=== PATIENT | female | born 1995 | race Caucasian/White ===

== ENCOUNTER → 2017-09-06 14:10 | Outpatient (CLI) | payer SELFPAY ==
--- NOTE | 2017-09-06 14:15 | RAD_ITS ---
STUDY: X-RAY - LEFT ANKLE REASON FOR EXAM: Female, 21 years old. Pain and swelling following a fall. TECHNIQUE: 3 view(s) of the ankle. COMPARISON: None. FINDINGS: Normal visualized distal tibia and fibula. Normal medial and lateral malleoli. Normal tibiotalar articulation and ankle mortise. Normal visualized talus and calcaneus. The visualized subtalar, talonavicular, calcaneocuboid and tarsal articulations are normal. Lateral soft tissue swelling. RAD/Ankle min 3 Views IMPRESSION: Lateral soft tissue swelling. No fracture is seen. Electronically Signed: Chano Rodriguez MD at 14:32 EDT Tel [phone], Service support ,
== END ==
PROVIDERS: Family Provider Family Medicine; PCP Family Medicine; Visit Provider Physician Assistant
DX: S93.402A Sprain of unspecified ligament of left ankle, initial encounter (principal)
CPT/HCPCS: 73610

== ENCOUNTER 2018-12-03 19:09 | Emergency (ER) | payer SELFPAY ==
[2018-12-03 19:10] VITALS: BP 128/77; PULSE 96; RESP 16; TEMP 37.4; O2SAT 95; BMI 24.6
--- NOTE | 2018-12-03 19:29 | EKG12_ITS ---
Test Reason : CP Blood Pressure : / mmHG Vent. Rate : 090 BPM Atrial Rate : 090 BPM P-R Int : 130 ms QRS Dur : 076 ms QT Int : 358 ms P-R-T Axes : 042 090 027 degrees QTc Int : 437 ms Normal sinus rhythm Rightward axis Borderline ECG Confirmed by DANDY HAMM ([id number]), social media editor ADA THAPA ([id number]) on 12/10/2018 9:02:34 AM Referred By: RU Confirmed By:DANYD HAMM
--- NOTE | 2018-12-03 19:50 | RAD_ITS ---
STUDY: X-RAY CHEST REASON FOR EXAM: Female, 23 years old. Chest pain TECHNIQUE: Frontal and lateral views of the chest COMPARISON: None. FINDINGS: The lungs are clear. There are no pleural effusions. There is no pneumothorax. The heart is normal in size. There is scoliosis noted in the spine. RAD/Chest PA and Lateral IMPRESSION: No acute thoracic pathology. Scoliosis. Electronically Signed: Ha Tabor, at 20:54 EDT Tel , Service support ,
[2018-12-03 19:53] LABS: Absolute Lymphocyte Count 2.42 X10^3/uL (0.83-4.51); Absolute Neutrophil Count 3.8 X10^3/uL (2.0-7.7); Basophil# 0.05 X10^3/uL; Basophil% 0.7 % (0-1); Eosinophil# 0.14 X10^3/uL; Hematocrit 41.1 % (37-47); Hemoglobin 13.9 g/dL (12.0-15.0); Lymphocyte # 2.42 X10^3/ul (4.0); Lymphocyte % 34.6 % (19-41); Mean Corp Hgb Conc 33.8 g/dL (32-36); Mean Corpuscular Hgb 30.5 pg (27.0-32.0); Mean Corpuscular Volume 90.3 fL (81-99); Mean Platelet Vol. 11.4 fl (6.2-12.0); Monocyte# 0.59 X10^3/uL; Monocyte% 8.4 % (0-10); NRBC Flagged by Analyzer 0 % (0-5); Neutrophil # 3.77 X10^3/uL (2.7-7.7); Platelet Count 202 K/mm3 (150-450); RBC Distribution Width CV 12.1 % (11.6-14.6); Red Blood Count 4.55 M/mm3 (4.2-5.4)
[2018-12-03 20:11] LABS: Anion Gap 6 (5-15); BUN 8 mg/dL (7-18); BUN/Creat Ratio 13.9 RATIO (10-20); Calcium,Total 8.9 mg/dL (8.5-10.1); Chloride 107 mmol/L (98-107); Creatinine, Serum 0.58 mg/dL (0.55-1.02); EST Glomerular Filtration Rate 136 mL/min (>60); Est Glom Filt Rate - Afr Amer 165 mL/min (>60); Estimated Creatinine Clearance 129.53 ml/min; Glucose 84 mg/dL (74-106); Potassium 3.7 mmol/L (3.5-5.1); Sodium Level 138 mmol/L (136-145)
--- NOTE | 2018-12-03 20:50 | ED.VIS.GEN ---
History of Present Illness Chief Complaint: Chest Pain Past Medical History - Allergies and Home Meds Allergies/Adverse Reactions: Allergies Penicillins [PCN] Adverse Reaction (Verified 09/06/17 13:18) Nausea/Vom/Diarrhea Primary Care Physician: Nelida Pablo DO [Primary Care Provider] - Smoking Status: Current some day smoker Physical Exam Vital Signs/Narrative: Vital Signs Temp Pulse Resp BP Pulse Ox 12/03/18 19:10 99.3 F H 96 16 128/77 H 95 Diagnostic/Tx/Re-eval Chest X-Ray - ED: 2 View, Read by ED Physician, No Acute Disease Abnormal Lab Results 12/03/18 12/03/18 19:45 19:45 WBC 7.0 RBC 4.55 Hgb 13.9 Hct 41.1 MCV 90.3 MCH 30.5 MCHC 33.8 RDW Std Deviation 40.0 RDW Coeff of Caitlin 12.1 Plt Count 202 MPV 11.4 Immature Gran % (Auto) 0.300 Neut % (Auto) 54.0 Lymph % (Auto) 34.6 [place]in % (Auto) 8.4 Eos % (Auto) 2.0 Baso % (Auto) 0.7 Absolute Neuts (auto) 3.8 Absolute Lymphs (auto) 2.42 Nucleated RBC % 0 Sodium 138 Potassium 3.7 Chloride 107 Carbon Dioxide 25.0 Anion Gap 6 BUN 8 Creatinine 0.58 Estim Creat Clear Calc 129.53 Est GFR (MDRD) Af Amer 165 Est GFR (MDRD) Non-Af 136 BUN/Creatinine Ratio 13.9 Glucose 84 Calcium 8.9 Troponin I < 0.015 - EKG Initial EKG Interpretation: Sinus Rhythm - Sinus rate of 90, no ST changes. Nonspecific T wave inversion in leads III. Old when compared to September 2009. Thank you - Medical Decision Making Patient EKG with nonspecific findings. Cardiac risk factors tobacco with vaping. PERC criteria negative. Chest x-ray reviewed by myself 2 view shows no acute process. Cardiac work-up was negative. Heart score is a 1. Discussed with patient's history of tobacco and vaping this is concerning that can cause her symptoms recommending cessation. Patient understands and will follow up with her PCP for reevaluation. Signs and symptoms discussed return. All questions were answered. ED Disposition - Plan for ED Patient: Disposition: Home or Assisted Living Diagnosis: Chest pain Instructions: CHEST PAIN, Uncertain Cause Referrals: Nelida Pablo DO [Primary Care Provider] - 3-5 Days
[2018-12-03 21:05] VITALS: BP 103/70; PULSE 84; RESP 18; O2SAT 97
== END 2018-12-03 21:05 | disposition home or self-care (01) ==
PROVIDERS: Emergency Provider Emergency Medicine; Family Provider Family Medicine; PCP Family Medicine
DX: R07.9 Chest pain, unspecified (principal); F17.290 Nicotine dependence, other tobacco product, uncomplicated
CPT/HCPCS: 71046; 80048; 84484; 85025; 93005; 99284; A4216

== ENCOUNTER → 2019-08-28 | Outpatient (CLI) | payer SELFPAY | END | disposition home or self-care (01) | PROVIDERS: PCP Family Medicine; Referring Provider Family Medicine; Visit Provider Family Medicine | DX: Z20.828 Contact with and (suspected) exposure to other viral communicable diseases (principal) | CPT/HCPCS: 87635; G2023; U0003 ==

== ENCOUNTER → 2020-06-19 11:53 | Outpatient (CLI) | payer OTHER, SELFPAY ==
[2020-06-19 13:59] LABS: hCG Titer Quant., Serum 2 mIU/mL (1-3)
== END ==
PROVIDERS: PCP Family Medicine; Visit Provider Obstetrics & Gynecology
DX: N92.6 Irregular menstruation, unspecified (principal)
CPT/HCPCS: 36415; 84702; 86850; 86900; 86901

== ENCOUNTER 2020-06-19 18:43 | Emergency (ER) | payer OTHER, SELFPAY ==
[2020-06-19 18:44] VITALS: BP 125/85; PULSE 79; RESP 17; TEMP 36.6; O2SAT 100; BMI 28.8
--- NOTE | 2020-06-19 19:13 | US_ITS ---
INDICATION: bleeding EXAMINATION: US OB Transvaginal TECHNIQUE: Transabdominal pelvic ultrasound was performed. Grayscale, spectral waveform, and color flow Doppler evaluation of the adnexa. COMPARISON: None. FINDINGS: UTERUS: Measures 9.2 x 4.9 x 4 cm. Heterogeneous endometrium. RIGHT OVARY: Measures 2.5 x 2.6 x 2.6 cm. Normal. LEFT OVARY: Measures 2.3 x 2.6 x 1.3 cm. Normal. FREE FLUID: None. INTRAUTERINE GESTATIONAL SAC(s) (size/shape): None visualized. US/Transvaginal w/Preg US IMPRESSION: Constellation of findings including non-visualized IUP, heterogeneous endometrium, heavy vaginal bleeding and downtrending hcg indicate an in progress. Electronically Signed: Burton Egan MD at 21:39 EDT Tel , Service support ,
--- NOTE | 2020-06-19 19:24 | EDS_ITS ---
HPI HPI - Female History of Present Illness Chief Complaint: Vag Bld, Preg Informant: patient Narrative Narrative: 24-year-old female presents with vaginal bleeding in . Patient states she had a positive home test. She went to her family doctor and had a negative urine test. She was then sent for a serum quant test which she had performed [facility] on June 16. She states she was told this was consistent with a 4-week . She started having bleeding today which she describes as heavier than a normal period. She has lower pelvic cramping. She denies other complaints. PFSH PFSH Home Medications hydroxyzine HCl 50 mg tablet 50 mg PO DAILY 09/06/17 [History Last Taken Unknown] minocycline 50 mg capsule 50 mg PO QDAY 09/06/17 [History Last Taken Unknown] Allergy/AdvReac Type Severity Reaction Status Date / Time Penicillins [PCN] AdvReac Nausea/Vom/ Verified 06/19/20 18:44 Diarrhea Social History Smoking Status: Current some day smoker alcohol intake: current alcohol intake frequency: a few times a month ROS ROS ED Constitutional Constitutional ED: Denies fever(s) ENT ENT ED: Denies rhinorrhea or sore throat Cardiovascular Cardiovascular: Denies chest pain or palpitations Respiratory/Chest Respiratory/Chest: Denies cough or dyspnea Gastrointestinal Gastrointestinal: Reports abdominal pain; Denies diarrhea, nausea or vomiting Genitourinary Genitourinary ED: Denies dysuria Musculoskeletal Musculoskeletal: Denies myalgias Integumentary Denies rash Neurologic Neurologic: Denies headache(s) EXAM Physical Exam Const Vital Signs: 06/19/20 18:44 Temperature 97.8 F Temperature Source Temporal Pulse Rate 79 Respiratory Rate 17 Blood Pressure 125/85 H Blood Pressure Mean 98 Pulse Ox 100 Oxygen Delivery Method Room Air Positive well nourished and well developed General Appearance ED: well developed HEENT Reports normocephalic and head/scalp atraumatic Eyes PERRL and EOMs intact bilaterally Neck supple General: Negative for tenderness Chest Wall inspection of chest normal Resp normal respiratory effort and clear to auscultation bilaterally Cardio regular rate and regular rhythm GI soft to palpation GI Narrative: mild left lower quadrant tenderness with no rebound or guarding. Pelvic exam: blood is cleared with cotton swab. She has no active bleeding. Cervix is closed. Palpation: soft; Negative for guarding or rebound tenderness present no CVA tenderness Extremity normal to inspection Neuro oriented x3 Sensorium / Orientation: alert Psych mental status grossly normal MDM MDM MDM Narrative Medical decision making narrative: hCG quant was obtained from [employer] and was 12 on June 16. Blood type O+. Quant today 2. She was given Tylenol, morphine, Zofran IV. On reevaluation she is resting comfortably and feeling improved. Pelvic ultrasound shows findings indicating an in progress. Discussed with Dr. Ngo. Patient will follow-up in the office. Advised return to ED for worsening complaints. Lab Data Attestation: I reviewed the patient's lab results. Labs: Laboratory Results - last 24 hr 06/19/20 20:00 HCG, Quant 2 Radiography Diagnostic Testing: Radiology Impression Obstetrics Ultrasound 06/19/20 19:13 IMPRESSION: Constellation of findings including non-visualized IUP, heterogeneous endometrium, heavy vaginal bleeding and downtrending hcg indicate an in progress. Electronically Signed: Burton Egan MD at 21:39 EDT Tel , Service support , Discharge Plan Triage Chief Complaint: Vag Bld, Preg ED Provider: Beverly Castillo Dx/Rx/DC Orders Clinical Impression: Threatened Instructions: ED Possible Miscarriage ... Prescriptions: No Action minocycline 50 mg capsule 50 mg PO QDAY RF: 0 hydroxyzine HCl 50 mg tablet 50 mg PO DAILY RF: 0 Primary Care Provider: Nelida Pablo Referrals: Nelida Pablo DO [Primary Care Provider] - Nohelia Ngo MD [STAFF PHYSICIAN] - Disposition Disposition: Home, self care
[2020-06-19] MEDS: Acetaminophen 500 MG Tablet 1000 MG PO (20:11)
[2020-06-19] MEDS: Morphine 2 MG/ML Syringe IV (20:12)
[2020-06-19] MEDS: Ondansetron 4 MG/2 ML Vial IV (20:12)
[2020-06-19 20:27] LABS: hCG Titer Quant., Serum 2 mIU/mL (1-3)
== END 2020-06-19 22:36 | disposition home or self-care (01) ==
PROVIDERS: Emergency Provider Emergency Medicine; PCP Family Medicine
DX: O20.0 Threatened abortion (principal); F17.200 Nicotine dependence, unspecified, uncomplicated; Z3A.01 Less than 8 weeks gestation of pregnancy
CPT/HCPCS: 76817; 84702; 96374; 96375; 99284; A4216; J2405

== ENCOUNTER 2021-04-27 14:10 | Outpatient (CLI) | payer BC, SELFPAY ==
[2021-05-03 15:59] LABS: HPV Reflexed? NOT INDICATED
== END 2021-04-27 23:59 | disposition home or self-care (01) ==
PROVIDERS: PCP Family Medicine; Referring Provider Nurse Practitioner Women's Health; Visit Provider Nurse Practitioner Women's Health
DX: Z12.4 Encounter for screening for malignant neoplasm of cervix (principal)
CPT/HCPCS: 88175; G0145

== ENCOUNTER → 2021-08-24 | Outpatient (CLI) | payer BC, SELFPAY ==
[2021-08-24 13:52] LABS: hCG Titer Quant., Serum 15248 mIU/mL (1-3)
[2021-08-27 00:07] LABS: Chlamydia By Nucleic Acid AMP Negative (Negative)
[2021-08-27 07:49] LABS: Gonococcus By Nucleic Acid AMP Negative (Negative)
== END | disposition home or self-care (01) ==
PROVIDERS: Referring Provider Obstetrics & Gynecology; Visit Provider Obstetrics & Gynecology
DX: O20.0 Threatened abortion (principal); Z3A.00 Weeks of gestation of pregnancy not specified
CPT/HCPCS: 36415; 84702; 87491; 87591

== ENCOUNTER → 2021-08-26 | Outpatient (CLI) | payer BC, SELFPAY ==
[2021-08-26 13:17] LABS: hCG Titer Quant., Serum 23039 mIU/mL (1-3)
== END | disposition home or self-care (01) ==
LOC: LAB 11:55
PROVIDERS: Visit Provider Obstetrics & Gynecology
DX: O20.0 Threatened abortion (principal)
CPT/HCPCS: 36415; 84702

== ENCOUNTER → 2021-09-20 | Outpatient (CLI) | payer BC, SELFPAY ==
[2021-09-20 17:14] LABS: Amphetamine Urine VISTA NEGATIVE (<1000 ng/mL); Barbiturate Urine VISTA NEGATIVE (< 200 ng/mL); Benzodiazepine Urine VISTA NEGATIVE (< 200 ng/mL); Cocaine Urine VISTA NEGATIVE (< 300 ng/mL); Ecstacy Urine VISTA NEGATIVE (< 500 ng/mL); Methadone Urine VISTA NEGATIVE (< 300 ng/mL); PCP Urine VISTA NEGATIVE (< 25 ng/mL); THC Urine VISTA NEGATIVE (< 50 ng/mL); Vista UDS pH Range 5
[2021-09-23 06:07] LABS: Chlamydia By Nucleic Acid AMP Negative (Negative)
[2021-09-23 07:35] LABS: Gonococcus By Nucleic Acid AMP Negative (Negative)
== END | disposition home or self-care (01) ==
LOC: LABSPEC 16:25
PROVIDERS: Visit Provider Obstetrics & Gynecology
DX: Z34.90 Encounter for supervision of normal pregnancy, unspecified, unspecified trimester (principal)
CPT/HCPCS: 80307; 87086; 87491; 87591

== ENCOUNTER 2021-10-13 14:52 | Emergency (ER) | payer BC, SELFPAY ==
[2021-10-13 14:53] VITALS: BP 130/72; PULSE 90; RESP 16; TEMP 36.6; O2SAT 99; BMI 34.2
--- NOTE | 2021-10-13 14:57 | ED.RN ---
PT TOOK HYDRALAZING 25 MG AT 1430
--- NOTE | 2021-10-13 15:40 | US_ITS ---
STUDY: FIRST TRIMESTER OBSTETRICAL ULTRASOUND EXAMINATION OF 1612 HOURS ON 10/13/2021 REASON FOR EXAM: 25-year-old female at 13 weeks with cramping. LMP: 07/13/2021. TECHNIQUE: TECHNICAL QUALITY: Adequate. PRIOR ULTRASOUND: None. FINDINGS: There is a mildly enlarged uterus compatible with early . It measures 15.5 cm in length by 9.4 centers in AP diameter by 14.7 cm in transverse diameter. There is evidence of a cingulate uterine with a crown-rump length measurement of 7.7 cm, compatible gestational age of 13 weeks and 4 days. By last menstrual period, it would be 13 weeks 1 day. There is a heart rate is 157 bpm. There is a normal amount of amniotic fluid present for age. There is anterior grade 1 placenta without evidence of previa or abruption. Right ovary measures 2.6 cm x 1.7 cm x 2.4 cm and the left ovary measures 3.1 cm x 1.8 cm x 1.6 cm. There is no evidence of ovarian cystic or solid mass lesions. There is no evidence of ovarian torsion. There is no evidence of a pelvic mass lesions or free fluid in the cul-de-sac. US/Transvaginal w/Preg US IMPRESSION: 1. Single intrauterine with a gestational age of 13 weeks and 4 days (age by last menstrual. 13 weeks 1 day) with a heart rate of 157 bpm. 2. Normal amount of amniotic fluid for age. 3. Anterior grade 1 placenta without previa or abruption. 4. Mildly enlarged uterus compatible with early . 5. Normal-appearing ovaries without cystic or solid mass lesions or torsion. 6. No evidence of pelvic mass lesions or free fluid in the cul-de-sac. Electronically Signed: Jameel Huff MD at 18:04 EDT ,
--- NOTE | 2021-10-13 15:43 | EX.ED.DYSGE1 ---
HPI History of Present Illness Chief Complaint: Abd Pain Informant: patient and family Narrative Narrative: History is from patient and mother. This patient is 13 weeks . She is G2, P0. She had a miscarriage about a year ago. She states she has been having nausea vomiting abdominal cramping and she is very anxious and she just needs to know that everything is okay. She has been having nausea and vomiting throughout this . She did not talk to her [employer] physician about it because she thought this was normal. She has been getting her intermittent nausea vomiting and cramping mostly in the lower abdomen the entire . It has been a little bit worse the last few weeks. She is also had some constipation but is moving her bowels. She has had a small amount of bleeding intermittently with intercourse but is not having bleeding now. No leakage of fluid. Most of her abdominal cramping is in the lower abdomen. This is where it has been since early . No fevers or chills. No right upper quadrant pain. No chest pain or trouble breathing. She also admits to being very anxious but she has a history of anxiety. [facility] Medical History Anxiety Anxiety Complete Ear discomfort Otitis externa of right ear PTSD (post-traumatic stress disorder) Supervision of normal Home Medications fluoxetine 20 mg capsule (Prozac) 20 mg PO DAILY 04/27/21 [History Last Taken Unknown] docosahexaenoic acid 200 mg capsule ( DHA) mg PO 08/24/21 [History Last Taken Unknown] ondansetron 4 mg disintegrating tablet 4 mg PO Q8H PRN nausea and vomiting #10 tabs 10/13/21 [Rx Last Taken Unknown] Allergy/AdvReac Type Severity Reaction Status Date / Time Penicillins [PCN] AdvReac Nausea/Vom/ Verified 10/13/21 14:56 Diarrhea Family History Mother Breast cancer, Onset Age: 47 Social History adopted: No household members: significant other housing: house current occupation: [employer] current occupational exposures/hazards: No pets and animals: Yes (Not managing the litter boxes) pets and animals: cat(s) history of recent travel: No Smoking Status: Never smoker Electronic Cigarette Use: with nicotine and not used alcohol intake: former details: social substance use type: does not use well-balanced diet: about half the time caffeine: Yes Type: carbonated beverages Number of servings: 1 and coffee Number of servings: 1 eating out: 1-3 times/week during the past year weight has: remained stable what type of physical activity do you participate in: none daniel/yarsani: None seatbelt use: always do you feel safe at home: Yes additional social history: ALYSSA Reina Works at [employer] ROS ROS ED Constitutional Constitutional ED: Denies chills, fever(s) or sweats Eyes Eyes: Denies change in vision ENT ENT ED: Reports other Details: Patient also had a negative COVID test just several days ago. ; Denies rhinorrhea or sore throat Cardiovascular Cardiovascular: Denies chest pain or palpitations Respiratory/Chest Respiratory/Chest: Denies cough or dyspnea Gastrointestinal Gastrointestinal: Reports abdominal pain, constipation, nausea and vomiting; Denies diarrhea or melena Genitourinary Genitourinary ED: Denies dysuria, hematuria or urinary frequency Musculoskeletal Musculoskeletal: Reports back pain and other Details: She does get some lumbar discomfort but this is not new or different. Integumentary Denies rash Neurologic Neurologic: Denies headache(s) or paresthesias Psychiatric Psychiatric: Reports anxiety Endocrine Endocrinology: Denies polydipsia or polyuria Hematologic/Lymphatic Hematologic/Lymphatic: Denies easy bleeding or easy bruising EXAM Physical Exam Const Vital Signs: 10/13/21 14:53 10/13/21 17:44 Temperature 97.9 F Temperature Source Temporal Pulse Rate 90 Respiratory Rate 16 16 Blood Pressure 130/72 H Blood Pressure Mean 91 Pulse Ox 99 Oxygen Delivery Method Room Air Positive well developed General Appearance ED: well developed and NAD HEENT HEENT Narrative: Mucous membranes are just minimally dry. Eyes General Eye ED: Negative for scleral icterus Chest Wall inspection of chest normal Resp normal respiratory effort and clear to auscultation bilaterally Cardio regular rate and regular rhythm GI normal to inspection, nondistended, normoactive bowel sounds, non-tender and non-distended GI Narrative: Patient gets cramping of her lower abdomen. But her abdomen exam is benign. There is no tenderness anywhere. Her bowel sounds are normal. Back/Spine no CVA tenderness Extremity normal to inspection General Extremety ED: Negative for edema or tenderness General Extremity: Negative for edema Neuro Sensorium / Orientation: alert Psych Mood & Affect: anxious; Negative for tearful Skin no rashes or lesions noted MDM MDM MDM Narrative Medical decision making narrative: CBC electrolytes and urine are normal. Patient's recheck. She feels great and wants to go out to eat. She is not nauseated at all. We then got her ultrasound back that shows no acute process. I will get her home on some Zofran. She will follow-up with her [employer]. She has an appointment coming up in just a short time. Lab Data Attestation: I reviewed the patient's lab results. Labs: Laboratory Results - last 24 hr 10/13/21 10/13/21 10/13/21 15:52 15:52 15:52 WBC 10.5 RBC 4.22 Hgb 13.2 Hct 37.7 MCV 89.3 MCH 31.3 MCHC 35.0 RDW Std Deviation 39.9 RDW Coeff of Caitlin 12.3 Plt Count 276 MPV 10.8 Immature Gran % (Auto) 0.400 Neut % (Auto) 69.6 Lymph % (Auto) 22.4 Sharp % (Auto) 6.2 Eos % (Auto) 1.1 Baso % (Auto) 0.3 Absolute Neuts (auto) 7.3 Absolute Lymphs (auto) 2.34 Nucleated RBC % 0 Sodium 137 Potassium 3.8 Chloride 104 Carbon Dioxide 26.0 Anion Gap 7 BUN 8 Creatinine 0.53 L Estim Creat Clear Calc 114.53 Est GFR (MDRD) Af Amer 176 Est GFR (MDRD) Non-Af 146 BUN/Creatinine Ratio 15.0 Glucose 83 Calcium 9.5 Urine Color Straw Urine Clarity Clear Urine pH 6.5 Ur Specific [place] 1.010 Urine Protein Negative Urine Glucose (UA) Normal Urine Ketones Negative Urine Occult Blood Negative Urine Nitrite Negative Urine Bilirubin Negative Urine Urobilinogen Normal Ur Leukocyte Esterase Negative Urine RBC 0 SEEN Urine WBC 0 SEEN Ur Squamous Epith Cells 0 SEEN Ur Transition Epith Cell 0-5 SEEN Urine Bacteria 1+ Urine Mucus 0 SEEN Radiography Diagnostic Testing: Clinical Impression(s) from Imaging Studies Obstetrics Ultrasound 10/13/21 15:40 IMPRESSION: 1. Single intrauterine with a gestational age of 13 weeks and 4 days (age by last menstrual. 13 weeks 1 day) with a heart rate of 157 bpm. 2. Normal amount of amniotic fluid for age. 3. Anterior grade 1 placenta without previa or abruption. 4. Mildly enlarged uterus compatible with early . 5. Normal-appearing ovaries without cystic or solid mass lesions or torsion. 6. No evidence of pelvic mass lesions or free fluid in the cul-de-sac. Electronically Signed: Jameel Huff MD at 18:04 EDT , Discharge Plan Triage Chief Complaint: Abd Pain ED Provider: James Shearer Dx/Rx/DC Orders Clinical Impression: Hyperemesis gravidarum Instructions: ED Hyperemesis Gravidarum Prescriptions: New ondansetron 4 mg tablet,disintegrating 4 mg PO Q8H PRN (Reason: nausea and vomiting) Qty: 10 0RF No Action fluoxetine [Prozac] 20 mg capsule 20 mg PO DAILY DHA 200 mg capsule PO Primary Care Provider: Care Physician,No Primary Referrals: Nohelia Ngo MD [Med Staff - Active Staff] - As soon as possible Care Physician,No Primary [Primary Care Provider] - Disposition Disposition: Home, Self Care
[2021-10-13] MEDS: 0.9% Normal Saline 1,000 ML 1000 ML IV (15:51)
[2021-10-13] MEDS: Ondansetron 4 MG/2 ML Vial IV (15:52)
[2021-10-13 16:06] LABS: Mucous, Urine 0 SEEN /hpf (<or=2+); Red Blood Cells-Urine 0 SEEN /hpf (0-5); Squamous Epithelial Cells - UA 0 SEEN /hpf (5-10); White Blood Cells 0 SEEN /hpf (0-5)
[2021-10-13 16:10] LABS: Color, Urine Straw (Yellow); Glucose, Dipstick Normal (Normal); Ketone-Dipstick Negative (Negative); Leukocyte Esterase-Dipstick Negative /ul (Negative); Nitrite-Dipstick Negative (Negative); Occult Blood-Urine Negative /ul (Negative); Protein-Dipstick Negative (Negative); Urine Bilirubin Dipstick Negative (Negative); Urine Clarity Clear (Clear); Urine Urobilinogen Normal (Normal); Urine pH 6.5 (5.0 - 8.0)
[2021-10-13 16:11] LABS: Absolute Lymphocyte Count 2.34 X10^3/uL (0.83-4.51); Absolute Neutrophil Count 7.3 X10^3/uL (2.0-7.7); Basophil# 0.03 X10^3/uL; Basophil% 0.3 % (0-1); Eosinophil# 0.11 X10^3/uL; Eosinophils% 1.1 % (0-5); Hematocrit 37.7 % (37-47); Hemoglobin 13.2 g/dL (12.0-15.0); Lymphocyte # 2.34 X10^3/ul (0.83-4.51); Lymphocyte % 22.4 % (19-41); Mean Corpuscular Hgb 31.3 pg (27.0-32.0); Mean Corpuscular Volume 89.3 fL (81-99); Mean Platelet Vol. 10.8 fl (6.2-12.0); Monocyte# 0.65 X10^3/uL; Monocyte% 6.2 % (0-10); NRBC Flagged by Analyzer 0 % (0-5); Neutrophil # 7.28 X10^3/uL (2.7-7.7); Neutrophil % 69.6 % (47-70); Platelet Count 276 K/mm3 (150-450); RBC Distribution Width CV 12.3 % (11.6-14.6); RBC Distribution Width SD 39.9 fl (35.1-43.9); Red Blood Count 4.22 M/mm3 (4.2-5.4); White Blood Count 10.5 K/mm3 (4.4-11.0)
[2021-10-13 16:22] LABS: Anion Gap 7 (5-15); BUN 8 mg/dL (7-18); Calcium,Total 9.5 mg/dL (8.5-10.1); Chloride 104 mmol/L (98-107); Creatinine, Serum 0.53 mg/dL (0.55-1.02); EST Glomerular Filtration Rate 146 mL/min (>60); Est Glom Filt Rate - Afr Amer 176 mL/min (>60); Estimated Creatinine Clearance 114.53 ml/min; Glucose 83 mg/dL (74-106); Potassium 3.8 mmol/L (3.5-5.1); Sodium Level 137 mmol/L (136-145); Transitional Epithelial - Ur 0-5 SEEN /hpf (0-5)
[2021-10-13 16:23] LABS: Bacteria 1+ /hpf (None Seen)
[2021-10-13 17:44] VITALS: RESP 16
== END 2021-10-13 18:30 | disposition home or self-care (01) ==
PROVIDERS: Emergency Provider Emergency Medicine; Visit Provider Emergency Medicine
DX: O21.0 Mild hyperemesis gravidarum (principal); O99.341 Other mental disorders complicating pregnancy, first trimester; F41.9 Anxiety disorder, unspecified; Z79.899 Other long term (current) drug therapy; Z3A.13 13 weeks gestation of pregnancy
CPT/HCPCS: 76817; 80048; 81001; 85025; 96361; 96374; 99283; J2405

== ENCOUNTER → 2021-10-18 | Outpatient (CLI) | payer BC, SELFPAY ==
[2021-10-18 13:33] LABS: Absolute Lymphocyte Count 1.88 X10^3/uL (0.83-4.51); Absolute Neutrophil Count 6.9 X10^3/uL (2.0-7.7); Basophil# 0.03 X10^3/uL; Basophil% 0.3 % (0-1); Eosinophil# 0.15 X10^3/uL; Eosinophils% 1.6 % (0-5); Hematocrit 35.6 % (37-47); Hemoglobin 12.2 g/dL (12.0-15.0); Lymphocyte # 1.88 X10^3/ul (0.83-4.51); Lymphocyte % 19.9 % (19-41); Mean Corp Hgb Conc 34.3 g/dL (32-36); Mean Corpuscular Volume 90.6 fL (81-99); Mean Platelet Vol. 11.6 fl (6.2-12.0); Monocyte# 0.48 X10^3/uL; Monocyte% 5.1 % (0-10); NRBC Flagged by Analyzer 0 % (0-5); Neutrophil # 6.89 X10^3/uL (2.7-7.7); Neutrophil % 72.8 % (47-70); Platelet Count 237 K/mm3 (150-450); RBC Distribution Width CV 12.4 % (11.6-14.6); RBC Distribution Width SD 41.1 fl (35.1-43.9); Red Blood Count 3.93 M/mm3 (4.2-5.4); White Blood Count 9.5 K/mm3 (4.4-11.0)
[2021-10-18 13:56] LABS: Glucose Challenge Gest 1H 50g 128 mg/dL (70-140)
[2021-10-18 15:51] LABS: HIV - WCH Non-Reactive (Nonreactive); Hepatitis B Surface Antigen Non-Reactive (Nonreactive); Hepatitis C Antibody Non-Reactive (Nonreactive); Rubella IgG Reactive (Nonreactive); Syphilis Antibodies Non-reactive
== END | disposition home or self-care (01) ==
PROVIDERS: Visit Provider Obstetrics & Gynecology
DX: O99.210 Obesity complicating pregnancy, unspecified trimester (principal)
CPT/HCPCS: 36415; 82950; 85025; 86703; 86762; 86780; 86803; 86850; 86900; 86901; 87340

== ENCOUNTER → 2021-11-29 | Outpatient (CLI) | payer BC, SELFPAY ==
--- NOTE | 2021-11-29 07:54 | US_ITS ---
STUDY: SECOND AND THIRD TRIMESTER OBSTETRICAL ULTRASOUND REASON FOR EXAM: Female, 26 years old anatomy LMP: Unknown. TECHNIQUE: Transabdominal and Transvaginal TECHNICAL QUALITY: Adequate. PRIOR ULTRASOUND: Comparison is made with prior study 10/13/2021. FINDINGS: There is a single intrauterine fetus. The fetus is in a transverse lie with the head on the maternal right side. There is demonstrated cardiac activity with a heart rate of 140 bpm. There is a normal amniotic fluid volume. The largest amniotic fluid pocket measures 5.6 cm x 3 cm. The amniotic fluid index (SCOTT) is within normal limits. The placenta is anterior in location and is not low lying. There are Grade 0 placental changes. The cervix measures 5 cm in length. The bilateral adnexal regions are normal. BIOMETRY: BPD: 4.9 cm: 20 weeks, 5 days HC: 17.13 cm: 19 weeks, 5 days AC: 15.8 cm: 20 weeks, 6 days FL: 3 cm: 19 weeks, 2 days CI: 86% FL/BPD: 62% FL/HC: FL/AC: 19% HC/AC: 1.09 age by current US: 19 weeks, 5 days. NADEGE by current US: 04/20/2022. Estimated weight: 343 grams, +/- 52 grams, 97 %. age by prior US: 20 weeks, 2 days. NADEGE by prior US: 04/16/2022. Age by LMP: 19 weeks, 0 days. NADEGE by LMP: 04/25/2022. ANATOMY: Gender: Male Cranium: Normal lateral ventricles. Normal choroid plexus. Normal cerebellum. Normal cisterna magna. Normal face, nose and lips. Chest: Normal 4-chamber heart. Abdomen/Pelvis: Normal diaphragm. Normal stomach. Normal abdominal wall. Normal cord insertion. Normal 3 vessel cord. Normal kidneys. Normal bladder. Spine: Normal cervical spine. Normal thoracic spine. Normal lumbar spine. Normal sacrum. Extremities: Normal bilateral upper extremities. Normal bilateral lower extremities. IMPRESSION: Single live uterine gestation with a mean gestational age of 20 weeks and 2 days. The measurements obtained today fail within the normal expected range. Electronically Signed: Chano Rodriguez MD at 14:08 EDT , STUDY: FIRST TRIMESTER OBSTETRICAL ULTRASOUND REASON FOR EXAM: Female, 26 years old . Cervical length measurement. LMP: Unknown. TECHNIQUE: Transvaginal TECHNICAL QUALITY: Adequate. PRIOR ULTRASOUND: None. FINDINGS: The cervical length measures 5 cm. US/OB Anatomy Scan IMPRESSION: Cervical length measures 5 cm. Electronically Signed: Chano Rodriguez MD at 14:09 EDT ,
== END | disposition home or self-care (01) ==
LOC: OPUS 07:53
PROVIDERS: Referring Provider Registered Nurse; Visit Provider Registered Nurse
DX: Z34.90 Encounter for supervision of normal pregnancy, unspecified, unspecified trimester (principal); Z3A.20 20 weeks gestation of pregnancy
CPT/HCPCS: 76805; 76817

== ENCOUNTER 2022-01-19 23:15 | Emergency (ER) | payer OTHER, SELFPAY ==
[2022-01-19 23:17] VITALS: BP 123/76; PULSE 75; RESP 16; TEMP 36.9; O2SAT 97; BMI 37.3
--- NOTE | 2022-01-19 23:39 | EX.ED.DYSGE1 ---
HPI History of Present Illness Chief Complaint: Chest Other [facility] Medical History Anxiety Anxiety Complete Ear discomfort Otitis externa of right ear PTSD (post-traumatic stress disorder) Supervision of normal Home Medications docosahexaenoic acid 200 mg capsule ( DHA) 200 mg PO DAILY 08/24/21 [History Last Taken Unknown] hydroxyzine pamoate 25 mg capsule (Vistaril) 25 mg PO BID PRN nausea and vomiting #90 caps 10/18/21 [Rx Last Taken Unknown] ondansetron 4 mg disintegrating tablet 4 mg PO Q8H PRN nausea and vomiting #90 tabs 10/18/21 [Rx Last Taken Unknown] betamethasone dipropionate 0.05 % topical cream 1 applic topical DAILY PRN itching #45 grams 12/16/21 [Rx Last Taken Unknown] fluoxetine 40 mg capsule (Prozac) 40 mg PO DAILY 01/19/22 [History Last Taken Unknown] Allergy/AdvReac Type Severity Reaction Status Date / Time Penicillins [PCN] AdvReac Nausea/Vom/ Verified 01/19/22 23:30 Diarrhea Family History Mother Breast cancer, Onset Age: 47 Social History adopted: No household members: significant other housing: house current occupation: [employer] current occupational exposures/hazards: No pets and animals: Yes (Not managing the litter boxes) pets and animals: cat(s) history of recent travel: No Smoking Status: Never smoker Electronic Cigarette Use: with nicotine and not used alcohol intake: former details: social substance use type: does not use well-balanced diet: about half the time caffeine: Yes Type: carbonated beverages Number of servings: 1 and coffee Number of servings: 1 eating out: 1-3 times/week during the past year weight has: remained stable what type of physical activity do you participate in: none daniel/worship: None seatbelt use: always do you feel safe at home: Yes additional social history: ALYSSA Reina Works at [employer] EXAM Physical Exam Const Vital Signs: 01/19/22 23:17 01/19/22 23:31 Temperature 98.5 F Temperature Source Temporal Pulse Rate 75 Respiratory Rate 16 Respiratory Effort Normal Non-Labored Respiratory Pattern Normal Blood Pressure 123/76 H Blood Pressure Mean 91 Pulse Ox 97 Oxygen Delivery Method Room Air MDM MDM MDM Narrative Medical decision making narrative: Since patient is there is family history of biliary disease this may represent biliary colic due to cholelithiasis, cholecystitis, abdominal pain of unknown etiology. Will obtain CBC, liver panel and lipase. White count is elevated. This is not unexpected since she is and in her third trimester. Will order outpatient ultrasound. Lab Data Attestation: I reviewed the patient's lab results. Lab results narrative: White count is slightly elevated. AST and ALT are normal. Total bili is normal. Alkaline phosphatase is normal. Lipase is normal. Labs: Laboratory Results - last 24 hr 01/19/22 01/19/22 23:49 23:49 WBC 13.3 H RBC 3.75 L Hgb 11.5 L Hct 34.4 L MCV 91.7 MCH 30.7 MCHC 33.4 RDW Std Deviation 45.0 H RDW Coeff of Caitlin 13.5 Plt Count 237 MPV 10.8 Total Bilirubin 0.20 Direct Bilirubin 0.08 AST 11 L ALT 22 Alkaline Phosphatase 64 Total Protein 6.7 Albumin 2.9 L Globulin 3.8 Lipase 74 Discharge Plan Triage Chief Complaint: Chest Other ED Provider: Erasmo Boone Dx/Rx/DC Orders Clinical Impression: Right upper quadrant abdominal pain affecting in third trimester, Gestational diabetes, Anxiety Instructions: ED Abdominal Pain Unkn Cause Fem Prescriptions: No Action DHA 200 mg capsule 200 mg PO DAILY hydroxyzine pamoate [Vistaril] 25 mg capsule 25 mg PO BID PRN (Reason: nausea and vomiting) Qty: 90 6RF ondansetron 4 mg tablet,disintegrating 4 mg PO Q8H PRN (Reason: nausea and vomiting) Qty: 90 5RF betamethasone dipropionate 0.05 % cream 1 applic topical DAILY PRN (Reason: itching) Qty: 45 3RF fluoxetine [Prozac] 40 mg capsule 40 mg PO DAILY Primary Care Provider: Care Physician,No Primary Referrals: Nohelia Ngo MD [Med Staff - Active Staff] - Keep Brandon appointment Care Physician,No Primary [Primary Care Provider] - Activity Restrictions/Additional Instructions: You will need to call to make an appointment for an outpatient ultrasound of your right upper quadrant. Avoid greasy or fried foods. If you develop severe pain, vomiting or have dark-colored urine or appear yellow return to the emergency department Disposition Disposition: Home, Self Care
[2022-01-19 23:58] LABS: Hematocrit 34.4 % (37-47); Hemoglobin 11.5 g/dL (12.0-15.0); Mean Corp Hgb Conc 33.4 g/dL (32-36); Mean Corpuscular Hgb 30.7 pg (27.0-32.0); Mean Corpuscular Volume 91.7 fL (81-99); Mean Platelet Vol. 10.8 fl (6.2-12.0); Platelet Count 237 K/mm3 (150-450); RBC Distribution Width CV 13.5 % (11.6-14.6); Red Blood Count 3.75 M/mm3 (4.2-5.4); White Blood Count 13.3 K/mm3 (4.4-11.0)
[2022-01-20 00:16] LABS: AST(SGOT) 11 U/L (15-37); Alanine Aminotransfer ALT/SGPT 22 U/L (13-56); Albumin, Serum 2.9 g/dL (3.2-5.0); Alkaline Phosphatase 64 U/L (45-117); Bilirubin, Direct 0.08 mg/dL (0.00-0.30); Globulin 3.8 g/dL (2.2-4.2); Lipase 74 U/L (73-393); Protein, Total 6.7 g/dL (6.4-8.2)
[2022-01-20 00:29] VITALS: RESP 17
== END 2022-01-20 00:39 | disposition home or self-care (01) ==
PROVIDERS: Emergency Provider Emergency Medicine; Visit Provider Emergency Medicine
DX: O99.891 Other specified diseases and conditions complicating pregnancy (principal); O24.419 Gestational diabetes mellitus in pregnancy, unspecified control; O99.343 Other mental disorders complicating pregnancy, third trimester; O99.333 Smoking (tobacco) complicating pregnancy, third trimester; F41.9 Anxiety disorder, unspecified; F17.210 Nicotine dependence, cigarettes, uncomplicated; Z3A.00 Weeks of gestation of pregnancy not specified
CPT/HCPCS: 80076; 83690; 85027; 99283; A4216

== ENCOUNTER → 2022-01-19 | Outpatient (CLI) | payer OTHER, SELFPAY ==
[2022-01-19 12:41] LABS: Absolute Lymphocyte Count 2.02 X10^3/uL (0.83-4.51); Absolute Neutrophil Count 8.7 X10^3/uL (2.0-7.7); Basophil# 0.03 X10^3/uL; Basophil% 0.3 % (0-1); Eosinophil# 0.26 X10^3/uL; Eosinophils% 2.2 % (0-5); Hematocrit 32.9 % (37-47); Lymphocyte # 2.02 X10^3/ul (0.83-4.51); Lymphocyte % 17.3 % (19-41); Mean Corp Hgb Conc 33.4 g/dL (32-36); Mean Corpuscular Volume 92.7 fL (81-99); Monocyte# 0.58 X10^3/uL; NRBC Flagged by Analyzer 0 % (0-5); Neutrophil # 8.72 X10^3/uL (2.7-7.7); Neutrophil % 74.4 % (47-70); Platelet Count 252 K/mm3 (150-450); RBC Distribution Width CV 13.5 % (11.6-14.6); Red Blood Count 3.55 M/mm3 (4.2-5.4); White Blood Count 11.7 K/mm3 (4.4-11.0)
[2022-01-19 12:57] LABS: Glucose Challenge Gest 1H 50g 204 mg/dL (70-140)
== END | disposition home or self-care (01) ==
PROVIDERS: Referring Provider Obstetrics & Gynecology; Visit Provider Obstetrics & Gynecology
DX: Z34.90 Encounter for supervision of normal pregnancy, unspecified, unspecified trimester (principal)
CPT/HCPCS: 36415; 82950; 85025

== ENCOUNTER 2022-02-01 21:29 | Outpatient (CLI) | payer OTHER, SELFPAY ==
[2022-02-01 21:46] VITALS: TEMP 37.2; O2SAT 97
[2022-02-01 21:47] VITALS: BP 124/62; PULSE 86
[2022-02-01 21:55] VITALS: BMI 36.9
--- NOTE | 2022-02-02 20:08 | OB.TRI.PN ---
Progress Notes Date of Service: 02/01/22 Progress Note: Patient presents for triage evaluation secondary to dec fm FHT: 130 Moderate variability reactive no decelerations category I tracing [place]: no regular Contractions Assessment and plan: dec fm Reactive NST, reassuring maternal and status patient discharged to home to follow-up as scheduled. See problem list details for additional plan information. Charges/Coding Procedures Urinary/Genital [id number]: 58228-60 non-stress test Interp
== END 2022-02-01 22:35 | disposition home or self-care (01) ==
LOC: WPOUT 21:36 → WP 21:37
PROVIDERS: Visit Provider Obstetrics & Gynecology
DX: O36.8190 Decreased fetal movements, unspecified trimester, not applicable or unspecified (principal); Z3A.00 Weeks of gestation of pregnancy not specified
CPT/HCPCS: 59025; 59050; 99218; G0378

== ENCOUNTER 2022-02-18 20:40 | Outpatient (CLI) | payer OTHER, SELFPAY ==
[2022-02-18 21:13] VITALS: BMI 36.5
[2022-02-18 21:18] VITALS: BP 122/61; PULSE 86
--- NOTE | 2022-02-18 21:26 | OB.TRI.HP_ITS ---
HPI - General HPI Narrative LESLY RAMSEY, is a 26 F who presents Maternal Data Information NADEGE Calculator Estimated Delivery Date Method Current WG Current Estimate 04/19/22 LMP (Certain) 31w 3d Other Estimates 04/25/22 Ultrasound #1 30w 4d PFSH PFSH Medical History Anxiety Anxiety Complete Ear discomfort Otitis externa of right ear PTSD (post-traumatic stress disorder) Supervision of normal Home Medications docosahexaenoic acid 200 mg capsule ( DHA) 200 mg PO DAILY 08/24/21 [History Last Taken 01/31/22 22:00] ondansetron 4 mg disintegrating tablet 4 mg PO Q8H PRN nausea and vomiting #90 tabs 10/18/21 [Rx Last Taken Unknown] betamethasone dipropionate 0.05 % topical cream 1 applic topical DAILY PRN itching #45 grams 12/16/21 [Rx Last Taken Unknown] fluoxetine 40 mg capsule (Prozac) 40 mg PO DAILY 01/19/22 [History Last Taken 02/18/22 10:00] blood sugar diagnostic (Accu-Chek Guide test strips) #100 ea 01/20/22 [Rx Last Taken Unknown] blood-glucose meter #1 ea 01/20/22 [Rx Last Taken Unknown] lancets #100 ea 01/20/22 [Rx Last Taken Unknown] hydroxyzine pamoate 25 mg capsule (Vistaril) 25 mg PO BID PRN anxiety 02/01/22 [History Last Taken 01/30/22 23:00] Allergy/AdvReac Type Severity Reaction Status Date / Time Penicillins [PCN] AdvReac Nausea/Vom/ Verified 02/18/22 21:16 Diarrhea Family History Mother Breast cancer, Onset Age: 47 Social History adopted: No household members: significant other housing: house current occupation: [employer] current occupational exposures/hazards: No pets and animals: Yes (Not managing the litter boxes) pets and animals: cat(s) history of recent travel: No Smoking Status: Never smoker Electronic Cigarette Use: with nicotine and not used alcohol intake: former details: social substance use type: does not use well-balanced diet: about half the time caffeine: Yes Type: carbonated beverages Number of servings: 1 and coffee Number of servings: 1 eating out: 1-3 times/week during the past year weight has: remained stable what type of physical activity do you participate in: none daniel/anabaptist: None seatbelt use: always do you feel safe at home: Yes additional social history: ALYSSA Reina Works at [employer] History 2 Elective abortions Hx Para 0 Spontaneous abortions 1 Hx # Term Pregnancies Ectopic pregnancies Hx # Pregnancies Multiple births # of living children 0 Visit Details Expected Delivery Route/Plan Labor Preferences- CB/BF classes: [] labor support person: [] labor intervention preferences: [] pain management options preferred: [] cut cord/dad catch: [] : [] PP control planned: [] discussed possible routes of delivery and associated risks: [] special requests: [] Plans Covid status: discussed Flu vaccine: discussed Tdap vaccine: [] Rhogam: n/a LARC form signed: [] Problem list reviewed and updated with the most current plan of care details and appropriate orders placed. Relevant counseling for the gestational age provided. Continue routine care and follow up unless otherwise noted in visit notes/problem list details OB Flowsheet Initial Weight: Not Recorded Date -?-?-?-?-?-?-?-?-?-?-?-?- EGA Weight BP Urine Prot -?-?-?-?-?-?-?-?-?-?-?-?- Glucose FHR FuHt Pres Dilation -?-?-?-?-?-?-?-?-?-?-?-?- Effaced St Visit Note 09/02/21 -?-?-?-?-?-?-?-?-?-?-?-?- 7w 2d 157 lb 2 oz 120/70 -?-?-?-?-?-?-?-?-?-?-?-?- 135 -?-?-?-?-?-?-?-?-?-?-?-?- SM- CRL NOT cons with LMP fu for New Ob 09/20/21 -?-?-?-?-?-?-?-?-?-?-?-?- 9w 6d 160 lb 102/64 -?-?-?-?-?-?-?-?-?-?-?-?- 168 -?-?-?-?--?-?-?-?-?-?-?-?- SM- CRL 2.35cm n ow cons with LMP, no vb cramping 10/18/21 -?-?-?-?-?-?-?-?-?-?-?-?- 13w 6d 164 lb 90/60 Negative -?-?-?-?-?-?-?-?-?-?-?-?- Negative 150 -?-?-?-?-?-?-?-?-?-?-?-?- SM- SM- no vb cramping SM- no vb cramping discussed anxiety recommend psych referral and increase prozac and vistaril 11/15/21 -?-?-?-?-?-?-?-?-?-?-?-?- 17w 6d 171 lb 2 oz 107/70 Nega tive -?-?-?-?-?-?-?-?-?-?-?-?- Negative 145 -?-?-?-?-?-?-?-?-?-?-?-?- LC- no vb. anato my scan ordered. breast itching, to try coconut oil and Benadryl for itching 12/16/21 -?-?-?-?-?-?-?-?-?-?-?-?- 22w 2d 181 lb 4 oz 114/66 Nega tive -?-?-?-?-?-?-?-?-?-?-?-?- Negative 134 23 -?-?-?-?-?-?-?-?-?-?-?-?- JV- no lof, vagi nal bleeding, or cramping. pt is upset a bout not getting us reports called to her (went to portal) she is worried about her pupps not getting better on vistaril. start claritin + steroid cream + vistaril. if no improvement to call. 01/10/22 -?-?-?-?-?-?-?-?-?-?-?-?- 25w 6d 185 lb 2 oz 136/76 Nega tive -?-?-?-?-?-?-?-?-?-?-?-?- Negative 138 25 -?-?-?-?-?-?-?-?-?-?-?-?- LC- no vb, ctx,l of. good fm. having increased vaginal d/c. BV/trich rapid performed. self treated for yeast x1 week ago. LC- no vb, ctx,lof. good fm. having increased vaginal d/c. BV/trich rapid performed. self treated for yeast x1 week ago. rash to arms/abdomen- cont with vistaril/bendryl steroid cream occ. 02/09/22 -?-?-?-?-?-?-?-?-?-?-?-?- 30w 1d 188 lb 2 oz 109/69 Nega tive -?-?-?-?-?-?-?-?-?-?-?-?- Negative 160 30 -?-?-?-?-?-?-?-?-?-?-?-?- JV- no lof, vagi nal bleeding, or dec fm. glucose levels are overall well controlled. will message us with her log next week. prefers doc only delivery. wants epidural. tdap today ROS Constitutional Constitutional: Reports systems reviewed and no addt'l complaints, except as documented Gastrointestinal Gastrointestinal: Denies bloating, constipation, cramping, diarrhea, nausea or vomiting Genitourinary Genitourinary: Reports other Details: Denies vaginal odor, vaginal bleeding, or vaginal discharge ; Denies difficulty urinating or flank pain Physical Exam Const alert, oriented x3 and no apparent distress HEENT normocephalic Resp normal respiratory effort and normal air movement no CVA tenderness Manual OB Exam: not dilated nor effaced and station -3 Uterus Palpation: other OB contractions noted every 2 minutes on the monitor ; Negative for uterus tender Extremity normal to inspection General Extremity: edema bilateral (trace ) NST FHR Rate Baby A Baseline: 130 Variability:: Moderate Accelerations:: 10 x 10 Decelerations:: None NST Reactive:: Yes FHR Category:: Category I Assessment & Plan (1) Threatened labor: (2) Gestational diabetes: (3) Vaginal discharge: COMMENT: negative bv/trich rapid test 01/10 (4) PUPP (pruritic urticarial papules and plaques of ): (5) Depression: COMMENT: treated with Prozac (6) Personal history of scoliosis: COMMENT: s curve in spine (7) Supervision of normal : QUALIFIERS: Trimester: second trimester COMMENT: , NADEGE 04/25/22, BF [place] DOC ONLY DELIVERY (8) : QUALIFIERS: Weeks of gestation: 25 weeks Qualified Code(s): Z3A.25 - 25 weeks gestation of COMMENT: discussed NIPT & Carrier testing (9) Threatened : (10) Otitis externa of right ear: (11) Family history of breast cancer in mother: COMMENT: estrogen positive/stage 4 mets, dec. Mother did not have genetic testing. Offer empower testing/declines. (12) Anxiety: PLAN: Plan plan to start iv fluids now, 1000mg of Tylenol and observe. if contractions do not stop with hydration and there is a need for tocolysis will need to consider transport, however since cerix is closed, if contractions slow down and space out will continue to monitor Charges/Coding Multi Select Codes Visit Charges Office Visit/Consults: 64923 OV L3 Est Urinary/Genital Urinary/Genital CPT Codes: 95097-01 non-stress test Interp
[2022-02-18] MEDS: Lactated Ringers 1,000 ML 999 ML IV ×2 (21:38→23:22)
[2022-02-18 21:50] VITALS: TEMP 37.7
[2022-02-18 22:04] LABS: Mucous, Urine 0 SEEN /hpf (<or=2+); Red Blood Cells-Urine 0 SEEN /hpf (0-5); Squamous Epithelial Cells - UA 0 SEEN /hpf (5-10); White Blood Cells 0 SEEN /hpf (0-5)
[2022-02-18] MEDS: Acetaminophen 500 MG Tablet 1000 MG PO (22:04)
[2022-02-18 22:05] LABS: Color, Urine Yellow (Yellow); Glucose, Dipstick Normal (Normal); Ketone-Dipstick 15 mg/dl (Negative); Leukocyte Esterase-Dipstick Negative /ul (Negative); Nitrite-Dipstick Negative (Negative); Occult Blood-Urine Negative /ul (Negative); Protein-Dipstick Negative (Negative); Urine Bilirubin Dipstick Negative (Negative); Urine Clarity Clear (Clear); Urine Urobilinogen Normal (Normal)
[2022-02-18 22:14] LABS: Bacteria RARE /hpf (None Seen)
[2022-02-18] MEDS: Betamethasone/Betamethasone 30 MG/5 ML Vial 12 MG IM (23:22)
[2022-02-18] MEDS: NIFEdipine 10 MG Capsule PO (23:58)
[2022-02-19] VITALS (8 sets, daily range): BP systolic 111; BP diastolic 61; PULSE 76–96; O2SAT 98–99
== END 2022-02-19 04:45 | disposition home or self-care (01) ==
LOC: WPOUT 20:51 → WP 20:51
PROVIDERS: Visit Provider Obstetrics & Gynecology
DX: O47.02 False labor before 37 completed weeks of gestation, second trimester (principal); O20.0 Threatened abortion; O26.86 Pruritic urticarial papules and plaques of pregnancy (PUPPP); O24.419 Gestational diabetes mellitus in pregnancy, unspecified control; O99.342 Other mental disorders complicating pregnancy, second trimester; F32.A Depression, unspecified; F41.9 Anxiety disorder, unspecified; O99.891 Other specified diseases and conditions complicating pregnancy; H60.91 Unspecified otitis externa, right ear; Z3A.25 25 weeks gestation of pregnancy
CPT/HCPCS: 96360; 96361; 59025; 59050; 81001; 87086; 87088; 96372; 99221; J7120; G0378; J0702

== ENCOUNTER 2022-02-19 22:06 | Outpatient (CLI) | payer OTHER, SELFPAY ==
[2022-02-19 22:14] VITALS: BMI 37.0
--- NOTE | 2022-02-19 22:17 | OB.TRI.HP_ITS ---
HPI - General HPI Narrative LESLY RAMSEY, is a 26 F who returns to L&D for a repeat dose of celestone and also having contractions agina. She is 31 weeks 4 days with her first baby and was in last night for threatened labor. She denies loss of fluid, vaginal bleeding, or dec fm. Maternal Data Information NADEGE Calculator Estimated Delivery Date Method Current WG Current Estimate 04/19/22 LMP (Certain) 31w 4d Other Estimates 04/25/22 Ultrasound #1 30w 5d PFSH PFSH Medical History Anxiety Anxiety Complete Ear discomfort Otitis externa of right ear PTSD (post-traumatic stress disorder) Supervision of normal Home Medications docosahexaenoic acid 200 mg capsule ( DHA) 200 mg PO DAILY 08/24/21 [History Last Taken 01/31/22 22:00] ondansetron 4 mg disintegrating tablet 4 mg PO Q8H PRN nausea and vomiting #90 tabs 10/18/21 [Rx Last Taken Unknown] betamethasone dipropionate 0.05 % topical cream 1 applic topical DAILY PRN itching #45 grams 12/16/21 [Rx Last Taken Unknown] fluoxetine 40 mg capsule (Prozac) 40 mg PO DAILY 01/19/22 [History Last Taken 02/18/22 10:00] blood sugar diagnostic (Accu-Chek Guide test strips) #100 ea 01/20/22 [Rx Last Taken Unknown] blood-glucose meter #1 ea 01/20/22 [Rx Last Taken Unknown] lancets #100 ea 01/20/22 [Rx Last Taken Unknown] hydroxyzine pamoate 25 mg capsule (Vistaril) 25 mg PO BID PRN anxiety 02/01/22 [History Last Taken 01/30/22 23:00] nifedipine 10 mg capsule 10 mg PO Q4H 10 days #60 caps 02/19/22 [Rx Last Taken Unknown] yaeewtkm-mcm-Oi-FA 1 mg tablet 1 tab PO DAILY 02/19/22 [History Last Taken 02/18/22 22:00] Allergy/AdvReac Type Severity Reaction Status Date / Time Penicillins [PCN] AdvReac Nausea/Vom/ Verified 02/19/22 22:19 Diarrhea Family History Mother Breast cancer, Onset Age: 47 Social History adopted: No household members: significant other housing: house current occupation: [employer] current occupational exposures/hazards: No pets and animals: Yes (Not managing the litter boxes) pets and animals: cat(s) history of recent travel: No Smoking Status: Never smoker Electronic Cigarette Use: with nicotine and not used alcohol intake: former details: social substance use type: does not use well-balanced diet: about half the time caffeine: Yes Type: carbonated beverages Number of servings: 1 and coffee Number of servings: 1 eating out: 1-3 times/week during the past year weight has: remained stable what type of physical activity do you participate in: none daniel/mu-ism: None seatbelt use: always do you feel safe at home: Yes additional social history: ALYSSA Reina Works at [employer] History 2 Elective abortions Hx Para 0 Spontaneous abortions 1 Hx # Term Pregnancies Ectopic pregnancies Hx # Pregnancies Multiple births # of living children 0 Visit Details Expected Delivery Route/Plan Labor Preferences- CB/BF classes: [] labor support person: [] labor intervention preferences: [] pain management options preferred: [] cut cord/dad catch: [] : [] PP control planned: [] discussed possible routes of delivery and associated risks: [] special requests: [] Plans Covid status: discussed Flu vaccine: discussed Tdap vaccine: [] Rhogam: n/a LARC form signed: [] Problem list reviewed and updated with the most current plan of care details and appropriate orders placed. Relevant counseling for the gestational age provided. Continue routine care and follow up unless otherwise noted in visit notes/problem list details OB Flowsheet Initial Weight: Not Recorded Date -?-?-?-?-?-?-?-?-?-?-?-?- EGA Weight BP Urine Prot -?-?-?-?-?-?-?-?-?-?-?-?- Glucose FHR FuHt Pres Dilation -?-?-?-?-?-?-?-?-?-?-?-?- Effaced St Visit Note 09/02/21 -?-?-?-?-?-?-?-?-?-?-?-?- 7w 2d 157 lb 2 oz 120/70 -?-?-?-?-?-?-?-?-?-?-?-?- 135 -?-?-?-?-?-?-?-?-?-?-?-?- SM- CRL NOT cons with LMP fu for New Ob 09/20/21 -?-?-?-?-?-?-?-?-?-?-?-?- 9w 6d 160 lb 102/64 -?-?-?-?-?-?-?-?-?-?-?-?- 168 -?-?-?-?-?-?-?-?-?-?-?-?- SM- CRL 2.35cm n ow cons with LMP, no vb cramping 10/18/21 -?-?-?-?-?-?-?-?-?-?-?-?- 13w 6d 164 lb 90/60 Negative -?-?-?-?-?--?-?-?-?-?-?-?- Negative 150 -?-?-?-?-?-?-?-?-?-?-?-?- SM- SM- no vb cramping SM- no vb cramping discussed anxiety recommend psych referral and increase p rozac and vistaril 11/15/21 -?-?-?-?-?-?-?-?-?-?-?-?- 17w 6d 171 lb 2 oz 107/70 Nega tive -?-?-?-?-?-?-?-?-?-?-?-?- Negative 145 -?-?-?-?-?-?--?-?-?-?-?-?- LC- no vb. anato my scan ordered. breast itching, to try coconut oil and Benadryl for itching 12/16/21 -?-?-?-?-?-?-?-?-?-?-?-?- 22w 2d 181 lb 4 oz 114/66 Nega tive -?-?-?-?-?-?-?-?-?-?-?-?- Negative 134 23 -?-?-?-?-?-?-?-?-?-?-?-?- JV- no lof, vagi nal bleeding, or cramping. pt is upset a bout not getting us reports called to her (went to portal) she is worried about her pupps not getting better on vistaril. start claritin + steroid cream + vistaril. if no improvement to call. 01/10/22 -?-?-?-?-?-?-?-?-?-?-?-?- 25w 6d 185 lb 2 oz 136/76 Nega tive -?-?-?-?-?-?-?-?-?-?-?-?- Negative 138 25 -?-?-?-?-?-?-?-?-?-?-?-?- LC- no vb, ctx,l of. good fm. having increased vaginal d/c. BV/trich rapid performed. self treated for yeast x1 week ago. LC- no vb, ctx,lof. good fm. having increased vaginal d/c. BV/trich rapid p erformed. self treated for yeast x1 week ago. rash to arms/abdomen- cont with vistaril/bendryl steroid cream occ. 02/09/22 -?-?-?-?-?-?-?-?-?-?-?-?- 30w 1d 188 lb 2 oz 109/69 Nega tive -?-?-?-?-?-?-?-?-?-?-?-?- Negative 160 30 -?-?-?-?-?-?-?-?-?-?-?-?- JV- no lof, vagi nal bleeding, or dec fm. glucose levels are overall well controlled. will message us with her log next week. prefers doc only delivery. wants epidural. tdap today ROS Constitutional Constitutional: Reports systems reviewed and no addt'l complaints, except as documented Gastrointestinal Gastrointestinal: Denies bloating, constipation, cramping, diarrhea, nausea or vomiting Genitourinary Genitourinary: Reports other Details: Denies vaginal odor, vaginal bleeding, or vaginal discharge ; Denies difficulty urinating or flank pain Physical Exam HEENT normocephalic Resp normal respiratory effort and normal air movement no CVA tenderness Narrative: cx is closed/thick/high Extremity normal to inspection General Extremity: edema bilateral (trace ) NST FHR Rate Baby A Baseline: 130-140 Variability:: Moderate Accelerations:: 15 x 15 and 10 x 10 Decelerations:: None NST Reactive:: Yes FHR Category:: Category I Uterine Activity:: irritability and mild contractions noted Assessment & Plan (1) Threatened labor: PLAN: plan to repeat dose of celestone tonight and give procardia for here and home if pain worsens or persists will keep her on l&D longer but if improves will dc to home (2) Gestational diabetes: (3) Vaginal discharge: COMMENT: negative bv/trich rapid test 01/10 (4) PUPP (pruritic urticarial papules and plaques of ): (5) Depression: COMMENT: treated with Prozac (6) Personal history of scoliosis: COMMENT: s curve in spine (7) Supervision of normal : QUALIFIERS: Trimester: second trimester COMMENT: , NADEGE 04/25/22, BF [place] DOC ONLY DELIVERY (8) : QUALIFIERS: Weeks of gestation: 25 weeks Qualified Code(s): Z3A.25 - 25 weeks gestation of COMMENT: discussed NIPT & Carrier testing (9) Threatened : (10) Otitis externa of right ear: (11) Family history of breast cancer in mother: COMMENT: estrogen positive/stage 4 mets, dec. Mother did not have genetic testing. Offer empower testing/declines. (12) Anxiety: (13) Ear discomfort: Charges/Coding Multi Select Codes Visit Charges Office Visit/Consults: 82553 OV L3 Est Urinary/Genital Urinary/Genital CPT Codes: 17271-69 non-stress test Interp
[2022-02-19 22:39] VITALS: TEMP 37.3; O2SAT 97
[2022-02-19 22:40] VITALS: BP 113/67; PULSE 86
[2022-02-19] MEDS: Betamethasone/Betamethasone 30 MG/5 ML Vial 12 MG IM (23:06)
[2022-02-19] MEDS: NIFEdipine 10 MG Capsule PO (23:06)
== END 2022-02-20 01:20 | disposition home or self-care (01) ==
LOC: WPOUT 22:11 → WP 22:13
PROVIDERS: Visit Provider Obstetrics & Gynecology
DX: O47.03 False labor before 37 completed weeks of gestation, third trimester (principal); Z3A.31 31 weeks gestation of pregnancy; O24.419 Gestational diabetes mellitus in pregnancy, unspecified control; O26.86 Pruritic urticarial papules and plaques of pregnancy (PUPPP); O99.343 Other mental disorders complicating pregnancy, third trimester; F32.A Depression, unspecified; F41.9 Anxiety disorder, unspecified
CPT/HCPCS: 59025; 59050; 96372; 99221; G0378; J0702

== ENCOUNTER 2022-03-01 17:48 | Outpatient (CLI) | payer OTHER, SELFPAY ==
[2022-03-01 17:53] VITALS: BMI 36.1
[2022-03-01 18:02] VITALS: TEMP 36.6; O2SAT 97
[2022-03-01 18:03] VITALS: BP 119/69; PULSE 106
[2022-03-01 18:04] VITALS: PULSE 105; O2SAT 98
--- NOTE | 2022-03-01 18:15 | OB.TRI.HP_ITS ---
HPI - General HPI Narrative LESLY RAMSEY, is a 26 F who presents for possible rupture of membranes at home within the hour. She denies painful contractions, bleeding, or decreased movement and feels that the leaking stopped Maternal Data Information NADEGE Calculator Estimated Delivery Date Method Current WG Current Estimate 04/19/22 LMP (Certain) 33w 1d Other Estimates 04/25/22 Ultrasound #1 32w 2d PFSH PFSH Medical History Anxiety Anxiety Complete Ear discomfort Otitis externa of right ear PTSD (post-traumatic stress disorder) Supervision of normal Home Medications docosahexaenoic acid 200 mg capsule ( DHA) 200 mg PO DAILY 08/24/21 [History Last Taken 02/28/22 23:00] ondansetron 4 mg disintegrating tablet 4 mg PO Q8H PRN nausea and vomiting #90 tabs 10/18/21 [Rx Last Taken Unknown] fluoxetine 40 mg capsule (Prozac) 40 mg PO DAILY anxiety/depression 01/19/22 [History Last Taken 02/27/22 10:00] blood sugar diagnostic (Accu-Chek Guide test strips) #100 ea 01/20/22 [Rx Last Taken Unknown] blood-glucose meter #1 ea 01/20/22 [Rx Last Taken Unknown] lancets #100 ea 01/20/22 [Rx Last Taken Unknown] hydroxyzine pamoate 25 mg capsule (Vistaril) 25 mg PO PRN PRN anxiety 02/01/22 [History Last Taken 02/09/22 10:00] bmjhccid-gxj-Ux-FA 1 mg tablet 1 tab PO DAILY 02/19/22 [History Last Taken 02/28/22 23:00] buspirone 15 mg tablet 15 mg PO TID PRN anxiety #30 tabs 02/24/22 [Rx Last Taken Unknown] nifedipine 10 mg capsule 10 mg PO PRN PRN labor 03/01/22 [History Last Taken 02/24/22 08:00] Allergy/AdvReac Type Severity Reaction Status Date / Time Penicillins [PCN] AdvReac Nausea/Vom/ Verified 03/01/22 18:28 Diarrhea Family History Mother Breast cancer, Onset Age: 47 Social History adopted: No household members: significant other housing: house current occupation: [employer] current occupational exposures/hazards: No pets and animals: Yes (Not managing the litter boxes) pets and animals: cat(s) history of recent travel: No Smoking Status: Never smoker Electronic Cigarette Use: with nicotine and not used alcohol intake: former details: social substance use type: does not use well-balanced diet: about half the time caffeine: Yes Type: carbonated beverages Number of servings: 1 and coffee Number of servings: 1 eating out: 1-3 times/week during the past year weight has: remained stable what type of physical activity do you participate in: none daniel/muslim: None seatbelt use: always do you feel safe at home: Yes additional social history: ALYSSA Reina Works at [employer] History 2 Elective abortions Hx Para 0 Spontaneous abortions 1 Hx # Term Pregnancies Ectopic pregnancies Hx # Pregnancies Multiple births # of living children 0 Visit Details Expected Delivery Route/Plan Labor Preferences- CB/BF classes: [] labor support person: [] labor intervention preferences: [] pain management options preferred: [] cut cord/dad catch: [] : [] PP control planned: [] discussed possible routes of delivery and associated risks: [] special requests: [] Plans Covid status: discussed Flu vaccine: discussed Tdap vaccine: [] Rhogam: n/a LARC form signed: [] Problem list reviewed and updated with the most current plan of care details and appropriate orders placed. Relevant counseling for the gestational age provided. Continue routine care and follow up unless otherwise noted in visit notes/problem list details OB Flowsheet Initial Weight: Not Recorded Date -?-?-?-?-?-?-?-?-?-?-?-?- EGA Weight BP Urine Prot -?-?-?-?-?-?-?-?-?-?-?-?- Glucose FHR FuHt Pres Dilation -?-?-?-?-?-?-?-?-?-?-?-?- Effaced St Visit Note 09/02/21 -?-?-?-?-?-?-?-?-?-?-?-?- 7w 2d 157 lb 2 oz 120/70 -?-?-?-?-?-?-?-?-?-?-?-?- 135 -?-?-?-?-?-?-?-?-?-?-?-?- SM- CRL NOT cons with LMP fu for New Ob 09/20/21 -?-?-?-?-?-?-?-?-?-?-?-?- 9w 6d 160 lb 102/64 -?-?-?-?-?-?-?-?-?-?-?-?- 168 -?-?-?-?-?-?-?-?-?-?-?-?- SM- CRL 2.35cm n ow cons with LMP, no vb cramping 10/18/21 -?-?-?-?-?-?-?-?-?-?-?-?- 13w 6d 164 lb 90/60 Negative -?-?-?-?-?-?-?-?-?-?-?-?- Negative 150 -?-?-?-?-?-?-?-?-?-?-?-?- SM- SM- no vb cramping SM- no vb cramping discussed anxiety recommend psych referral and increase prozac and vistaril 11/15/21 -?-?-?-?-?-?-?-?-?-?-?-?- 17w 6d 171 lb 2 oz 107/70 Nega tive -?-?-?-?-?-?-?-?-?-?-?-?- Negative 145 -?-?-?-?-?-?-?-?-?-?-?-?- LC- no vb. anato my scan ordered. breast itching, to try coconut oil and Benadryl for itching 12/16/21 -?-?-?-?-?-?-?-?-?-?-?-?- 22w 2d 181 lb 4 oz 114/66 Nega tive -?-?-?-?-?-?-?-?-?-?-?--?- Negative 134 23 -?-?-?-?-?-?-?-?-?-?-?-?- JV- no lof, vagi nal bleeding, or cramping. pt is upset a bout not getting us reports called to her (went to portal) she is worried about her pupps not getting better on vistaril. start claritin + steroid cream + vistaril. if no improvement to call. 01/10/22 -?-?-?-?-?-?-?-?-?-?-?-?- 25w 6d 185 lb 2 oz 136/76 Nega tive -?-?-?-?-?-?-?-?-?-?-?-?- Negative 138 25 -?-?-?-?-?-?-?-?-?-?-?-?- LC- no vb, ctx,l of. good fm. having increased vaginal d/c. BV/trich rapid performed. self treated for yeast x1 week ago. LC- no vb, ctx,lof. good fm. having increased vaginal d/c. BV/trich rapid performed. self treated for yeast x1 week ago. rash to arms/abdomen- cont with vistaril/bendryl steroid cream occ. 02/09/22 -?-?-?-?-?-?-?-?-?-?-?-?- 30w 1d 188 lb 2 oz 109/69 Nega tive -?-?-?-?-?-?-?-?-?-?-?-?- Negative 160 30 -?-?-?-?-?-?-?-?-?-?-?-?- JV- no lof, vagi nal bleeding, or dec fm. glucose levels are overall well controlled. will message us with her log next week. prefers doc only delivery. wants epidural. tdap today 02/24/22 -?-?-?-?-?-?-?-?-?-?-?-?- 32w 2d 184 lb 117/71 Negative -?-?-?-?-?-?-?-?-?-?-?-?- Negative 145 0 -?-?-?-?-?-?-?-?-?-?-?-?- 0 JV- gluc ose levels overall normal. some recommendations given on diet. JV- glucose levels are start ing to go up, some in 170's, 150's, and fasting over 100. will cosult to start insulin. pt is also status post 24 hr admit for threatened labor. she was given 2 doses of celestone and sent home with procardia every 4 hrs as needed for contractions. has been closed. ROS Constitutional Constitutional: Reports systems reviewed and no addt'l complaints, except as documented Gastrointestinal Gastrointestinal: Denies bloating, constipation, cramping, diarrhea, nausea or vomiting Genitourinary Genitourinary: Reports other Details: Denies vaginal odor, vaginal bleeding, or vaginal discharge ; Denies difficulty urinating or flank pain Physical Exam HEENT normocephalic Resp normal respiratory effort and normal air movement no CVA tenderness Speculum Exam - Cervix: other cervix closed, no pooling present. ROM + swab collected. Extremity normal to inspection General Extremity: edema bilateral (trace ) NST FHR Rate Baby A Baseline: 130 Variability:: Moderate Accelerations:: 15 x 15 Decelerations:: None NST Reactive:: Yes FHR Category:: Category I Assessment & Plan (1) Threatened labor: PLAN: Rom + is negative. pt reassured and we discussed warnings of PTL. dc to home (2) Gestational diabetes: (3) Vaginal discharge: COMMENT: negative bv/trich rapid test 01/10 (4) PUPP (pruritic urticarial papules and plaques of ): (5) Depression: COMMENT: treated with Prozac (6) Personal history of scoliosis: COMMENT: s curve in spine (7) Supervision of normal : QUALIFIERS: Trimester: second trimester COMMENT: , NADEGE 04/25/22, [facility] DOC ONLY DELIVERY (8) : QUALIFIERS: Weeks of gestation: 32 weeks Qualified Code(s): Z3A.32 - 32 weeks gestation of COMMENT: discussed NIPT & Carrier testing (9) Threatened : (10) Otitis externa of right ear: (11) Family history of breast cancer in mother: COMMENT: estrogen positive/stage 4 mets, dec. Mother did not have genetic testing. Offer empower testing/declines. (12) Anxiety: Charges/Coding Multi Select Codes Visit Charges Office Visit/Consults: 24360 OV L3 Est Urinary/Genital Urinary/Genital CPT Codes: 87222-18 non-stress test Interp
[2022-03-01 18:47] LABS: ROM Internal Control Test YES-OK TO RESULT pt. (Internal QC); ROM Patient Test Negative (Negative)
== END 2022-03-01 19:00 | disposition home or self-care (01) ==
LOC: WPOUT 17:49 → WP 17:51
PROVIDERS: Visit Provider Obstetrics & Gynecology
DX: O47.03 False labor before 37 completed weeks of gestation, third trimester (principal); O24.419 Gestational diabetes mellitus in pregnancy, unspecified control; O26.86 Pruritic urticarial papules and plaques of pregnancy (PUPPP); O99.343 Other mental disorders complicating pregnancy, third trimester; F43.10 Post-traumatic stress disorder, unspecified; F41.9 Anxiety disorder, unspecified; F32.A Depression, unspecified; Z3A.32 32 weeks gestation of pregnancy; Z79.899 Other long term (current) drug therapy
CPT/HCPCS: 59025; 59050; 84112; 99221; G0378

== ENCOUNTER 2022-03-02 11:00 | Outpatient (RCR) | payer OTHER, SELFPAY | END 2022-03-08 23:59 | LOC: DC 11:00 | PROVIDERS: Visit Provider Obstetrics & Gynecology | DX: O24.419 Gestational diabetes mellitus in pregnancy, unspecified control (principal) | CPT/HCPCS: 97802; 97803 ==

== ENCOUNTER 2022-03-09 00:28 | Outpatient (CLI) | payer OTHER, SELFPAY ==
[2022-03-09 00:39] VITALS: BMI 34.2
[2022-03-09 00:50] VITALS: BP 132/63; PULSE 91; TEMP 36.6; O2SAT 98
[2022-03-09 01:16] LABS: Mucous, Urine 0 SEEN /hpf (<or=2+); Red Blood Cells-Urine 0 SEEN /hpf (0-5)
[2022-03-09] MEDS: Acetaminophen 500 MG Tablet 1000 MG PO (01:16)
[2022-03-09 01:17] LABS: Color, Urine Yellow (Yellow); Glucose, Dipstick Normal (Normal); Ketone-Dipstick 15 mg/dl (Negative); Leukocyte Esterase-Dipstick 25 /ul (Negative); Nitrite-Dipstick Negative (Negative); Occult Blood-Urine Negative /ul (Negative); Protein-Dipstick 15 mg/dl (Negative); Specific Gravity, Urine 1.015 (1.002-1.030); Urine Bilirubin Dipstick Negative (Negative); Urine Clarity Sl. Cloudy (Clear); Urine Urobilinogen Normal (Normal)
[2022-03-09 01:26] LABS: White Blood Cells 0-5 SEEN /hpf (0-5)
[2022-03-09 01:27] LABS: Amorphous Sediment 1+; Bacteria 3+ /hpf (None Seen); Squamous Epithelial Cells - UA 5-10 SEEN /hpf (5-10)
[2022-03-09] MEDS: Lactated Ringers 1,000 ML 999 ML IV (01:40)
--- NOTE | 2022-03-09 23:51 | OB.TRI.HP_ITS ---
HPI - General General Date of Admission: 03/09/22 HPI Narrative LESLY RAMSEY, is a 26 y/o @ 34 weeks 0 days who presents to L&D with contractions. She was examined by the nursing staff initially and found to have a closed cervix. She has had multiple admissions this and has already received 2 doses of celestone. she is talking through contractions without difficulty. Maternal Data Information NADEGE Calculator Estimated Delivery Date Method Current WG Current Estimate 04/19/22 LMP (Certain) 35w 4d Other Estimates 04/25/22 Ultrasound #1 34w 5d PFSH PFS Medical History (Updated 03/17/22 @ 11:04 by Hailey Conteh) Anxiety Anxiety Complete Ear discomfort Family history of breast cancer in mother Otitis externa of right ear PTSD (post-traumatic stress disorder) Supervision of normal Home Medications docosahexaenoic acid 200 mg capsule ( DHA) 200 mg PO DAILY 08/24/21 [History Last Taken 03/08/22] ondansetron 4 mg disintegrating tablet 4 mg PO Q8H PRN nausea and vomiting #90 tabs 10/18/21 [Rx Last Taken 03/04/22] fluoxetine 40 mg capsule (Prozac) 40 mg PO DAILY anxiety/depression 01/19/22 [History Last Taken 03/09/22] blood-glucose meter #1 ea 01/20/22 [Rx Last Taken Unknown] lancets #100 ea 01/20/22 [Rx Last Taken Unknown] hydroxyzine pamoate 25 mg capsule (Vistaril) 25 mg PO PRN PRN anxiety 02/01/22 [History Last Taken 03/02/22] xkiwucdv-imu-Fz-FA 1 mg tablet 1 tab PO DAILY 02/19/22 [History Last Taken 03/08/22] buspirone 15 mg tablet 15 mg PO TID PRN anxiety #30 tabs 02/24/22 [Rx Last Taken Unknown] pen needle, diabetic 32 gauge x 5/32 (BD Ultra-Fine Tanya Pen Needle) #100 ea 03/11/22 [Rx Last Taken Unknown] insulin NPH isoph U-100 human 100 unit/mL (3 mL) subcutaneous pen (Humulin N NPH U-100 Insulin KwikPen) 4 unit subcut BID 03/17/22 [History Last Taken Unknown] Allergy/AdvReac Type Severity Reaction Status Date / Time Penicillins [PCN] AdvReac Nausea/Vom/ Verified 03/17/22 11:03 Diarrhea Family History Mother Breast cancer, Onset Age: 47 Social History adopted: No household members: significant other housing: house current occupation: [employer] current occupational exposures/hazards: No pets and animals: Yes (Not managing the litter boxes) pets and animals: cat(s) history of recent travel: No Smoking Status: Never smoker Electronic Cigarette Use: with nicotine and not used alcohol intake: former details: social substance use type: does not use well-balanced diet: about half the time caffeine: Yes Type: carbonated beverages Number of servings: 1 and coffee Number of servings: 1 eating out: 1-3 times/week during the past year weight has: remained stable what type of physical activity do you participate in: none daniel/nondenominational: None seatbelt use: always do you feel safe at home: Yes additional social history: ALYSSA Reina Works at [employer] History 2 Elective abortions Hx Para 0 Spontaneous abortions 1 Hx # Term Pregnancies Ectopic pregnancies Hx # Pregnancies Multiple births # of living children 0 Visit Details Expected Delivery Route/Plan Labor Preferences- CB/BF classes: [] labor support person: [] labor intervention preferences: [] pain management options preferred: [] cut cord/dad catch: [] : [] PP control planned: [] discussed possible routes of delivery and associated risks: [] special requests: [] Plans Covid status: discussed Flu vaccine: discussed Tdap vaccine: [] Rhogam: n/a LARC form signed: [] Problem list reviewed and updated with the most current plan of care details and appropriate orders placed. Relevant counseling for the gestational age provided. Continue routine care and follow up unless otherwise noted in visit notes/problem list details OB Flowsheet Initial Weight: Not Recorded Date -?-?-?-?--?-?-?-?-?-?-?-?- EGA Weight BP Urine Prot -?-?-?-?-?-?-?-?-?-?-?-?- Glucose FHR FuHt Pres Dilation -?-?-?-?-?-?-?-?-?-?-?-?- Effaced St Visit Note 09/02/21 -?-?-?-?-?-?-?-?-?-?-?-?- 7w 2d 157 lb 2 oz 120/70 -?-?-?-?-?-?-?-?-?-?-?-?- 135 -?-?-?-?-?-?-?-?-?-?-?-?- SM- CRL NOT cons with LMP fu for New Ob 09/20/21 -?-?-?-?-?-?-?-?-?-?-?-?- 9w 6d 160 lb 102/64 -?-?-?-?-?-?-?-?-?-?-?-?- 168 -?-?-?-?-?-?-?-?-?-?-?-?- SM- CRL 2.35cm n ow cons with LMP, no vb cramping 10/18/21 -?-?-?-?-?-?-?-?-?-?-?-?- 13w 6d 164 lb 90/60 Negative -?-?-?-?-?-?-?-?-?-?-?-?- Negative 150 -?-?-?-?-?-?-?-?-?-?-?-?- SM- SM- no vb cramping SM- no vb cramping discussed anxiety recommend psych referral and increase prozac and vistaril 11/15/21 -?-?-?-?-?-?-?-?-?-?-?-?- 17w 6d 171 lb 2 oz 107/70 Nega tive -?-?-?-?-?-?-?-?-?-?-?-?- Negative 145 -?-?-?-?-?-?-?-?-?-?-?-?- LC- no vb. anato my scan ordered. breast itching, to try coconut oil and Benadryl for itching 12/16/21 -?-?-?-?-?-?-?-?-?-?-?-?- 22w 2d 181 lb 4 oz 114/66 Nega tive -?-?-?-?-?-?-?-?-?-?-?-?- Negative 134 23 -?-?-?-?-?-?-?-?-?-?-?-?- JV- no lof, vagi nal bleeding, or cramping. pt is upset a bout not getting us reports called to her (went to portal) she is worried about her pupps not getting better on vistaril. start claritin + steroid cream + vistaril. if no improvement to call. 01/10/22 -?-?-?-?-?-?-?-?-?-?-?-?- 25w 6d 185 lb 2 oz 136/76 Nega tive -?-?-?-?-?-?-?-?-?-?-?-?- Negative 138 25 -?-?-?-?-?-?-?-?-?-?-?-?- LC- no vb, ctx,l of. good fm. having increased vaginal d/c. BV/trich rapid performed. self treated for yeast x1 week ago. LC- no vb, ctx,lof. good fm. having increased vaginal d/c. BV/trich rapid performed. self treated for yeast x1 week ago. rash to arms/abdomen- cont with vistaril/bendryl steroid cream occ. 02/09/22 -?-?-?-?--?-?-?-?-?-?-?-?- 30w 1d 188 lb 2 oz 109/69 Nega tive -?-?-?-?-?-?-?-?-?-?-?-?- Negative 160 30 -?-?-?-?-?-?-?-?-?-?-?-?- JV- no lof, vagi nal bleeding, or dec fm. glucose levels are overall well controlled. will message us with her log next week. prefers doc only delivery. wants epidural. tdap today 02/24/22 -?-?-?-?-?-?-?-?-?-?-?-?- 32w 2d 184 lb 117/71 Negative -?-?-?-?-?-?-?-?-?-?-?-?- Negative 145 0 -?-?-?-?-?-?-?-?-?-?-?-?- 0 JV- gluc ose levels overall normal. some recommendations given on diet. JV- glucose levels are start ing to go up, some in 170's, 150's, and fasting over 100. will cosult to start insulin. pt is also status post 24 hr admit for threatened labor. she was given 2 doses of celestone and sent home with procardia every 4 hrs as needed for contractions. has been closed. 03/11/22 -?-?-?-?-?-?-?-?-?-?-?-?- 34w 3d 187 lb 111/73 Negative -?-?-?-?-?-?-?-?-?-?-?-?- Negative 150 34 -?-?-?-?-?-?-?-?-?-?-?-?- JV- pt is going to see today and likely start insulin plan for twice weekly nsts. 03/14/22 -?-?-?-?-?-?-?-?-?-?-?-?- 34w 6d 187 lb 4 oz 110/77 Nega tive -?-?-?-?-?-?-?-?-?-?-?-?- Negative 140 -?-?-?-?-?-?-?-?-?-?-?-?- SM- no vb lof go od fm no regular ctx better glucose control with insulin. 03/17/22 -?-?-?-?-?-?-?-?-?-?-?-?- 35w 2d 187 lb 2 oz 111/70 -?-?-?-?-?-?-?-?-?-?-?-?- 150 35 -?-?-?-?-?-?-?-?-?-?-?-?- JV- reactive NST , insulin increased again today to 11 and 8 units. ROS Constitutional Constitutional: Reports systems reviewed and no addt'l complaints, except as documented Gastrointestinal Gastrointestinal: Denies bloating, constipation, cramping, diarrhea, nausea or vomiting Genitourinary Genitourinary: Reports other Details: Denies vaginal odor, vaginal bleeding, or vaginal discharge ; Denies difficulty urinating or flank pain NST FHR Rate Baby A Baseline: 150 Variability:: Moderate Accelerations:: 15 x 15 Decelerations:: None NST Reactive:: Yes FHR Category:: Category I Uterine Activity:: contractions palpating mild every 1-4 min Assessment & Plan (1) Gestational diabetes: COMMENT: seeing 03/11/22, insulin controlled. 2x weekly nsts growth q 4 and plan delivery at 39 (2) PUPP (pruritic urticarial papules and plaques of ): COMMENT: supportive care (3) Depression: COMMENT: treated with Prozac (4) Personal history of scoliosis: COMMENT: s curve in spine (5) Supervision of normal : QUALIFIERS: Trimester: second trimester COMMENT: PRR , NADEGE 04/25/22, [facility] DOC ONLY DELIVERY (6) : QUALIFIERS: Weeks of gestation: 35 weeks Qualified Code(s): Z3A.35 - 35 weeks gestation of COMMENT: discussed NIPT & Carrier testing (7) Anxiety: PLAN: Plan IV hydration given, possible UTI on urine. sending off for culture and starting abx. dc to home Charges/Coding Multi Select Codes Urinary/Genital Urinary/Genital CPT Codes: 70015-10 non-stress test Interp
== END 2022-03-09 02:55 | disposition home or self-care (01) ==
LOC: WPOUT 00:34 → WP 00:35
PROVIDERS: Visit Provider Obstetrics & Gynecology
DX: O24.414 Gestational diabetes mellitus in pregnancy, insulin controlled (principal); O26.86 Pruritic urticarial papules and plaques of pregnancy (PUPPP); O99.344 Other mental disorders complicating childbirth; F32.A Depression, unspecified; F41.9 Anxiety disorder, unspecified; Z3A.35 35 weeks gestation of pregnancy; Z79.899 Other long term (current) drug therapy
CPT/HCPCS: 96360; 59025; 59050; 81001; 99221; J7120; G0378

== ENCOUNTER → 2022-03-21 | Outpatient (CLI) | payer OTHER, SELFPAY | END | disposition home or self-care (01) | LOC: LABSPEC 13:35 | PROVIDERS: Referring Provider Registered Nurse; Visit Provider Registered Nurse | DX: O24.419 Gestational diabetes mellitus in pregnancy, unspecified control (principal) | CPT/HCPCS: 87081 ==

== ENCOUNTER → 2022-03-28 | Outpatient (CLI) | payer OTHER, SELFPAY ==
--- NOTE | 2022-03-28 14:51 | US_ITS ---
STUDY: SECOND AND THIRD TRIMESTER OBSTETRICAL ULTRASOUND - LIMITED REASON FOR EXAM: Female, 26 years old growth LMP: 07/13/2021. PRIOR ULTRASOUND: Comparison is made with prior study 11/29/2021. TECHNIQUE: Transabdominal TECHNICAL QUALITY: Adequate. FINDINGS: There is a single intrauterine fetus. The fetus is in a cephalic presentation. There is demonstrated cardiac activity with a heart rate of 132 bpm. There is a normal amniotic fluid volume. The largest amniotic fluid pocket measures 4.82 cm. The amniotic fluid index (SCOTT) is 7.24 cm. The placenta is anterior in location and is not low lying. There are Grade 2 placental changes. The cervical length was not measured due to positioning. BIOMETRY: BPD: 8.89 cm: 36 weeks, 0 days HC: 32.26 cm: 37 weeks, 3 days AC: 33.52 cm: 37 weeks, 3 days FL: 6.8 cm: 34 weeks, 6 days Age by LMP: 36 weeks, 6 days. NADEGE by LMP: 04/19/2022. age by prior US: 36 weeks, 5 days. NADEGE by prior US: 04/20/2022. age by current US: 36 weeks, 1 days. NADEGE by current US: 04/24/2022. Estimated weight: 2993 grams, +/- 449 grams, 50 percentile. US/OB Limited With Biometrics IMPRESSION: Single live uterine gestation with a mean gestational age of 36 weeks and 5 days. The measurements obtained today following within the normal expected range. Electronically Signed: Chano Rodriguez MD at 12:57 EST ,
== END | disposition home or self-care (01) ==
LOC: US 14:49
PROVIDERS: Referring Provider Registered Nurse; Visit Provider Registered Nurse
DX: O24.419 Gestational diabetes mellitus in pregnancy, unspecified control (principal)
CPT/HCPCS: 76816

== ENCOUNTER 2022-04-05 16:45 | Outpatient (CLI) | payer OTHER, SELFPAY ==
[2022-04-05 16:57] VITALS: TEMP 36.2
[2022-04-05 16:58] VITALS: BP 125/66; PULSE 96
[2022-04-05 17:10] VITALS: BMI 37.3
--- NOTE | 2022-04-05 21:40 | OB.TRI.NOTE ---
HPI - General General Date of Admission: 04/05/22 HPI Narrative LESLY RAMSEY, is a 26 y/o @ 38 weeks 0 days who presents to L&D with irregular contractions and unsure if in labor. Maternal Data Information NADEGE Calculator Estimated Delivery Date Method Current WG Current Estimate 04/19/22 LMP (Certain) 38w 3d Other Estimates 04/25/22 Ultrasound #1 37w 4d PFSH PFSH Medical History Anxiety Anxiety Complete Ear discomfort Family history of breast cancer in mother Otitis externa of right ear PTSD (post-traumatic stress disorder) Supervision of normal Home Medications docosahexaenoic acid 200 mg capsule ( DHA) 200 mg PO DAILY 08/24/21 [History Last Taken 04/04/22 22:00 200 mg] ondansetron 4 mg disintegrating tablet 4 mg PO Q8H PRN nausea and vomiting #90 tabs 10/18/21 [Rx Last Taken 03/04/22] fluoxetine 40 mg capsule (Prozac) 40 mg PO DAILY anxiety/depression 01/19/22 [History Last Taken 04/07/22 10:00 40 mg] blood-glucose meter #1 ea 01/20/22 [Rx Last Taken Unknown] lancets #100 ea 01/20/22 [Rx Last Taken Unknown] hydroxyzine pamoate 25 mg capsule (Vistaril) 25 mg PO PRN PRN anxiety 02/01/22 [History Last Taken 03/02/22] mnmylpam-ppx-Uo-FA 1 mg tablet 1 tab PO DAILY 02/19/22 [History Last Taken 04/06/22 22:00] buspirone 15 mg tablet 15 mg PO TID PRN anxiety #30 tabs 02/24/22 [Rx Last Taken Unknown] pen needle, diabetic 32 gauge x 5/32 (BD Ultra-Fine Tanya Pen Needle) #100 ea 03/11/22 [Rx Last Taken Unknown] insulin NPH isoph U-100 human 100 unit/mL (3 mL) subcutaneous pen (Humulin N NPH U-100 Insulin KwikPen) See Rx Instructions subcut BID 03/31/22 [History Last Taken 04/07/22 22:00] Allergy/AdvReac Type Severity Reaction Status Date / Time Penicillins [PCN] AdvReac Nausea/Vom/ Verified 04/07/22 23:19 Diarrhea Family History Mother Breast cancer, Onset Age: 47 Social History adopted: No household members: significant other housing: house current occupation: [employer] current occupational exposures/hazards: No pets and animals: Yes (Not managing the litter boxes) pets and animals: cat(s) history of recent travel: No Smoking Status: Former smoker Electronic Cigarette Use: with nicotine and not used alcohol intake: former details: social substance use type: does not use well-balanced diet: about half the time caffeine: Yes Type: carbonated beverages Number of servings: 1 and coffee Number of servings: 1 eating out: 1-3 times/week during the past year weight has: remained stable what type of physical activity do you participate in: none daniel/taoist: None seatbelt use: always do you feel safe at home: Yes additional social history: ALYSSA Reina Works at [employer] History 2 Elective abortions Hx Para 0 Spontaneous abortions 1 Hx # Term Pregnancies Ectopic pregnancies Hx # Pregnancies Multiple births # of living children 0 Visit Details Expected Delivery Route/Plan Labor Preferences- CB/BF classes: enc labor support person: Lai labor intervention preferences: pain management options preferred: [] cut cord/dad catch: [] : [] PP control planned: [] discussed possible routes of delivery and associated risks: [] special requests: [] Plans Covid status: discussed Flu vaccine: discussed Tdap vaccine: [] Rhogam: n/a LARC form signed: completed Problem list reviewed and updated with the most current plan of care details and appropriate orders placed. Relevant counseling for the gestational age provided. Continue routine care and follow up unless otherwise noted in visit notes/problem list details OB Flowsheet Initial Weight: Not Recorded Date <del>?</del> EGA Weight BP Urine Prot <del>?</del> Glucose FHR FuHt Pres Dilation <del>?</del> Effaced St Visit Note 09/02/21 <del>?</del> 7w 2d 157 lb 2 oz 120/70 <del>?</del> 135 <del>?</del> SM- CRL NOT cons with LMP fu for New Ob 09/20/21 <del>?</del> 9w 6d 160 lb 102/64 <del>?</del> 168 <del>?</del> SM- CRL 2.35cm now cons with LMP, no vb cramping 10/18/21 <del>?</del> 13w 6d 164 lb 90/60 Negative <del>?</del> Negative 150 <del>?</del> SM- SM- no vb cramping SM- no vb cramping discussed anxiety recommend psych referral and increase prozac and vistaril 11/15/21 <del>?</del> 17w 6d 171 lb 2 oz 107/70 Negative <del>?</del> Negative 145 <del>?</del> LC- no vb. anatomy scan ordered. breast itching, to try coconut oil and Benadryl for itching 12/16/21 <del>?</del> 22w 2d 181 lb 4 oz 114/66 Negative <del>?</del> Negative 134 23 <del>?</del> JV- no lof, vaginal bleeding, or cramping. pt is upset a bout not getting us reports called to her (went to [facility]) she is worried about her pupps not getting better on vistaril. start claritin + steroid cream + vistaril. if no improvement to call. 01/10/22 <del>?</del> 25w 6d 185 lb 2 oz 136/76 Negative <del>?</del> Negative 138 25 <del>?</del> LC- no vb, ctx,lof. good fm. having increased vaginal d/c. BV/trich rapid performed. self treated for yeast x1 week ago. LC- no vb, ctx,lof. good fm. having increased vaginal d/c. BV/trich rapid performed. self treated for yeast x1 week ago. rash to arms/abdomen- cont with vistaril/bendryl steroid cream occ. 02/09/22 <del>?</del> 30w 1d 188 lb 2 oz 109/69 Negative <del>?</del> Negative 160 30 <del>?</del> JV- no lof, vaginal bleeding, or dec fm. glucose levels are overall well controlled. will message us with her log next week. prefers doc only delivery. wants epidural. tdap today 02/24/22 <del>?</del> 32w 2d 184 lb 117/71 Negative <del>?</del> Negative 145 0 <del>?</del> 0 JV- glucose levels overall normal. some recommendations given on diet. JV- glucose levels are starting to go up, some in 170's, 150's, and fasting over 100. will cosult to start insulin. pt is also status post 24 hr admit for threatened labor. she was given 2 doses of celestone and sent home with procardia every 4 hrs as needed for contractions. has been closed. 03/11/22 <del>?</del> 34w 3d 187 lb 111/73 Negative <del>?</del> Negative 150 34 <del>?</del> JV- pt is going to see today and likely start insulin plan for twice weekly nsts. 03/14/22 <del>?</del> 34w 6d 187 lb 4 oz 110/77 Negative <del>?</del> Negative 140 <del>?</del> SM- no vb lof good fm no regular ctx better glucose control with insulin. 03/17/22 <del>?</del> 35w 2d 187 lb 2 oz 111/70 <del>?</del> 150 35 <del>?</del> JV- reactive NST, insulin increased again today to 11 and 8 units. 03/21/22 <del>?</del> 35w 6d 188 lb 113/74 Negative <del>?</del> Negative 155 36 0 <del>?</del> 0 LC- reactive NST. insulin increased to 16in AM and 10u in PM. GBS obtained today. 03/24/22 <del>?</del> 36w 2d 189 lb 2 oz 116/71 Negative <del>?</del> Negative 150 37 <del>?</del> JV- glucose levels stable. NST reactive. 03/28/22 <del>?</del> 36w 6d 190 lb 118/78 Negative <del>?</del> Negative 140 <del>?</del> MH-No VB. Good FM.Glucose stable. NST reactive. 03/31/22 <del>?</del> 37w 2d 190 lb 112/74 Negative <del>?</del> Negative 140 38 1.5 <del>?</del> 70 -2 JV- nst reactive. glucose levels stable. plan for 39 week IOL. plan for pit + stokes. 04/12/22 04/04/22 <del>?</del> 37w 6d 190 lb 6 oz 110/74 Negative <del>?</del> Negative 145 2 <del>?</del> 80 -2 LC- reactive NST. stable glucose on 18u in AM and 14u in PM of NPH. 04/07/22 <del>?</del> 38w 2d 189 lb 2 oz 118/79 Trace <del>?</del> Negative 140 39 2.5 <del>?</del> 70 -2 JV- nst reactive today but after was given water. No complaints other than wants to be delivered soon has IOL set up for monday. ROS Constitutional Constitutional: Reports systems reviewed and no addt'l complaints, except as documented Gastrointestinal Gastrointestinal: Denies bloating, constipation, cramping, diarrhea, nausea or vomiting Genitourinary Genitourinary: Reports other Details: Denies vaginal odor, vaginal bleeding, or vaginal discharge ; Denies difficulty urinating or flank pain NST FHR Rate Baby A Baseline: 140 Variability:: Moderate Accelerations:: 15 x 15 Decelerations:: None NST Reactive:: Yes FHR Category:: Category I Assessment & Plan (1) Gestational diabetes: COMMENT: seeing 03/11/22, insulin controlled. 2x weekly nsts growth q 4 and plan delivery at 39 Growth at 36 weeks-50% (2) PUPP (pruritic urticarial papules and plaques of ): COMMENT: supportive care (3) Depression: COMMENT: treated with Prozac (4) Personal history of scoliosis: COMMENT: s curve in spine (5) Supervision of normal : QUALIFIERS: Trimester: second trimester COMMENT: PRR , NADEGE 04/25/22, BF Nuno DOC ONLY DELIVERY (6) : QUALIFIERS: Weeks of gestation: 38 weeks Qualified Code(s): Z3A.38 - 38 weeks gestation of COMMENT: GBS Negative, discussed NIPT & Carrier testing (7) Anxiety: (8) False labor after 37 completed weeks of gestation: PLAN: Plan cx did not make change after 2 hours of monitoring. dc patient to home Charges/Coding Multi Select Codes Urinary/Genital Urinary/Genital CPT Codes: 09463-88 non-stress test Interp
--- NOTE | 2022-04-08 07:40 | OB.TRI.HP_ITS ---
HPI - General General Date of Admission: 04/05/22 HPI Narrative LESLY RAMSEY, is a 26 y/o @ 38 weeks 0 days who presents to L&D with irregular contractions and unsure if in labor. Maternal Data Information NADEGE Calculator Estimated Delivery Date Method Current WG Current Estimate 04/19/22 LMP (Certain) 38w 3d Other Estimates 04/25/22 Ultrasound #1 37w 4d PFSH PFSH Medical History Anxiety Anxiety Complete Ear discomfort Family history of breast cancer in mother Otitis externa of right ear PTSD (post-traumatic stress disorder) Supervision of normal Home Medications docosahexaenoic acid 200 mg capsule ( DHA) 200 mg PO DAILY 08/24/21 [History Last Taken 04/04/22 22:00 200 mg] ondansetron 4 mg disintegrating tablet 4 mg PO Q8H PRN nausea and vomiting #90 tabs 10/18/21 [Rx Last Taken 03/04/22] fluoxetine 40 mg capsule (Prozac) 40 mg PO DAILY anxiety/depression 01/19/22 [History Last Taken 04/07/22 10:00 40 mg] blood-glucose meter #1 ea 01/20/22 [Rx Last Taken Unknown] lancets #100 ea 01/20/22 [Rx Last Taken Unknown] hydroxyzine pamoate 25 mg capsule (Vistaril) 25 mg PO PRN PRN anxiety 02/01/22 [History Last Taken 03/02/22] boscgqbl-yte-Ok-FA 1 mg tablet 1 tab PO DAILY 02/19/22 [History Last Taken 04/06/22 22:00] buspirone 15 mg tablet 15 mg PO TID PRN anxiety #30 tabs 02/24/22 [Rx Last Taken Unknown] pen needle, diabetic 32 gauge x 5/32 (BD Ultra-Fine Tanya Pen Needle) #100 ea 03/11/22 [Rx Last Taken Unknown] insulin NPH isoph U-100 human 100 unit/mL (3 mL) subcutaneous pen (Humulin N NPH U-100 Insulin KwikPen) See Rx Instructions subcut BID 03/31/22 [History Last Taken 04/07/22 22:00] Allergy/AdvReac Type Severity Reaction Status Date / Time Penicillins [PCN] AdvReac Nausea/Vom/ Verified 04/07/22 23:19 Diarrhea Family History Mother Breast cancer, Onset Age: 47 Social History adopted: No household members: significant other housing: house current occupation: [employer] current occupational exposures/hazards: No pets and animals: Yes (Not managing the litter boxes) pets and animals: cat(s) history of recent travel: No Smoking Status: Former smoker Electronic Cigarette Use: with nicotine and not used alcohol intake: former details: social substance use type: does not use well-balanced diet: about half the time caffeine: Yes Type: carbonated beverages Number of servings: 1 and coffee Number of servings: 1 eating out: 1-3 times/week during the past year weight has: remained stable what type of physical activity do you participate in: none daniel/voodoo: None seatbelt use: always do you feel safe at home: Yes additional social history: ALYSSA Reina Works at [employer] History 2 Elective abortions Hx Para 0 Spontaneous abortions 1 Hx # Term Pregnancies Ectopic pregnancies Hx # Pregnancies Multiple births # of living children 0 Visit Details Expected Delivery Route/Plan Labor Preferences- CB/BF classes: enc labor support person: Lai labor intervention preferences: pain management options preferred: [] cut cord/dad catch: [] : [] PP control planned: [] discussed possible routes of delivery and associated risks: [] special requests: [] Plans Covid status: discussed Flu vaccine: discussed Tdap vaccine: [] Rhogam: n/a LARC form signed: completed Problem list reviewed and updated with the most current plan of care details and appropriate orders placed. Relevant counseling for the gestational age provided. Continue routine care and follow up unless otherwise noted in visit notes/problem list details OB Flowsheet Initial Weight: Not Recorded Date -?-?-?-?-?-?-?-?-?-?-?-?- EGA Weight BP Urine Prot -?-?-?-?-?-?-?-?-?-?-?-?- Glucose FHR FuHt Pres Dilation -?-?-?-?-?-?-?-?-?-?-?-?- Effaced St Visit Note 09/02/21 -?-?-?-?-?-?-?-?-?-?-?-?- 7w 2d 157 lb 2 oz 120/70 -?-?-?-?-?-?-?-?-?-?-?-?- 135 -?-?-?-?-?-?-?-?-?-?-?-?- SM- CRL NOT cons with LMP fu for New Ob 09/20/21 -?--?-?-?-?-?-?-?-?-?-?-?- 9w 6d 160 lb 102/64 -?-?-?-?-?-?-?-?-?-?-?-?- 168 -?-?-?-?-?-?-?-?-?-?-?-?- SM- CRL 2.35cm n ow cons with LMP, no vb cramping 10/18/21 -?-?-?-?-?-?-?-?-?-?-?-?- 13w 6d 164 lb 90/60 Negative -?-?-?-?-?-?-?-?-?-?-?-?- Negative 150 -?-?-?-?-?-?-?-?-?-?-?-?- SM- SM- no vb cramping SM- no vb cramping discussed anxiety recommend psych referral and increase prozac and vistaril 11/15/21 -?-?-?-?-?-?-?-?-?-?-?-?- 17w 6d 171 lb 2 oz 107/70 Nega tive -?-?-?-?-?-?-?-?-?-?-?-?- Negative 145 -?-?-?-?-?-?-?-?-?-?-?-?- LC- no vb. anato my scan ordered. breast itching, to try coconut oil and Benadryl for itching 12/16/21 -?-?-?-?-?-?-?-?-?-?-?-?- 22w 2d 181 lb 4 oz 114/66 Nega tive -?-?-?-?-?-?-?-?-?-?-?-?- Negative 134 23 -?-?-?-?-?-?-?-?-?-?-?-?- JV- no lof, vagi nal bleeding, or cramping. pt is upset a bout not getting us reports called to her (went to portal) she is worried about her pupps not getting better on vistaril. start claritin + steroid cream + vistaril. if no improvement to call. 01/10/22 -?-?-?-?-?-?-?-?-?-?-?-?- 25w 6d 185 lb 2 oz 136/76 Nega tive -?-?-?-?-?-?-?-?-?-?-?-?- Negative 138 25 -?-?-?-?-?-?-?-?-?-?-?-?- LC- no vb, ctx,l of. good fm. having increased vaginal d/c. BV/trich rapid performed. self treated for yeast x1 week ago. LC- no vb, ctx,lof. good fm. having increased vaginal d/c. BV/trich rapid performed. self treated for yeast x1 week ago. rash to arms/abdomen- cont with vistaril/bendryl steroid cream occ. 02/09/22 -?-?-?-?-?-?-?-?-?-?-?-?- 30w 1d 188 lb 2 oz 109/69 Nega tive -?-?-?-?-?-?-?-?-?-?-?-?- Negative 160 30 -?-?-?-?-?-?-?-?-?-?-?-?- JV- no lof, vagi nal bleeding, or dec fm. glucose levels are overall well controlled. will message us with her log next week. prefers doc only delivery. wants epidural. tdap today 02/24/22 -?-?-?-?-?-?-?-?-?-?-?-?- 32w 2d 184 lb 117/71 Negative -?-?-?-?-?-?-?-?-?-?-?-?- Negative 145 0 -?-?-?-?-?--?-?-?-?-?-?-?- 0 JV- gluc ose levels overall normal. some recommendations given on diet. JV- glucose levels are start ing to go up, some in 170's, 150's, and fasting over 100. will cosult to start insulin. pt is also status post 24 hr admit for threatened labor. she was given 2 doses of celestone and sent home with procardia every 4 hrs as needed for contractions. has been closed. 03/11/22 -?-?-?-?-?-?-?-?-?-?-?-?- 34w 3d 187 lb 111/73 Negative -?-?-?-?-?-?-?-?-?-?-?-?- Negative 150 34 -?-?-?-?-?-?-?-?-?-?--?-?- JV- pt is going to see today and likely start insulin plan for twice weekly nsts. 03/14/22 -?-?-?-?-?-?-?-?-?-?-?-?- 34w 6d 187 lb 4 oz 110/77 Nega tive -?-?-?-?-?-?-?-?-?-?-?-?- Negative 140 -?-?-?-?-?-?-?-?-?-?-?-?- SM- no vb lof go od fm no regular ctx better glucose control with insulin. 03/17/22 -?-?-?-?-?-?-?-?-?-?-?-?- 35w 2d 187 lb 2 oz 111/70 -?-?-?-?-?-?-?-?-?-?-?-?- 150 35 -?-?-?-?-?-?-?-?-?-?-?-?- JV- reactive NST , insulin increased again today to 11 and 8 units. 03/21/22 -?-?-?-?-?-?-?-?-?-?-?-?- 35w 6d 188 lb 113/74 Negative -?-?-?-?-?-?-?-?-?-?-?-?- Negative 155 36 0 -?-?-?-?-?-?-?-?-?-?-?-?- 0 LC- reac tive NST. insulin increased to 16in AM and 10u in PM. GBS obtained today. 03/24/22 -?-?-?-?-?-?-?-?-?-?-?-?- 36w 2d 189 lb 2 oz 116/71 Nega tive -?-?-?-?-?-?-?-?-?-?-?-?- Negative 150 37 -?-?-?-?-?-?-?-?-?-?-?-?- JV- glucose leve ls stable. NST reactive. 03/28/22 -?-?-?-?-?-?-?-?-?-?-?-?- 36w 6d 190 lb 118/78 Negative -?-?-?-?-?-?-?-?-?-?-?-?- Negative 140 -?-?-?-?-?-?-?-?-?-?-?-?- MH-No VB. Good F M.Glucose stable. NST reactive. 03/31/22 -?-?-?-?-?-?-?-?-?-?-?-?- 37w 2d 190 lb 112/74 Negative -?-?-?-?-?-?-?-?-?-?-?-?- Negative 140 38 1.5 -?-?-?-?-?-?-?-?-?-?-?-?- 70 -2 JV- nst re active. glucose levels stable. plan for 39 week IOL. plan for pit + stokes. 04/12/22 04/04/22 -?-?-?-?-?-?-?-?-?-?-?-?- 37w 6d 190 lb 6 oz 110/74 Nega tive -?-?-?-?-?-?-?-?-?-?-?-?- Negative 145 2 -?-?-?-?-?-?-?-?-?-?-?-?- 80 -2 LC- reacti ve NST. stable glucose on 18u in AM and 14u in PM of NPH. 04/07/22 -?-?-?-?-?-?-?-?-?-?-?-?- 38w 2d 189 lb 2 oz 118/79 Trac e -?-?-?-?-?-?-?-?-?-?-?-?- Negative 140 39 2.5 -?-?-?-?-?-?-?-?-?-?-?-?- 70 -2 JV- nst re active today but after was given water. No complaints other than wants to be delivered soon has IOL set up for monday. ROS Constitutional Constitutional: Reports systems reviewed and no addt'l complaints, except as documented Gastrointestinal Gastrointestinal: Denies bloating, constipation, cramping, diarrhea, nausea or vomiting Genitourinary Genitourinary: Reports other Details: Denies vaginal odor, vaginal bleeding, or vaginal discharge ; Denies difficulty urinating or flank pain NST FHR Rate Baby A Baseline: 140 Variability:: Moderate Accelerations:: 15 x 15 Decelerations:: None NST Reactive:: Yes FHR Category:: Category I Assessment & Plan (1) Gestational diabetes: COMMENT: seeing 03/11/22, insulin controlled. 2x weekly nsts growth q 4 and plan delivery at 39 Growth at 36 weeks-50% (2) PUPP (pruritic urticarial papules and plaques of ): COMMENT: supportive care (3) Depression: COMMENT: treated with Prozac (4) Personal history of scoliosis: COMMENT: s curve in spine (5) Supervision of normal : QUALIFIERS: Trimester: second trimester COMMENT: PRR , NADEGE 04/25/22, BF Nuno DOC ONLY DELIVERY (6) : QUALIFIERS: Weeks of gestation: 38 weeks Qualified Code(s): Z3A.38 - 38 weeks gestation of COMMENT: GBS Negative, discussed NIPT & Carrier testing (7) Anxiety: (8) False labor after 37 completed weeks of gestation: PLAN: Plan cx did not make change after 2 hours of monitoring. dc patient to home Charges/Coding Multi Select Codes Urinary/Genital Urinary/Genital CPT Codes: 20094-21 non-stress test Interp
== END 2022-04-05 18:45 | disposition home or self-care (01) ==
LOC: WPOUT 16:50 → WP 16:50
PROVIDERS: Visit Provider Obstetrics & Gynecology
DX: O24.419 Gestational diabetes mellitus in pregnancy, unspecified control (principal); O99.343 Other mental disorders complicating pregnancy, third trimester; O47.1 False labor at or after 37 completed weeks of gestation; F43.10 Post-traumatic stress disorder, unspecified; F41.9 Anxiety disorder, unspecified; F32.9 Major depressive disorder, single episode, unspecified; Z3A.38 38 weeks gestation of pregnancy; Z79.899 Other long term (current) drug therapy
CPT/HCPCS: 59025; 59050; 99221; G0378

== ENCOUNTER 2022-04-07 23:35 | Inpatient (IN) | payer OTHER, SELFPAY ==
[2022-04-07 23:02] VITALS: BP 131/80; PULSE 96
[2022-04-07 23:13] VITALS: TEMP 36.5
[2022-04-07 23:33] VITALS: BMI 38.1
[2022-04-07 23:48] LABS: ROM Internal Control Test YES-OK TO RESULT pt. (Internal QC); ROM Patient Test Negative (Negative)
[2022-04-08] VITALS (75 sets, daily range): BP systolic 96–145; BP diastolic 54–84; PULSE 64–122; RESP 14–18; TEMP 36.3–37.1; O2SAT 94–100
--- NOTE | 2022-04-08 | PLAC_PTH ---
PATIENT: LESLY RAMSEY LOC: WP U#:[id number] AGE/SX: 26/F ROOM: [facility] RE04/07/[address]: Dr. Priscilla Clarke DO : 1995 BED: 1 DIS: 04/10/2022 SPEC #: [id number] RECD: 04/08/22 14:11 STATUS: JODI BRIANA #: [id number] JOSÉ LUIS: 04/08/22 00:[address]: Priscilla Clarke DEPT: SURGICAL PATHOLOGY RECD BY: Vasyl Lopez ENTERED: 04/11/22 08:32 SP TYPE: PLACENTA PAUL DR: Gianna Primary Care Phys PALOMO Miranda Tissues: Placenta, NOS Procedures: Surgery Specimen Level V HEADER OPERATION: Primary section PRE-OP DIAGNOSIS: Labor TISSUE SUBMITTED: Placenta MICROSCOPIC DIAGNOSIS Knott placenta (600 gm): Umbilical cord ? trivascular with acute funisitis. Placental membranes ? acute chorioamnionitis and acute deciduitis. Placental disc ? acute vasculitis of superficial placental vessels, Norris-Kali change, intervillous congestion and mild chronic deciduitis. AM:richar 04/12/2022 MICROSCOPIC DESCRIPTION Slides are reviewed. GROSS DESCRIPTION SPECIMEN: PLACENTA / CLINICAL INFORMATION: A. Weight: 3.225 kg B. Gestational Age: 38 weeks C. Sex: Male PLACENTAL WEIGHT (POST FIXATION): 600 gm PLACENTAL DIMENSIONS: 19.0 x 17.0 x 3.0 cm PLACENTAL SHAPE: Usual ovoid PLACENTAL WEIGHT FOR GESTATIONAL AGE: Over 99th percentile MEMBRANES - Present A. Insertion: Marginal B. Site of rupture from edge: At edge of placental disc C. Color of membrane: Garcia-oconnell D. Abnormalities: None UMBILICAL CORD - Present A. Color: Garcia-oconnell B. Insertion: Near central insertion C. Length: 42.0 cm D. Diameter: 1.2 cm E. Number of vessels: Three F. Abnormalities: None PLACENTAL DISC - Present A. Color of surface: Garcia-oconnell B. surface abnormalities: None C. Maternal cotyledons: Intact with minimal tears D. Attached retro placental clot: No clot E. Cut surface: Dark red and spongy F. Lesions: None G. Separate clot: Absent SECTIONS SUBMITTED: 1. Umbilical cord ( end notched) 2. Umbilical cord, placental end 3. Membrane roll 4. Placental disc, and maternal surfaces 5. Placental disc, and maternal surfaces 6. Placental disc, and maternal surfaces AM:richar 04/11/2022 TC:2 CPT: 33533
[2022-04-08] MEDS: Lactated Ringers 1,000 ML 50 ML IV (00:06)
[2022-04-08] MEDS: LACTATED RINGERS 500 ML 999 ML IV ×2 (00:07→06:37)
[2022-04-08 00:10] LABS: Absolute Lymphocyte Count 1.66 X10^3/uL (0.83-4.51); Absolute Neutrophil Count 9.7 X10^3/uL (2.0-7.7); Basophil# 0.03 X10^3/uL; Basophil% 0.2 % (0-1); Eosinophil# 0.08 X10^3/uL; Eosinophils% 0.6 % (0-5); Hematocrit 37.7 % (37-47); Hemoglobin 12.4 g/dL (12.0-15.0); Lymphocyte # 1.66 X10^3/ul (0.83-4.51); Lymphocyte % 13.4 % (19-41); Mean Corp Hgb Conc 32.9 g/dL (32-36); Mean Corpuscular Hgb 29.7 pg (27.0-32.0); Mean Corpuscular Volume 90.2 fL (81-99); Mean Platelet Vol. 12.2 fl (6.2-12.0); Monocyte# 0.81 X10^3/uL; Monocyte% 6.6 % (0-10); NRBC Flagged by Analyzer 0 % (0-5); Neutrophil % 78.6 % (47-70); Platelet Count 206 K/mm3 (150-450); RBC Distribution Width CV 13.3 % (11.6-14.6); RBC Distribution Width SD 43.6 fl (35.1-43.9); Red Blood Count 4.18 M/mm3 (4.2-5.4); White Blood Count 12.4 K/mm3 (4.4-11.0)
[2022-04-08] MEDS: fentaNYL-bupivacaine (epidural) 100 ML BAG EPIDURAL ×3 (01:07→10:19)
--- NOTE | 2022-04-08 02:12 | HP.PCM.OB_ITS ---
HPI - General General Date of Admission: 04/07/22 HPI Narrative LESLY RAMSEY, is a 26 F who presents IAL regular ctx and 4-5 cm dilated Maternal Data Information NADEGE Calculator Estimated Delivery Date Method Current WG Current Estimate 04/19/22 LMP (Certain) 38w 3d Other Estimates 04/25/22 Ultrasound #1 37w 4d PFSH PFSH Medical History Anxiety Anxiety Complete Ear discomfort Family history of breast cancer in mother Otitis externa of right ear PTSD (post-traumatic stress disorder) Supervision of normal Home Medications docosahexaenoic acid 200 mg capsule ( DHA) 200 mg PO DAILY 08/24/21 [History Last Taken 04/04/22 22:00 200 mg] ondansetron 4 mg disintegrating tablet 4 mg PO Q8H PRN nausea and vomiting #90 tabs 10/18/21 [Rx Last Taken 03/04/22] fluoxetine 40 mg capsule (Prozac) 40 mg PO DAILY anxiety/depression 01/19/22 [History Last Taken 04/07/22 10:00 40 mg] blood-glucose meter #1 ea 01/20/22 [Rx Last Taken Unknown] lancets #100 ea 01/20/22 [Rx Last Taken Unknown] hydroxyzine pamoate 25 mg capsule (Vistaril) 25 mg PO PRN PRN anxiety 02/01/22 [History Last Taken 03/02/22] lrdevklf-cmf-Hc-FA 1 mg tablet 1 tab PO DAILY 02/19/22 [History Last Taken 04/06/22 22:00] buspirone 15 mg tablet 15 mg PO TID PRN anxiety #30 tabs 02/24/22 [Rx Last Taken Unknown] pen needle, diabetic 32 gauge x 5/32 (BD Ultra-Fine Tanya Pen Needle) #100 ea 03/11/22 [Rx Last Taken Unknown] insulin NPH isoph U-100 human 100 unit/mL (3 mL) subcutaneous pen (Humulin N NPH U-100 Insulin KwikPen) See Rx Instructions subcut BID 03/31/22 [History Last Taken 04/07/22 22:00] Allergy/AdvReac Type Severity Reaction Status Date / Time Penicillins [PCN] AdvReac Nausea/Vom/ Verified 04/07/22 23:19 Diarrhea Family History Mother Breast cancer, Onset Age: 47 Social History adopted: No household members: significant other housing: house current occupation: [employer] current occupational exposures/hazards: No pets and animals: Yes (Not managing the litter boxes) pets and animals: cat(s) history of recent travel: No Smoking Status: Former smoker Electronic Cigarette Use: with nicotine and not used alcohol intake: former details: social substance use type: does not use well-balanced diet: about half the time caffeine: Yes Type: carbonated beverages Number of servings: 1 and coffee Number of servings: 1 eating out: 1-3 times/week during the past year weight has: remained stable what type of physical activity do you participate in: none daniel/protestant: None seatbelt use: always do you feel safe at home: Yes additional social history: ALYSSA Reina Works at [employer] History 2 Elective abortions Hx Para 0 Spontaneous abortions 1 Hx # Term Pregnancies Ectopic pregnancies Hx # Pregnancies Multiple births # of living children 0 Visit Details Expected Delivery Route/Plan Labor Preferences- CB/BF classes: enc labor support person: Lai labor intervention preferences: pain management options preferred: [] cut cord/dad catch: [] : [] PP control planned: [] discussed possible routes of delivery and associated risks: [] special requests: [] Plans Covid status: discussed Flu vaccine: discussed Tdap vaccine: [] Rhogam: n/a LARC form signed: completed Problem list reviewed and updated with the most current plan of care details and appropriate orders placed. Relevant counseling for the gestational age provided. Continue routine care and follow up unless otherwise noted in visit notes/problem list details OB Flowsheet Initial Weight: Not Recorded Date -?-?-?-?-?-?-?-?-?-?-?-?- EGA Weight BP Urine Prot -?-?-?-?-?-?-?-?-?-?-?-?- Glucose FHR FuHt Pres Dilation -?-?-?-?-?-?-?-?-?-?-?-?- Effaced St Visit Note 09/02/21 -?-?-?-?-?-?-?-?-?-?-?-?- 7w 2d 157 lb 2 oz 120/70 -?-?-?-?-?-?-?-?-?--?-?-?- 135 -?-?-?-?-?-?-?-?-?-?-?-?- SM- CRL NOT cons with LMP fu for New Ob 09/20/21 -?-?-?-?-?-?-?-?-?-?-?-?- 9w 6d 160 lb 102/64 -?-?-?-?-?-?-?-?-?-?-?-?- 168 -?-?-?-?-?-?-?-?-?-?-?-?- SM- CRL 2.35cm n ow cons with LMP, no vb cramping 10/18/21 -?-?-?-?-?-?-?-?-?-?-?-?- 13w 6d 164 lb 90/60 Negative -?-?-?-?-?-?-?-?-?-?-?-?- Negative 150 -?-?-?-?-?-?-?-?-?-?-?-?- SM- SM- no vb cramping SM- no vb cramping discussed anxiety recommend psych referral and increase prozac and vistaril 11/15/21 -?-?-?-?-?-?-?-?-?-?-?-?- 17w 6d 171 lb 2 oz 107/70 Nega tive -?-?-?-?-?-?--?-?-?-?-?-?- Negative 145 -?-?-?-?-?-?-?-?-?-?-?-?- LC- no vb. anato my scan ordered. breast itching, to try coconut oil and Benadryl for itching 12/16/21 -?-?-?-?-?-?-?-?-?-?-?-?- 22w 2d 181 lb 4 oz 114/66 Nega tive -?-?-?-?-?-?-?-?-?-?-?-?- Negative 134 23 -?-?-?-?-?-?-?-?-?-?-?-?- JV- no lof, vagi nal bleeding, or cramping. pt is upset a bout not getting us reports called to her (went to portal) she is worried about her pupps not getting better on vistaril. start claritin + steroid cream + vistaril. if no improvement to call. 01/10/22 -?-?-?-?-?-?-?-?-?-?-?-?- 25w 6d 185 lb 2 oz 136/76 Nega tive -?-?-?-?-?-?-?-?-?-?-?-?- Negative 138 25 -?-?-?-?-?-?-?-?-?-?-?-?- LC- no vb, ctx,l of. good fm. having increased vaginal d/c. BV/trich rapid performed. self treated for yeast x1 week ago. LC- no vb, ctx,lof. good fm. having increased vaginal d/c. BV/trich rapid performed. self treated for yeast x1 week ago. rash to arms/abdomen- cont with vistaril/bendryl steroid cream occ. 02/09/22 -?-?-?-?-?-?-?-?-?-?-?-?- 30w 1d 188 lb 2 oz 109/69 Nega tive -?-?-?-?-?-?-?-?-?-?-?-?- Negative 160 30 -?-?-?-?-?-?-?-?-?-?-?-?- JV- no lof, vagi nal bleeding, or dec fm. glucose levels are overall well controlled. will message us with her log next week. prefers doc only delivery. wants epidural. tdap today 02/24/22 -?--?-?-?-?-?-?-?-?-?-?-?- 32w 2d 184 lb 117/71 Negative -?-?-?-?-?-?-?-?-?-?-?-?- Negative 145 0 -?-?-?-?-?-?-?-?-?-?-?-?- 0 JV- gluc ose levels overall normal. some recommendations given on diet. JV- glucose levels are start ing to go up, some in 170's, 150's, and fasting over 100. will cosult to start insulin. pt is also status post 24 hr admit for threatened labor. she was given 2 doses of celestone and sent home with procardia every 4 hrs as needed for contractions. has been closed. 03/11/22 -?-?-?-?-?-?-?--?-?-?-?-?- 34w 3d 187 lb 111/73 Negative -?-?-?-?-?-?-?-?-?-?-?-?- Negative 150 34 -?-?-?-?-?-?-?-?-?-?-?-?- JV- pt is going to see today and likely start insulin plan for twice weekly nsts. 03/14/22 -?-?-?-?-?-?-?-?-?-?-?-?- 34w 6d 187 lb 4 oz 110/77 Nega tive -?-?-?-?-?-?-?-?-?-?-?-?- Negative 140 -?-?-?-?-?-?-?-?-?-?-?-?- SM- no vb lof go od fm no regular ctx better glucose control with insulin. 03/17/22 -?-?-?-?-?-?-?-?-?-?-?-?- 35w 2d 187 lb 2 oz 111/70 -?-?-?-?-?-?-?-?-?-?-?-?- 150 35 -?-?-?-?-?-?-?-?-?-?-?-?- JV- reactive NST , insulin increased again today to 11 and 8 units. 03/21/22 -?-?-?-?-?-?-?-?-?-?-?-?- 35w 6d 188 lb 113/74 Negative -?-?-?-?-?-?-?-?-?-?-?-?- Negative 155 36 0 -?-?-?-?-?-?-?-?-?-?-?--?- 0 LC- reac tive NST. insulin increased to 16in AM and 10u in PM. GBS obtained today. 03/24/22 -?-?-?-?-?-?-?-?-?-?-?-?- 36w 2d 189 lb 2 oz 116/71 Nega tive -?-?-?-?-?-?-?-?-?-?-?-?- Negative 150 37 -?-?-?-?-?-?-?-?-?-?-?-?- JV- glucose leve ls stable. NST reactive. 03/28/22 -?-?-?-?-?-?-?-?-?-?-?--?- 36w 6d 190 lb 118/78 Negative -?-?-?-?-?-?-?-?-?-?-?-?- Negative 140 -?-?-?-?-?-?-?-?-?-?-?-?- MH-No VB. Good F M.Glucose stable. NST reactive. 03/31/22 -?-?-?-?-?-?-?-?-?-?-?-?- 37w 2d 190 lb 112/74 Negative -?-?-?-?-?-?-?-?-?-?-?-?- Negative 140 38 1.5 -?-?-?-?-?-?--?-?-?-?-?-?- 70 -2 JV- nst re active. glucose levels stable. plan for 39 week IOL. plan for pit + stokes. 04/12/22 04/04/22 -?-?-?-?-?-?-?-?-?-?-?-?- 37w 6d 190 lb 6 oz 110/74 Nega tive -?-?-?-?-?-?-?-?-?-?-?-?- Negative 145 2 -?-?-?-?-?-?-?-?-?-?-?-?- 80 -2 LC- reacti ve NST. stable glucose on 18u in AM and 14u in PM of NPH. 04/07/22 -?-?-?-?-?-?-?-?-?-?-?-?- 38w 2d 189 lb 2 oz 118/79 Trac e -?-?-?-?-?-?-?-?-?-?-?-?- Negative 140 39 2.5 -?-?-?-?-?-?--?-?-?-?-?-?- 70 -2 JV- nst re active today but after was given water. No complaints other than wants to be delivered soon has IOL set up for monday. 04/07/22 -?-?-?-?-?-?-?-?--?-?-?-?- 38w 2d 195 lb 6.4 oz 131/80 139/79 145/84 133/73 126/70 123/64 117/60 118/59 107/56 112/59 107/62 122/63 115/57 110/54 123/67 116/57 117/56 112/55 131/72 126/69 -?-?-?-?-?-?-?-?-?-?-?-?- -?-?-?-?-?-?-?-?-?-?-?-?- NST FHR Rate Baby A Baseline: 140 Variability:: Moderate Accelerations:: 15 x 15 Decelerations:: None NST Reactive:: Yes FHR Category:: Category I Uterine Activity:: q3-5 ROS Constitutional Constitutional: Reports systems reviewed and no addt'l complaints, except as documented ENT HEENT: Reports systems reviewed and no addt'l complaints, except as documented Cardiovascular Cardiovascular: Reports systems reviewed and no addt'l complaints, except as documented Respiratory/Chest Respiratory/Chest: Reports systems reviewed and no addt'l complaints, except as documented Gastrointestinal Gastrointestinal: Reports systems reviewed and no addt'l complaints, except as documented and nausea; Denies abdominal pain Genitourinary Genitourinary: Reports systems reviewed and no addt'l complaints, except as documented, contractions Details: present and frequency (regular ) and movement Details: present Musculoskeletal Musculoskeletal: Reports systems reviewed and no addt'l complaints, except as documented Integumentary Integumentary: Reports as per HPI Neurologic Neurologic: Reports systems reviewed and no addt'l complaints, except as documented Endocrine Endocrinology: Reports systems reviewed and no addt'l complaints, except as documented Vital Signs Vital Signs Vital Signs: 04/07/22 23:02 04/07/22 23:02 04/07/22 23:13 Temperature Temperature Source Temporal Pulse Rate 96 Blood Pressure 131/80 H BP Systolic 131 BP Diastolic 80 Pulse Ox 04/07/22 23:13 04/08/22 00:43 04/08/22 00:43 Temperature 97.7 F L Temperature Source Pulse Rate 80 Blood Pressure BP Systolic BP Diastolic Pulse Ox 99 04/08/22 00:45 04/08/22 00:45 04/08/22 00:48 Temperature Temperature Source Pulse Rate 82 Blood Pressure 139/79 H 145/84 H BP Systolic 139 145 BP Diastolic 79 84 Pulse Ox 04/08/22 00:48 04/08/22 00:48 04/08/22 00:54 Temperature Temperature Source Pulse Rate 90 Blood Pressure 133/73 H BP Systolic 133 BP Diastolic 73 Pulse Ox 99 04/08/22 00:54 04/08/22 00:53 04/08/22 00:58 Temperature Temperature Source Pulse Rate 88 88 Blood Pressure BP Systolic BP Diastolic Pulse Ox 99 04/08/22 00:58 04/08/22 00:59 04/08/22 00:59 Temperature Temperature Source Pulse Rate 88 Blood Pressure 126/70 H BP Systolic 126 BP Diastolic 70 Pulse Ox 98 04/08/22 01:03 04/08/22 01:03 04/08/22 01:04 Temperature Temperature Source Pulse Rate 88 Blood Pressure 123/64 H BP Systolic 123 BP Diastolic 64 Pulse Ox 99 04/08/22 01:04 04/08/22 01:09 04/08/22 01:09 Temperature Temperature Source Pulse Rate 79 80 Blood Pressure 117/60 BP Systolic 117 BP Diastolic 60 Pulse Ox 04/08/22 01:10 04/08/22 01:10 04/08/22 01:08 Temperature Temperature Source Temporal Pulse Rate 92 Blood Pressure BP Systolic BP Diastolic Pulse Ox 97 04/08/22 01:13 04/08/22 01:13 04/08/22 01:08 Temperature 98.1 F Temperature Source Pulse Rate 86 Blood Pressure 118/59 L BP Systolic 118 BP Diastolic 59 Pulse Ox 04/08/22 01:15 04/08/22 01:15 04/08/22 01:18 Temperature Temperature Source Pulse Rate 83 Blood Pressure 107/56 L BP Systolic 107 BP Diastolic 56 Pulse Ox 97 04/08/22 01:18 04/08/22 01:20 04/08/22 01:20 Temperature Temperature Source Pulse Rate 78 79 Blood Pressure BP Systolic BP Diastolic Pulse Ox 98 04/08/22 01:23 04/08/22 01:23 04/08/22 01:25 Temperature Temperature Source Pulse Rate 89 76 Blood Pressure 112/59 L BP Systolic 112 BP Diastolic 59 Pulse Ox 04/08/22 01:25 04/08/22 01:29 04/08/22 01:29 Temperature Temperature Source Pulse Rate 75 Blood Pressure 107/62 BP Systolic 107 BP Diastolic 62 Pulse Ox 98 04/08/22 01:30 04/08/22 01:30 04/08/22 01:34 Temperature Temperature Source Pulse Rate 81 Blood Pressure 122/63 H BP Systolic 122 BP Diastolic 63 Pulse Ox 98 04/08/22 01:34 04/08/22 01:35 04/08/22 01:35 Temperature Temperature Source Pulse Rate 79 74 Blood Pressure BP Systolic BP Diastolic Pulse Ox 98 04/08/22 01:40 04/08/22 01:40 04/08/22 01:40 Temperature Temperature Source Pulse Rate 81 Blood Pressure 115/57 L BP Systolic 115 BP Diastolic 57 Pulse Ox 99 04/08/22 01:43 04/08/22 01:43 04/08/22 01:45 Temperature Temperature Source Pulse Rate 85 75 Blood Pressure 110/54 L BP Systolic 110 BP Diastolic 54 Pulse Ox 04/08/22 01:45 04/08/22 01:51 04/08/22 01:51 Temperature Temperature Source Pulse Rate 90 Blood Pressure 123/67 H BP Systolic 123 BP Diastolic 67 Pulse Ox 98 04/08/22 01:54 04/08/22 01:54 04/08/22 01:58 Temperature Temperature Source Pulse Rate 71 Blood Pressure 116/57 L 117/56 L BP Systolic 116 117 BP Diastolic 57 56 Pulse Ox 04/08/22 01:58 04/08/22 02:03 04/08/22 02:03 Temperature Temperature Source Pulse Rate 79 92 Blood Pressure 112/55 L BP Systolic 112 BP Diastolic 55 Pulse Ox 04/08/22 02:10 04/08/22 02:10 Temperature Temperature Source Pulse Rate 64 Blood Pressure 131/72 H BP Systolic 131 BP Diastolic 72 Pulse Ox Weight Weight: 195 lb 6.4 oz Body Mass Index (BMI) 38.1 Physical Exam Const alert, oriented x3 and healthy appearing Constitutional Narrative: uncomfortable with contractions HEENT normocephalic and moist oral mucous membranes Head and Scalp: atraumatic Neck full ROM, no lymphadenopathy, supple and thyroid normal General: trachea midline Thyroid: thyroid normal Lymph Lymphatic: no lymphadenopathy noted Chest inspection of chest normal Resp normal respiratory effort Cardio regular rate GI normal to inspection, nondistended, normoactive bowel sounds, soft to palpation and non-tender Inspection: gravid external exam normal Bimanual Exam - Vag & Uterus: uterus non-tender Manual OB Exam: estimated gestational size appropriate, presentation cephalic, dilated, effaced and station Extremity normal to inspection General Extremity: Negative for edema Skin no rashes or lesions noted Neuro deep tendon reflexes 2+ bilaterally Motor Exam: strength 5/5 throughout and clonus absent Psych mental status grossly normal Labs Labs Labs: Blood Type O POSITIVE Antibody Screen NEGATIVE Hct 37.7 % (37-47) Hgb 12.4 g/dL (12.0-15.0) Obstetrics US Syphilis Total Ab Non-reactive Rubella IgG Antibody Reactive (Nonreactive) Hep Bs Antigen Non-Reactive (Nonreactive) Chlamydia DNA ([facility]) Negative (Negative) Neisseria gonorrhoeae DNA ([facility]) Negative (Negative) HIV 1&2 Antibody Non-Reactive (Nonreactive) Glucose 1 Hr 50 gm 204 mg/dL (70-140) H Assessment & Plan (1) Anxiety: (2) : QUALIFIERS: Weeks of gestation: 38 weeks Qualified Code(s): Z3A.38 - 38 weeks gestation of COMMENT: GBS Negative, discussed NIPT & Carrier testing (3) Supervision of normal : QUALIFIERS: Trimester: second trimester COMMENT: PRR , NADEGE 04/25/22, BF Nuno DOC ONLY DELIVERY (4) Personal history of scoliosis: COMMENT: s curve in spine (5) Depression: COMMENT: treated with Prozac (6) PUPP (pruritic urticarial papules and plaques of ): COMMENT: supportive care (7) Gestational diabetes: COMMENT: seeing 03/11/22, insulin controlled. 2x weekly nsts growth q 4 and plan delivery at 39 Growth at 36 weeks-50% (8) Active labor at term: PLAN: Plan Patient presents IAL, plan expectant management for , pitocin/AROM PRN if needed. Pain management: plans epidural. GBS neg. Management of any complications: check BS per protocol I have reviewed the PFSH and made any clinically relevant updates.
[2022-04-08 02:21] LABS: Bedside Glucose 84 mg/dL (74-106)
[2022-04-08 02:21] LABS: Bedside Glucose 92 mg/dL (74-106)
[2022-04-08 03:19] LABS: Syphilis Antibodies Non-reactive
[2022-04-08] MEDS: Lactated Ringers 1,000 ML 200 ML IV ×2 (04:24→09:39)
[2022-04-08 04:31] LABS: Bedside Glucose 75 mg/dL (74-106)
[2022-04-08 04:31] LABS: Bedside Glucose 77 mg/dL (74-106)
[2022-04-08 05:36] LABS: Bedside Glucose 83 mg/dL (74-106)
--- NOTE | 2022-04-08 07:17 | PN_ITS ---
Progress Note pt is in hands/knees position due to 6 min prolonged deceleration. heart rate is back up to baseline 150. pt is tearful but denies pain. She has an epidural running. Report from nurses is that membranes ruptured spontaneously and there was meconium stained fluid present. current tracing: FHT: currently baseline is 150 with minimal variability, cat 2 tracing [place]: q2 min Contractions cx: 5-6 cm swelling present. moderate blood present. IUPC placed and bloody fluid returned through the tube. FSE placed without difficulty. A/P: SROM and spontaneous labor gdm plan for fluid bolus and close observation to watch for heart rate to normalize and recover after prolonged. if persistent cat 2 or worse tracing and no progress with cervix, worsening bleeding, etc. may need to proceed with section. At the time both patient and fetus are stable
[2022-04-08 07:31] LABS: Bedside Glucose 99 mg/dL (74-106)
[2022-04-08 07:31] LABS: Bedside Glucose 67 mg/dL (74-106)
[2022-04-08 08:05] LABS: Bedside Glucose 70 mg/dL (74-106)
[2022-04-08] MEDS: Ondansetron 4 MG/2 ML Vial IV (08:28)
[2022-04-08 09:11] LABS: Bedside Glucose 91 mg/dL (74-106)
[2022-04-08] MEDS: Oxytocin 15 Units/NS 250ml 15 UNITS/250 ML IV.SOLN 2 UNITS IV (09:42)
[2022-04-08 09:56] LABS: Bedside Glucose 83 mg/dL (74-106)
[2022-04-08 11:06] LABS: Bedside Glucose 71 mg/dL (74-106)
[2022-04-08] MEDS: Acetaminophen 500 MG Tablet PO (11:21)
[2022-04-08 11:50] LABS: Bedside Glucose 71 mg/dL (74-106)
[2022-04-08] MEDS: Sodium Citrate/Citric Acid 30 ML UDC PO (12:50)
--- NOTE | 2022-04-08 12:52 | PCM.PN.BLA ---
Progress Note pt has had 3 prolonged decels since 8:40 this am and minimal cervical change. She has persistent moderate vaginal bleeding with vaginal exams per the nurse. Pt remains comfortable with epidural. She is requesting a primary section at this time due to feeling nervous about the tracing. I also agree with the plan to proceed current tracing: FHT: 150 minimal variability intermittent accelerations and 3 prolonged decels since her last check with me this am. [place]: q2 min Contractions cx: 6-7/80/+1, anterior lip more swollen now A/P: mec fluid, decels and failure to progress in labor pt turned off and o2 applied recommend primary section now (JAYNE) 2 grams ancef ordered
[2022-04-08] MEDS: Cefazolin 2 GM in 0.9% Normal Saline 100 ML IV (13:19)
--- NOTE | 2022-04-08 13:48 | EX.PCM.OBRPT ---
Assessment & Plan (1) intolerance to labor, delivered, current hospitalization: (2) Gestational diabetes: COMMENT: seeing 03/11/22, insulin controlled. 2x weekly nsts growth q 4 and plan delivery at 39 Growth at 36 weeks-50% (3) PUPP (pruritic urticarial papules and plaques of ): COMMENT: supportive care (4) Depression: COMMENT: treated with Prozac (5) Personal history of scoliosis: COMMENT: s curve in spine (6) : QUALIFIERS: Weeks of gestation: 38 weeks Qualified Code(s): Z3A.38 - 38 weeks gestation of COMMENT: GBS Negative, discussed NIPT & Carrier testing (7) Anxiety: Maternal Data Information NADEGE Calculator Estimated Delivery Date Method Current WG Current Estimate 04/19/22 LMP (Certain) 38w 3d Other Estimates 04/25/22 Ultrasound #1 37w 4d Details Operative Information Date of Procedure: 04/08/22 Pre-Operative Diagnosis: 26 y/o @ 38 weeks 3 days, intolerance to labor, suspected placental abruption Post-Operative Diagnosis: 26 y/o @ 38 weeks 3 days, intolerance to labor, suspected placental abruption Classification: JAYNE Procedure Type: low transverse leasing associate #1: Luanne Rubio Type of Anesthesia: Spinal Anesthesiologist: David Rinaldi Antibiotic Given: Ancef 2 grams IV x1 Drain: Bains to straight drain Estimated Blood Loss: 600cc Findings Description of Procedure: The patient was brought to the OR for an JAYNE cearean section for persistent vaginal bleeding, minimal variability, and intermittent prolonged decelerations. During her vaginal prep, a piece of placenta tissue was noted, about a quarter size amount. Epidural anesthesia was found to be adequate. Bains catheter was in placed. The patient was placed in the dorsal supine position with leftward tilt. Patient was prepped and draped in the normal sterile fashion. Pfannenstiel skin incision was made with the scalpel and carried through to the underlying layer of fascia with the scalpel. Fascia was nicked in the midline and the incision extended laterally. The rectus bellies were dissected off superiorly and inferiorly with out complication both sharply and bluntly. The peritoneum was entered digitally. The incision was stretched and a low transverse uterine incision was made with the scalpel. The 's head was delivered atraumatically followed by the anterior and posterior shoulders without complication the rest of the delivered. The cord was clamped and cut and the infant was handed off to awaiting nurse. The placenta was delivered spontaneously immediately following and was noted to be intact and have a three-vessel cord. The uterus was exteriorized cleared of all clots and debris, and the incision was closed in a double layer closure using #1 Vicryl and #1 Monocryl. The ovaries and fallopian tubes were noted to be within normal limits. The uterus was returned to the maternal abdomen and gutters were cleared of all clots and debris. The peritoneum was closed with 3-0 Monocryl in a running fashion. Gloves were changed prior to fascial closure. Fascia was closed with 0 PDS in a running fashion. Subcutaneous tissue was copiously irrigated and the skin was closed with 3-0 Monocryl in a subcuticular fashion. Mepilex dressing was applied without complication. Patient was taken to recovery in stable condition. It was discussed with the patient that based on the clinical information obtained during this encounter, combined with her history, at this time I would recommend either or repeat section for future deliveries if further pregnancies are desired. Presentation: Positive for Vertex Amniotic Fluid Description: Moderate meconium Placental Delivery Description: Manual Removal Placenta Disposition: [facility] Percentage of Placenta Abruption: 10 Specimen(s) Sent to Pathology: placenta Cord Vessel Description: 3 Vessels Cord Entanglement: None Cord Gases: ABG and VBG A Gender: Male (1 minute): 4 (5 minute): 7 Delayed Cord Clamping: No Complications Risks of Surgery Discussed w/Patient: Bleeding, Anesthesia Risks, Infection, Need for Future C-Sections and Injury to surrounding structure(s) including bowel and bladder Multi Select Codes Urinary/Genital Urinary/Genital CPT Codes: 84082 Delivery [facility]
[2022-04-08 14:11] LABS: Pathology Specimen OB SEE PATHOLOGY REPORT
[2022-04-08] MEDS: Oxytocin 15 Units/NS 250ml 15 UNITS/250 ML IV.SOLN 83 UNITS IV (14:15)
[2022-04-08] MEDS: Ketorolac 30 MG/ML Syringe IV ×2 (14:16→20:22)
[2022-04-08 15:06] LABS: Bedside Glucose 77 mg/dL (74-106)
[2022-04-08 15:06] LABS: Bedside Glucose 95 mg/dL (74-106)
[2022-04-08] MEDS: Lactated Ringers 1,000 ML 100 ML IV (17:19)
[2022-04-08] MEDS: Acetaminophen 500 MG Tablet 1000 MG PO ×2 (17:45→23:53)
[2022-04-08] MEDS: Insulin NPH Human 100 UNITS/ML PEN 10 UNITS SC (17:46)
[2022-04-08 17:50] LABS: Bedside Glucose 104 mg/dL (74-106)
[2022-04-08] MEDS: HYDROmorphone 0.5 MG/0.5 ML SYRINGE IV (19:01)
[2022-04-08] MEDS: 0.9% Saline Lock 10 ML Syringe IV (20:50)
[2022-04-08 21:06] LABS: Bedside Glucose 113 mg/dL (74-106)
[2022-04-09] VITALS (11 sets, daily range): BP systolic 101–122; BP diastolic 56–65; PULSE 71–89; RESP 15–16; TEMP 36.2–36.6; O2SAT 96–100
[2022-04-09] MEDS: Ketorolac 30 MG/ML Syringe IV ×2 (02:40→08:47)
--- NOTE | 2022-04-09 03:57 | NURSING ---
Patient up and ambulated to bathroom with RN. Bains removed. Patient unable to void at this time.
[2022-04-09 05:20] LABS: Hematocrit 30.7 % (37-47); Hemoglobin 10.1 g/dL (12.0-15.0); Mean Corp Hgb Conc 32.9 g/dL (32-36); Mean Corpuscular Hgb 29.9 pg (27.0-32.0); Mean Corpuscular Volume 90.8 fL (81-99); Mean Platelet Vol. 11.9 fl (6.2-12.0); Platelet Count 158 K/mm3 (150-450); RBC Distribution Width CV 13.6 % (11.6-14.6); RBC Distribution Width SD 44.7 fl (35.1-43.9); Red Blood Count 3.38 M/mm3 (4.2-5.4); White Blood Count 19.7 K/mm3 (4.4-11.0)
[2022-04-09] MEDS: Acetaminophen 500 MG Tablet 1000 MG PO ×4 (06:31→23:56)
[2022-04-09 06:55] LABS: Bedside Glucose 65 mg/dL (74-106)
[2022-04-09] MEDS: 0.9% Saline Lock 10 ML Syringe IV (08:47)
[2022-04-09] MEDS: FLUoxetine 20 MG Capsule 40 MG PO (10:21)
[2022-04-09] MEDS: Senna/Docusate Sodium 1 Tablet PO (10:21)
--- NOTE | 2022-04-09 10:22 | PN.OBGYN_ITS ---
Subjective Subjective Patient is laying in bed comfortably without complaints. She states that she slept on an off during the night. Lochia is mild and pain is minimal. Objective Data Objective Data Vital Signs: Vital Signs Temp Pulse Resp BP Pulse Ox O2 Del Method 97.9 F 78 16 122/61 H 100 Room Air 04/09/22 08:41 04/09/22 08:41 04/09/22 08:41 04/09/22 08:41 04/09/22 08:41 04/09/22 08:41 Oxygen Delivery Method Room Air Weight: 195 lb 6.4 oz Body Mass Index (BMI) 38.1 Intake & Output: Intake and Output for Last 24 Hours 04/07/22 04/08/22 04/09/22 23:59 23:59 23:59 Intake Total 5069.33 / 5069.33 918.33 / 918.33 Output Total 1300 / 1300 1550 / 1550 Balance 3769.33 / 3769.33 -631.67 / -631.67 Lab / Micro Data Result Diagrams: 04/09/22 05:15 Labs: Laboratory Results - last 24 hr 04/08/22 10:41: POC Glucose 71 L 04/08/22 11:32: POC Glucose 71 L 04/08/22 12:49: POC Glucose 77 04/08/22 14:38: POC Glucose 95 04/08/22 17:25: POC Glucose 104 04/08/22 20:20: POC Glucose 113 H 04/09/22 05:15: WBC 19.7 H, RBC 3.38 L, Hgb 10.1 L, Hct 30.7 L, MCV 90.8, MCH 29 .9, MCHC 32.9, RDW Std Deviation 44.7 H, RDW Coeff of Caitlin 13.6, Plt Count 158, MPV 11.9 04/09/22 06:21: POC Glucose 65 L ROS Constitutional Constitutional: Reports systems reviewed and no addt'l complaints, except as documented Cardiovascular Cardiovascular: Denies chest pain, dizziness, dyspnea or irregular heart rhythm Respiratory/Chest Respiratory/Chest: Denies cough, pain on inspiration or shortness of breath at rest Gastrointestinal Gastrointestinal: Denies abdominal pain, nausea or vomiting Genitourinary Genitourinary: Denies burning urination Musculoskeletal Musculoskeletal: Denies muscle cramps, muscle spasms or muscle weakness Neurologic Neurologic: Denies confusion, dizziness, headache(s) or lack of coordination Psychiatric Psychiatric: Denies anxiety, behavioral changes or depression Physical Exam HEENT normocephalic Resp normal respiratory effort and normal air movement GI soft to palpation, non-tender and non-distended Rectal Exam: other Other Details: Incision is clean, dry, and intact no CVA tenderness Extremity normal to inspection General Extremity: edema bilateral (trace ) Assessment & Plan (1) Status post delivery: COMMENT: status post eron section for intolerance to labor, abruption- JV baby boy aurelia (2) Gestational diabetes: COMMENT: seeing 03/11/22, insulin controlled. 2x weekly nsts growth q 4 and plan delivery at 39 Growth at 36 weeks-50% PLAN: held am insulin. continue checking 2 hr pp levels PLAN: Plan s/p LTCS PPD # 1 1. routine post care 2. breast feeding- support given 3. rh positive 4. rubella immune
[2022-04-09 12:35] LABS: Bedside Glucose 101 mg/dL (74-106)
--- NOTE | 2022-04-09 12:35 | CASEMGMT ---
Social Work Assessment Labor and Delivery Unit Patient Address:[address] [place] [id number] Phone number: [phone] Date of Referral: 04/08/2022 Time of Referral:? 1501 Referred By: Paula Ballard Date of Intervention: ??04/09/22 Time of Intervention:? 12:35p Reason for Referral:? Mental Health History obtained from: medical records and mother of baby (RADHA) Anastasia Household composition: MOB reports she and her fianc? (FOB) live together in a home they own, no other children. Patient's parent/guardian status: MOB reports she and FOB have been together for five years and are currently engaged. MOB explained FOB is very involved, works implement mechanic at [employer] and will have two months off to be home with MOB and NB. MOB reports no concerns or history of mental health, DV or substance use for FOB. ?? Medical History: MOB reports receiving care with [facility] starting around 7 weeks. MOB is G/P 03/09 and does not plan to use control. NB is a boy, Bryson, weighing 7 pounds 10 oz, apgars 4,7,9 with planned medical front desk specialist Dr. Angeles. ? 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 Supplies:? MOB report they have ?more than enough? to care for NB including car seat, diapers and bassinet. MOB reports NB will be sleeping in bassinet in their bedroom and will eventually transition to a crib in his own room. Childcare/Caregiver(s):? MOB reports she and FOB are main care givers, however, they have additional support from family and friends as needed. Transportation:? MOB reports having access to transportation, no concerns. Programs/Agencies Involved: ??No agencies involved, MOB declined referrals at this time. ? Children Services/Legal Issues:?? None reported Behavioral Health Issues: ??Mental Health History: MOB reports diagnosis of depression and anxiety and is currently prescribed ProZac. MOB reports she was referred to Dr. Gómez for psychiatric services as she wants a new psychiatrist but plans to continue ProZac. MOB denies history of suicide or psychiatric hospitalizations and is not currently receiving counseling services.?? Substance Use History:? None reported Family/Social Stressors:? No stressors identified. Support Systems: MOB reports she is supported by FOB, their family and friends. Depression/Shaken Baby/Safe Sleeping: SW provided MOB with education regarding shaken baby, safe sleep and PPD/A. MOB reports NB will be sleeping in bassinet in their room but not in their bed. SW encouraged MOB to request support from FOB or other trusted adults if needed to avoid shaking the baby, MOB voiced understanding. MOB also voiced understanding regarding PPD. ASSESSMENT:? SW met with patient and patient?s sister to complete assessment. MOB in agreement for SW to complete assessment with her sister present. NB sleeping during assessment, MOB eating lunch. No concerns at this time, MOB does not want referrals to services and feels she has the support she needs. SW provided resources for mental health, information regarding PPD/A as well as shaken baby and safe sleep. PLAN:? d/c home when medically ready ?No other services requested or indicated. Sophia Mello LEAD JAVASCRIPT DEVELOPER, ANA
[2022-04-09] MEDS: Ibuprofen 600 MG Tablet PO ×2 (13:46→20:39)
--- NOTE | 2022-04-09 15:21 | NURSING ---
as of 1520 2 hour lunch postprandial deferred pt has not eaten lunch yet.
[2022-04-09] MEDS: oxyCODONE 5 MG Tablet PO (16:57)
[2022-04-09 18:30] LABS: Bedside Glucose 137 mg/dL (74-106)
[2022-04-09] MEDS: Insulin NPH Human 100 UNITS/ML PEN SC (19:00)
--- NOTE | 2022-04-09 21:31 | NURSING ---
On initial assessment, this patient had no IV and reports that IV was taken out by a previous nursing in the morning.
[2022-04-10] MEDS: Ibuprofen 600 MG Tablet PO ×2 (02:12→08:18)
[2022-04-10 02:14] VITALS: BP 127/69; PULSE 74; RESP 16; TEMP 36.4; O2SAT 98
[2022-04-10] MEDS: Acetaminophen 500 MG Tablet 1000 MG PO ×2 (05:46→11:38)
[2022-04-10 06:21] LABS: Bedside Glucose 64 mg/dL (74-106)
[2022-04-10 08:36] VITALS: BP 118/69; PULSE 71; RESP 15; TEMP 36.5; O2SAT 98
--- NOTE | 2022-04-10 09:36 | CON.PCM.LA_ITS ---
Assessment & Plan Assessment/Plan (1) Nipple pain: PLAN: Assisted patient to latch baby to right side for 13 minutes, pain at the start of the feed that improved as the feed continued. Assisted patient to pull lower lip down to deepen latch. Used gel pads after feed for comfort. Educated mom on how to assess nipple after feed. No active bleeding or significant cracking at this time. Will follow up with after discharge and will assist patient with feeds as needed while patient still inpatient. HPI Consult Data Date of Consult: 04/10/22 HPI Narrative HPI Narrative: LESLY RAMSEY, is a 26 F who presents for nipple pain with feeding. History provided by the patient. [facility] Medical History (Updated 04/10/22 @ 09:44 by Zaira Courtney NP, GREEN BUILDING ENGINEER-C) Anxiety Anxiety Complete Ear discomfort Family history of breast cancer in mother Nipple pain Otitis externa of right ear PTSD (post-traumatic stress disorder) Supervision of normal Home Medications docosahexaenoic acid 200 mg capsule ( DHA) 200 mg PO DAILY 08/24/21 [History Last Taken 04/04/22 22:00 200 mg] ondansetron 4 mg disintegrating tablet 4 mg PO Q8H PRN nausea and vomiting #90 tabs 10/18/21 [Rx Last Taken 03/04/22] fluoxetine 40 mg capsule (Prozac) 40 mg PO DAILY anxiety/depression 01/19/22 [History Last Taken 04/07/22 10:00 40 mg] blood-glucose meter #1 ea 01/20/22 [Rx Last Taken Unknown] lancets #100 ea 01/20/22 [Rx Last Taken Unknown] hydroxyzine pamoate 25 mg capsule (Vistaril) 25 mg PO PRN PRN anxiety 02/01/22 [History Last Taken 03/02/22] [id number] 1 mg tablet 1 tab PO DAILY 02/19/22 [History Last Taken 04/06/22 22:00] buspirone 15 mg tablet 15 mg PO TID PRN anxiety #30 tabs 02/24/22 [Rx Last Taken Unknown] pen needle, diabetic 32 gauge x 5/32 (BD Ultra-Fine Tanya Pen Needle) #100 ea 03/11/22 [Rx Last Taken Unknown] insulin NPH isoph U-100 human 100 unit/mL (3 mL) subcutaneous pen (Humulin N NPH U-100 Insulin KwikPen) See Rx Instructions subcut BID 03/31/22 [History Last Taken 04/07/22 22:00] Allergy/AdvReac Type Severity Reaction Status Date / Time Penicillins [PCN] AdvReac Nausea/Vom/ Verified 04/07/22 23:19 Diarrhea Family History Mother Breast cancer, Onset Age: 47 Social History adopted: No household members: significant other housing: house current occupation: [employer] current occupational exposures/hazards: No pets and animals: Yes (Not managing the litter boxes) pets and animals: cat(s) history of recent travel: No Smoking Status: Former smoker Electronic Cigarette Use: with nicotine and not used alcohol intake: former details: social substance use type: does not use well-balanced diet: about half the time caffeine: Yes Type: carbonated beverages Number of servings: 1 and coffee Number of servings: 1 eating out: 1-3 times/week during the past year weight has: remained stable what type of physical activity do you participate in: none daniel/scientologist: None seatbelt use: always do you feel safe at home: Yes additional social history: ALYSSA Reina Works at [employer] Constitutional Constitutional: Denies fever(s) Respiratory/Chest Respiratory/Chest: Denies cough Gastrointestinal Gastrointestinal: Reports other Details: q2-3 hours, 10-15 minutes per side, patient states nipple pain worsened last night, nipples started bleeding, pain is very sharp at the start of the feed then improves as the feed continues, used natural nipple cream last night and this morning started to feel better Exam General alert and no apparent distress Respiratory Respiratory: normal respiratory effort Skin normal color bilateral nipples reddened,small healing cracks to center of right nipple, no active bleeding present at time of exam Latch Score L - Latch Latch: Grasps breast, tongue down, lips flanged, rhymic sucking (2) A - Audible Swallowing Audible Swallowing: Spontaneous & intermittent <24 hrs, spontaneous & frequent >24 hrs (2) T - Type of Nipple Type of Nipple: Everted (after stimulation) (2) C - Comfort (Breast/Nipple) Comfort (Breast/Nipple): Filling/reddened/small blisters/bruises/mild/moderate discomfort (1) H - Hold (Positioning) Hold (Positioning): Minimal assist, teach/hold one side and mother does other (1) Total Score Total Score:: 8 Observation Feeding Observed:: Yes IBCLC Feeding Assessment Feeding Assessment Mother's feeding plans during 's hospitalization: Breastfeed Feeding Plan Feeding Plan: on demand, continue to feed goal of 8 feeds in 24 hours (q2-3 hours), make sure to pull bottom lip down to deepen latch to prevent further nipple breakdown Interventions IBCLC/CLC Interventions: Lansinoh, Gel pads and Schedule outpatient consult Education IBCLC/CLC Education: [id number]-[id number], Feeding on demand and Keep a feeding log Charges/Coding Visit Charges Inpatient E&M: 77073 Init Hosp L1
--- NOTE | 2022-04-10 10:19 | PCM.DC.SUM ---
Providers Date of Admission: 04/07/22 Primary Care Physician: No Primary Care Phys Consultations 04/10/22 09:07 Consult: Fire Information Officer Routine Consulting Provider: Zaira Courtney NP Reason for Consult: sore nipples EMERGENT Consult: No MD Notified: Yes Date Notified: 04/10/22 Time Notified: 09:07 Method of Notification: Verbal Reason For Visit: Diagnosis Discharge Diagnosis (1) Nipple pain: Status: Acute Code(s): N64.4 - Mastodynia Plan s/p LTCS PPD # 1 1. routine post care 2. breast feeding- support given 3. rh positive 4. rubella immune Medications at Discharge Home Medications docosahexaenoic acid 200 mg capsule ( DHA) 200 mg PO DAILY 08/24/21 ondansetron 4 mg disintegrating tablet 4 mg PO Q8H PRN nausea and vomiting #90 tabs 10/18/21 fluoxetine 40 mg capsule (Prozac) 40 mg PO DAILY anxiety/depression 01/19/22 blood-glucose meter #1 ea 01/20/22 lancets #100 ea 01/20/22 hydroxyzine pamoate 25 mg capsule (Vistaril) 25 mg PO PRN PRN anxiety 02/01/22 [id number]-FA 1 mg tablet 1 tab PO DAILY 02/19/22 buspirone 15 mg tablet 15 mg PO TID PRN anxiety #30 tabs 02/24/22 pen needle, diabetic 32 gauge x 5/32 (BD Ultra-Fine Tanya Pen Needle) #100 ea 03/11/22 insulin NPH isoph U-100 human 100 unit/mL (3 mL) subcutaneous pen (Humulin N NPH U-100 Insulin KwikPen) See Rx Instructions subcut BID 03/31/22 Hospital Course Operations section Summary of Care Provided Minutes Spent on Discharge: 15 Hospital Course: Anastasia Morillo is a 26 y/o who presented to labor and delivery early am on 04/08/22 in active labor and membranes ruptured spontaneously. During the day she failed to dilate and tracing showed cat 2 persistent tracing with prolonged decelerations at times and at times minimal variability. She had moderate bleeding and meconium stained fluid. The decision was made to proceed with a primary section and findings on exam were consistent with a mild abruption. She and her baby recovered well from surgery. on ppd #1 She was requiring extra assistance and pain medication. She took oxycodone sparingly and overall did well with ibuprofen. She is a gestational diabetic and fasting blood glucose levels were in the 60's after 1/4th dose of insulin. The decision was made to dc the insulin. on ppd#2 she was ambulating well and requested dc to home. Physical Exam HEENT normocephalic Resp normal respiratory effort and normal air movement GI soft to palpation, non-tender and non-distended Rectal Exam: other Other Details: Incision is clean, dry, and intact no CVA tenderness Extremity normal to inspection General Extremity: edema bilateral (trace ) Weight / BMI Weight Weight: 195 lb 6.4 oz Body Mass Index (BMI) 38.1 ABG / Lab / Microbiology Data Result Diagrams: 04/09/22 05:15 Laboratory: Laboratory Results - last 24 hr 04/09/22 12:09: POC Glucose 101 04/09/22 18:04: POC Glucose 137 H 04/10/22 05:58: POC Glucose 64 L Meaningful Use Info Meaningful Use Diagnoses (Choose all that apply): None applicable Discharge Plan Admission Admit Date/Time: 04/07/22 23:35 Primary Reason for Your Visit: setion Attending Provider: Priscilla Clarke Primary Care Provider: Care Physician,No Primary Consulting Providers: Zaira Courtney NP Discharge Orders/Prescriptions Prescriptions: No Action DHA 200 mg capsule 200 mg PO DAILY ondansetron 4 mg tablet,disintegrating 4 mg PO Q8H PRN (Reason: nausea and vomiting) Qty: 90 5RF buspirone 15 mg tablet 15 mg PO TID PRN (Reason: anxiety) Qty: 30 0RF Rx Instructions: do not take at same time as the vistaril medication (DME) pen needle, diabetic [BD Ultra-Fine Tanya Pen Needle] 32 gauge x needle See Rx Instructions .ROUTE .MEDSUPPLY Qty: 100 1RF Rx Instructions: bid Humulin N NPH Insulin KwikPen 100 unit/mL (3 mL) insulin pen See Rx Instructions subcut BID Rx Instructions: 22 Units subcutaneously in AM; 14 Units subcutaneously in PM fluoxetine [Prozac] 40 mg capsule 40 mg PO DAILY hydroxyzine pamoate [Vistaril] 25 mg capsule 25 mg PO PRN PRN (Reason: anxiety) 1 mg Tablet 1 tab PO DAILY (DME) blood-glucose meter Misc See Rx Instructions .ROUTE .MEDSUPPLY Qty: 1 0RF Rx Instructions: As directed- Test fasting and 2 hours after meals (DME) lancets Misc See Rx Instructions .ROUTE .MEDSUPPLY Qty: 100 12RF Rx Instructions: As directed Referrals / Follow Up: Care Physician,No Primary [Primary Care Provider] - Disposition Disposition (needs filled in before D/C Order can be placed): Home, Self Care
--- NOTE | 2022-04-10 10:23 | DCINST_ITS ---
Discharge Instructions Diet Discharge Diet: No restrictions Activity Discharge Activity: May Not Drive (for 2 weeks or while taking narcotic pain medications.), May Shower and May Take a Tub Bath (in 7 days.) May resume sexual activity in: 4-6 weeks Weight Bearing Status: Full weight bearing Lifting Restrictions: 20 pounds Dressing / Incision Call your doctor if your incision/area has: Continuous Slow Oozing, Sudden Increased Bleeding, Increased Pain/ Swelling, Increased Redness and Foul Smelling Discharge Call your doctor if you observe: Fever of 101 or Higher and Using more than 1 pad per hour Suture Line Care: Avoid Pulling/Pushing and Avoid Pinching/Bending Cleanse incision/area with: Soap & Water and Keep Dressing Clean & Dry Follow Up Care Please Follow Up With: Priscilla Clarke DO When: Call [phone] to make an appointment for an incision check in 1-2 weeks. Test Results: Test results from this visit will be discussed in further detail at your follow- up appointment, if applicable. Discharge Plan Admission Admit Date/Time: 04/07/22 23:35 Primary Reason for Your Visit: setion Attending Provider: Priscilla Clarke Primary Care Provider: Care Physician,No Primary Consulting Providers: Zaira Courtney NP Discharge Orders/Prescriptions Prescriptions: New oxycodone-acetaminophen [Percocet] 5-325 mg tablet 1 tab PO Q6H 7 Days Qty: 6 0RF Rx Instructions: 1 tabs q 6 hrs as needed for pain naproxen 500 mg tablet 500 mg PO BID PRN (Reason: pain) Qty: 30 0RF Continued DHA 200 mg capsule 200 mg PO DAILY ondansetron 4 mg tablet,disintegrating 4 mg PO Q8H PRN (Reason: nausea and vomiting) Qty: 90 5RF buspirone 15 mg tablet 15 mg PO TID PRN (Reason: anxiety) Qty: 30 0RF Rx Instructions: do not take at same time as the vistaril medication fluoxetine [Prozac] 40 mg capsule 40 mg PO DAILY hydroxyzine pamoate [Vistaril] 25 mg capsule 25 mg PO PRN PRN (Reason: anxiety) [id number] 1 mg Tablet 1 tab PO DAILY Discontinued Humulin N NPH Insulin KwikPen 100 unit/mL (3 mL) insulin pen See Rx Instructions subcut BID Rx Instructions: 22 Units subcutaneously in AM; 14 Units subcutaneously in PM No Action (DME) pen needle, diabetic [BD Ultra-Fine Tanya Pen Needle] 32 gauge x 5/32 needle See Rx Instructions .ROUTE .MEDSUPPLY Qty: 100 1RF Rx Instructions: bid (DME) blood-glucose meter Misc See Rx Instructions .ROUTE .MEDSUPPLY Qty: 1 0RF Rx Instructions: As directed- Test fasting and 2 hours after meals (DME) lancets Misc See Rx Instructions .ROUTE .MEDSUPPLY Qty: 100 12RF Rx Instructions: As directed Referrals / Follow Up: Care Physician,No Primary [Primary Care Provider] - Disposition Disposition (needs filled in before D/C Order can be placed): Home, Self Care
[2022-04-10] MEDS: FLUoxetine 20 MG Capsule 40 MG PO (10:48)
[2022-04-10] MEDS: Senna/Docusate Sodium 1 Tablet PO (10:49)
== END 2022-04-10 11:45 | disposition home or self-care (01) | DRG 786 ==
LOC: WPOUT 23:38 → WP 23:38
PROVIDERS: Obstetrics & Gynecology; Admitting Provider Obstetrics & Gynecology; Referring Provider Obstetrics & Gynecology; Visit Provider Obstetrics & Gynecology
DX: O24.424 Gestational diabetes mellitus in childbirth, insulin controlled (principal); O45.93 Premature separation of placenta, unspecified, third trimester; F41.9 Anxiety disorder, unspecified; O99.344 Other mental disorders complicating childbirth; Z3A.38 38 weeks gestation of pregnancy; O26.86 Pruritic urticarial papules and plaques of pregnancy (PUPPP); O77.0 Labor and delivery complicated by meconium in amniotic fluid; Z37.0 Single live birth; F32.A Depression, unspecified; Z87.891 Personal history of nicotine dependence; Z79.899 Other long term (current) drug therapy; O76 Abnormality in fetal heart rate and rhythm complicating labor and delivery
CPT/HCPCS: 59025; 59050; 82962; 84112; 85025; 85027; 86780; 86850; 86900; 86901; 88307; 99221; J7120; A4216; G0378; J2405

== ENCOUNTER → 2023-01-18 | Outpatient (CLI) | payer OTHER, SELFPAY | END | disposition home or self-care (01) | LOC: LABSPEC 16:53 | PROVIDERS: Referring Provider Nurse Practitioner Women's Health; Visit Provider Nurse Practitioner Women's Health | DX: N89.8 Other specified noninflammatory disorders of vagina (principal) | CPT/HCPCS: 87070; 87205 ==

== ENCOUNTER → 2023-10-31 | Outpatient (CLI) | payer OTHER, SELFPAY ==
--- NOTE | 2023-10-31 12:13 | US_ITS ---
STUDY: FIRST TRIMESTER OBSTETRICAL ULTRASOUND REASON FOR EXAM: Female, 27 years old LLQ pain in preg r/o ectopic LMP: 09/12/2023 TECHNIQUE: Transvaginal TECHNICAL QUALITY: Adequate. PRIOR ULTRASOUND: None. FINDINGS: There is visualization of a single gestational sac in a normal intrauterine position. The mean sac diameter (MSD) measures 18 mm, indicating an estimated gestational age (EGA) of 6 weeks, 5 days. The gestational sac shape is within normal limits. There is a visualized yolk sac. The yolk sac measures 2 mm. The placenta is non-visualized. There is visualization of a live embryo. The crown-rump length (CRL) measures 8 mm, indicating an estimated gestational age (EGA) of 6 weeks, 6 days. There is demonstrated cardiac activity with a heart rate of 139 bpm. The estimated gestation age (EGA) by LMP is 7 weeks, 0 days. The estimated date of delivery (NADEGE) by LMP is 06/18/2024. The estimated gestation age (EGA) by US is 6 weeks, 6 days. The estimated date of delivery (NADEGE) by US is 06/19/2024. The uterus measures 9.9 x 6.2 x 5.9 cm. There is no demonstrated uterine fibroid. The cervix is closed. The right ovary is not visualized. The left ovary measures 2.5 x 2.2 x 3.0 cm. There is no left ovarian cyst. There is no visualized left adnexal mass or complex lesion. There is no fluid in the cul de sac. US/Transvaginal w/Preg US IMPRESSION: Living intrauterine of 6 weeks 6 days as described above. Electronically Signed: Colby Cullen MD at 13:43 EDT ,
== END | disposition home or self-care (01) ==
LOC: US 12:13
PROVIDERS: Referring Provider Obstetrics & Gynecology; Visit Provider Obstetrics & Gynecology
DX: O26.899 Other specified pregnancy related conditions, unspecified trimester (principal); R10.32 Left lower quadrant pain; Z3A.00 Weeks of gestation of pregnancy not specified
CPT/HCPCS: 76817

== ENCOUNTER → 2023-11-17 | Outpatient (CLI) | payer OTHER, SELFPAY ==
[2023-11-17 12:24] LABS: Absolute Lymphocyte Count 1.65 X10^3/uL (0.83-4.51); Absolute Neutrophil Count 5.3 X10^3/uL (2.0-7.7); Basophil# 0.05 X10^3/uL; Basophil% 0.6 % (0-1); Eosinophil# 0.18 X10^3/uL; Eosinophils% 2.3 % (0-5); Hematocrit 37.1 % (37-47); Hemoglobin 12.5 g/dL (12.0-15.0); Lymphocyte # 1.65 X10^3/ul (0.83-4.51); Lymphocyte % 21.4 % (19-41); Mean Corp Hgb Conc 33.7 g/dL (32-36); Mean Corpuscular Hgb 29.9 pg (27.0-32.0); Mean Corpuscular Volume 88.8 fL (81-99); Mean Platelet Vol. 11.1 fl (6.2-12.0); Monocyte# 0.51 X10^3/uL; Monocyte% 6.6 % (0-10); NRBC Flagged by Analyzer 0 % (0-5); Neutrophil % 68.7 % (47-70); Platelet Count 225 K/mm3 (150-450); RBC Distribution Width CV 12.5 % (11.6-14.6); RBC Distribution Width SD 40.9 fl (35.1-43.9); Red Blood Count 4.18 M/mm3 (4.2-5.4); White Blood Count 7.7 K/mm3 (4.4-11.0)
[2023-11-17 13:32] LABS: HIV - WCH Non-Reactive (Nonreactive); Hepatitis B Surface Antigen Non-Reactive (Nonreactive); Hepatitis C Antibody Non-Reactive (Nonreactive); Rubella IgG Reactive (Nonreactive); Syphilis Antibodies Non-reactive
[2023-11-21 04:07] LABS: Chlamydia By Nucleic Acid AMP Negative (Negative); Gonococcus By Nucleic Acid AMP Negative (Negative)
== END | disposition home or self-care (01) ==
LOC: WOBLAB 12:06
PROVIDERS: Referring Provider Registered Nurse; Visit Provider Registered Nurse
DX: N89.8 Other specified noninflammatory disorders of vagina (principal); Z34.90 Encounter for supervision of normal pregnancy, unspecified, unspecified trimester
CPT/HCPCS: 36415; 83036; 85025; 86703; 86762; 86780; 86803; 86850; 86900; 86901; 87070; 87086; 87088; 87205; 87340; 87491; 87591

== ENCOUNTER 2024-01-25 09:28 | Emergency (ER) | payer OTHER, SELFPAY ==
[2024-01-25 09:29] VITALS: BP 118/69; PULSE 84; RESP 14; TEMP 36.1; O2SAT 99; BMI 35.6
[2024-01-25 10:22] LABS: Bacteria 0 SEEN /hpf (None Seen); Mucous, Urine 0 SEEN /hpf (<or=2+)
[2024-01-25 10:30] LABS: Color, Urine Yellow (Yellow); Glucose, Dipstick Normal (Normal); Ketone-Dipstick Negative (Negative); Leukocyte Esterase-Dipstick 25 /ul (Negative); Nitrite-Dipstick Negative (Negative); Occult Blood-Urine 150 /ul (Negative); Protein-Dipstick 30 mg/dl (Negative); Urine Bilirubin Dipstick Negative (Negative); Urine Clarity Sl. Cloudy (Clear); Urine Urobilinogen Normal (Normal)
--- NOTE | 2024-01-25 10:32 | US_ITS ---
INDICATION: 19 weeks preg and bleeding -- ok EXAMINATION: Ultrasound US OB Less Than 14 Weeks TECHNIQUE: Transabdominal and transvaginal pelvic ultrasound was performed. Grayscale, spectral waveform, and color flow Doppler evaluation of the adnexa. COMPARISON: Prior study dated: 10/31/2023 FINDINGS: Limited examination was performed to evaluate placenta. Posterior placenta is seen approximately 2.3 cm away from the cervix without evidence of placenta previa and does not appear to be low-lying. The cervix measures about 4.2 cm in length and appears closed. heart rate is 143 bpm. age by LMP is 19 weeks and 2 days. NADEGE is 06/18/2024. US/Transvaginal w/Preg US IMPRESSION: Posterior placenta without evidence of previa as described above. Electronically Signed: Fuad Cueva MD at 12:18 EST ,
--- NOTE | 2024-01-25 10:34 | ED.VIS.FEGU ---
HPI HPI - Female History of Present Illness Chief Complaint: Vag Bld, Preg Informant: patient Pain Pain: Positive for Pelvic Pain Onset: Today Timing: Intermittent Quality: Positive for Cramping Current Severity: Gone Maximum Severity: Mild Bleeding Issue: Positive for Vaginal bleeding Onset: Today Timing: Intermittent Current Severity: Spotting Associated Symptoms Associated Symptoms: Negative for Dysuria or Frequency Test: Positive Sexually: Positive for Active P: 1 Ab: 1 Narrative Narrative: 28-year-old female currently 19 weeks . Sees [facility]. G3, P1 Ab1. Blood type a positive. Today had small muscle cramping and small amount of spotting. No fever. No dysuria. Prior similar symptoms: Yes Recent Illness/Hospitalization: No PFSH PFSH Medical History Post depression Gestational diabetes Panic Nicotine use disorder OCD (obsessive compulsive disorder) Nipple pain Supervision of normal Otitis externa of right ear Family history of breast cancer in mother Anxiety Ear discomfort Complete PTSD (post-traumatic stress disorder) Anxiety Home Medications ?Medication ?Instructions ?Recorded ?Last Taken ?Type fluoxetine 40 mg capsule 80 mg (2 x 40 mg) PO DAILY #180 08/30/23 Unknown Rx caps hydroxyzine HCl 10 mg tablet 10 mg PO TID #90 tabs 08/30/23 Unknown Rx docosahexaenoic acid 200 mg mg PO 11/10/23 Unknown History capsule ( DHA) ondansetron HCl 4 mg tablet 4 mg PO Q6H PRN nausea and 12/13/23 Unknown Rx vomiting #60 tabs Allergy/AdvReac Type Severity Reaction Status Date / Time Penicillins (PCN) AdvReac Nausea/Vom/ Verified 01/10/24 13:36 Diarrhea Family History Mother Breast cancer, Onset Age: 47 Grandmother Myocardial infarction Grandfather Myocardial infarction Surgical History Status post delivery Social History adopted: No household members: significant other housing: house number of children: 1 current occupational status: employed 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 current occupational exposures/hazards: No pets and animals: Yes (Not managing the litter boxes) pets and animals: cat(s) history of recent travel: No sexually active: Yes Smoking Status: Former smoker Electronic Cigarette Use: with nicotine and not used how long ago did patient quit smokin.5mo ago alcohol intake: current alcohol intake frequency: holidays/special occasions only details: not while substance use type: does not use well-balanced diet: about half the time caffeine: Yes Type: coffee Number of servings: 1 eating out: 1-3 times/week during the past year weight has: remained stable what type of physical activity do you participate in: none daniel/pentecostalism: None seatbelt use: always do you feel safe at home: Yes additional social history: Fiance: Lai RANDOLPH [employer] 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 Constitutional Constitutional ED: Denies chills or fever(s) Eyes Eyes: Denies blurry vision ENT ENT ED: Denies ear pain Cardiovascular Cardiovascular: Denies chest pain Respiratory/Chest Respiratory/Chest: Denies cough Gastrointestinal Gastrointestinal: Reports abdominal pain Genitourinary Genitourinary ED: Denies dysuria Musculoskeletal Musculoskeletal: Denies arthralgias Integumentary Denies abscess Neurologic Neurologic: Denies headache(s) Psychiatric Psychiatric: Denies anxiety Endocrine Endocrinology: Denies heat intolerance Hematologic/Lymphatic Hematologic/Lymphatic: Denies easy bleeding Allergic/Immunologic Allergic/Immunologic ED: Denies mouth swelling EXAM Physical Exam Narrative Exam Narrative: 28-year-old female no acute distress. Vital signs are stable afebrile. at bedside. H EENT exam unremarked. Neck nontender. Lungs clear to auscultation bilaterally. Heart regular rate and rhythm no murmur. Abdomen is soft, nontender, nondistended normal bowel sounds without peritoneal signs. Moving all 4 extremities. Nontender no edema. She is awake alert. No focal motor deficits. Benign exam. Const Vital Signs: 01/25/24 09:29 01/25/24 11:29 Temperature 96.9 F L Temperature Source Temporal Pulse Rate 84 69 Respiratory Rate 14 14 Blood Pressure 118/69 104/58 L Blood Pressure Mean 85 73 Pulse Ox 99 97 Oxygen Delivery Method Room Air Room Air Positive well nourished and well developed; Negative for obese, cachectic, contractures or unkempt General Appearance ED: well developed and NAD; Negative for unkempt, cachectic, contractures or pallor Nutritional Appearance: Negative for cachectic or obese HEENT Reports moist mucous membranes Negative for trauma or tenderness Eyes PERRL and EOMs intact bilaterally General Eye ED: Negative for pale conjunctiva or scleral icterus Neck no lymphadenopathy, supple and no JVD General: Negative for other Chest Wall inspection of chest normal and palpation of chest normal Chest: Negative for other Resp normal respiratory effort and clear to auscultation bilaterally Effort and Inspection: Negative for pain with movement Cardio regular rate, regular rhythm, no murmurs and no JVD Rate: Negative for bradycardia or tachycardic Rhythm: Negative for abnormal rhythm GI normal to inspection, nondistended, normoactive bowel sounds, soft to palpation, non-tender, non-distended and no masses Auscultation: normoactive bowel sounds Palpation: Negative for tender, guarding, rigid or mass Back/Spine no CVA tenderness General Back: Negative for CVA tenderness Cervical Spine: Negative for cervical spine tenderness Thoracic Spine / Upper Back: Negative for thoracic spinal tenderness Lumbar Spine / Lower Back: Negative for lumbar spinal tenderness Sacrum: Negative for other Extremity normal to inspection and full ROM General Extremety ED: Negative for edema or tenderness General Extremity: Negative for edema Neuro oriented x3 and CN's II-XII intact bilaterally Sensorium / Orientation: alert, oriented to person, oriented to place and oriented to time; Negative for confused, lethargic or stuporous Motor Exam: strength 5/5 throughout Psych mental status grossly normal Appearance: Negative for unkempt Attitude: No agitated Speech: No other Mood & Affect: Negative for depressed, anxious or tearful Skin no rashes or lesions noted and no wounds General Skin Exam: Negative for jaundice or pallor Rashes: No rashes noted Trauma: Negative for other MDM MDM MDM Narrative Medical decision making narrative: 28-year-old female G3, P1 Ab1 with spotting at about 19 weeks . She is blood type a positive. UA, quant and pelvic ultrasound being obtained. Repeat exam patient is doing well at 12:22 PM. Exam unchanged. We discussed her test results. She will be discharged home. Threatened miscarriage. Follow-up with [facility]. History & Record Review Discussion w/independent historian: Patient and Family Additional record(s) reviewed:: Prior inpatient record, Prior outpatient record, Prior ED visit and Prior labs Lab Data Attestation: I reviewed the patient's lab results. Lab results narrative: Quantitative hCG 10, 569. UA negative. No white or red cells. No nitrites nor bacteria. Ultrasound shows single live IUP at 19 weeks and 2 days. Heart rate of 143. Estimated due date is 06/18/2024. Labs: Laboratory Results - last 24 hr 01/25/24 01/25/24 10:09 10:26 HCG, Quant 13180 H Serum , Qual Cancelled Urine Color Yellow Urine Clarity Sl. Cloudy Urine pH 7.0 Ur Specific [place] 1.010 Urine Protein 30 H Urine Glucose (UA) Normal Urine Ketones Negative Urine Occult Blood 150 H Urine Nitrite Negative Urine Bilirubin Negative Urine Urobilinogen Normal Ur Leukocyte Esterase 25 H Urine RBC 0-5 SEEN Urine WBC 0-5 SEEN Ur Squamous Epith Cells 5-10 SEEN Urine Bacteria 0 SEEN Urine Mucus 0 SEEN Radiography Diagnostic Testing: Clinical Impression(s) from Imaging Studies Obstetrics Ultrasound 01/25/24 10:32 IMPRESSION: Posterior placenta without evidence of previa as described above. Electronically Signed: Fuad Cueva MD at 12:18 EST , Discharge Plan Triage Chief Complaint: Vag Bld, Preg ED Provider: Masoud Cordero Dx/Rx/DC Orders Prescriptions: No Action fluoxetine 40 mg capsule 80 mg PO DAILY Qty: 180 1RF hydroxyzine HCl 10 mg tablet 10 mg PO TID Qty: 90 2RF DHA 200 mg capsule PO ondansetron HCl 4 mg tablet 4 mg PO Q6H PRN (Reason: nausea and vomiting) Qty: 60 3RF Primary Care Provider: Care Physician,No Primary Referrals: Care Physician,No Primary [Primary Care Provider] - Print Language: Syriac
[2024-01-25 10:39] LABS: Squamous Epithelial Cells - UA 5-10 SEEN /hpf (5-10)
[2024-01-25 10:40] LABS: Red Blood Cells-Urine 0-5 SEEN /hpf (0-5); White Blood Cells 0-5 SEEN /hpf (0-5)
[2024-01-25 11:09] LABS: hCG Titer Quant., Serum 10569 mIU/mL (1-3)
[2024-01-25 11:29] VITALS: BP 104/58; PULSE 69; RESP 14; O2SAT 97
[2024-01-25 12:31] VITALS: BP 110/76; PULSE 81; RESP 14; TEMP 36.6; O2SAT 98
== END 2024-01-25 12:33 | disposition home or self-care (01) ==
PROVIDERS: Emergency Provider Emergency Medicine; Visit Provider Emergency Medicine
DX: O20.0 Threatened abortion (principal); Z87.891 Personal history of nicotine dependence; Z3A.19 19 weeks gestation of pregnancy
CPT/HCPCS: 76817; 81001; 84702; 99283

== ENCOUNTER 2024-01-27 04:56 | Emergency (ER) | payer OTHER, SELFPAY ==
[2024-01-27 04:58] VITALS: BP 123/78; PULSE 101; RESP 20; TEMP 36.8; O2SAT 99; BMI 35.2
--- NOTE | 2024-01-27 05:29 | EDS_ITS ---
HPI <Dr. Ty Younger DO - Last Filed: 01/27/24 07:10> HPI - Female History of Present Illness Chief Complaint: Vag Bld, Preg PFSH <Dr. Ty Younger DO - Last Filed: 01/27/24 07:10> PFS Medical History Post depression Gestational diabetes Panic Nicotine use disorder OCD (obsessive compulsive disorder) Nipple pain Supervision of normal Otitis externa of right ear Family history of breast cancer in mother Anxiety Ear discomfort Complete PTSD (post-traumatic stress disorder) Anxiety Home Medications ?Medication ?Instructions ?Recorded ?Last Taken ?Type fluoxetine 40 mg capsule 80 mg (2 x 40 mg) PO DAILY #180 08/30/23 Unknown Rx caps docosahexaenoic acid 200 mg mg PO DAILY 11/10/23 Unknown History capsule ( DHA) ondansetron HCl 4 mg tablet 4 mg PO Q6H PRN nausea and 12/13/23 Unknown Rx vomiting #60 tabs hydroxyzine HCl 10 mg tablet 10 mg PO TID PRN anxiety 01/27/24 Unknown History Allergy/AdvReac Type Severity Reaction Status Date / Time Penicillins (PCN) AdvReac Nausea/Vom/ Verified 01/27/24 05:03 Diarrhea Family History Mother Breast cancer, Onset Age: 47 Grandmother Myocardial infarction Grandfather Myocardial infarction Surgical History Status post delivery Social History adopted: No household members: significant other housing: house number of children: 1 current occupational status: employed 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 current occupational exposures/hazards: No pets and animals: Yes (Not managing the litter boxes) pets and animals: cat(s) history of recent travel: No sexually active: Yes Smoking Status: Former smoker Electronic Cigarette Use: with nicotine and not used how long ago did patient quit smokin.5mo ago alcohol intake: current alcohol intake frequency: holidays/special occasions only details: not while substance use type: does not use well-balanced diet: about half the time caffeine: Yes Type: coffee Number of servings: 1 eating out: 1-3 times/week during the past year weight has: remained stable what type of physical activity do you participate in: none daniel/congregational: None seatbelt use: always do you feel safe at home: Yes additional social history: Fiance: Lai - ANS Induction Furnace Operator EXAM <Dr. Ty Younger, DO - Last Filed: 01/29/24 01:34> Physical Exam Const Vital Signs: 01/27/24 04:58 01/27/24 06:56 01/27/24 08:00 Temperature 98.3 F Temperature Source Oral Pulse Rate 101 H 87 67 Respiratory Rate 20 H 20 H 18 Blood Pressure 123/78 H 100/60 105/65 Blood Pressure Mean 93 73 78 Pulse Ox 99 97 Oxygen Delivery Method Room Air Room Air Room Air <Dr. Juan Yoder, DO - Last Filed: 01/27/24 10:09> Physical Exam Const Vital Signs: 01/27/24 04:58 01/27/24 06:56 01/27/24 08:00 Temperature 98.3 F Temperature Source Oral Pulse Rate 101 H 87 67 Respiratory Rate 20 H 20 H 18 Blood Pressure 123/78 H 100/60 105/65 Blood Pressure Mean 93 73 78 Pulse Ox 99 97 Oxygen Delivery Method Room Air Room Air Room Air MDM <Dr. Ty Younger, DO - Last Filed: 01/29/24 01:34> MDM MDM Narrative Medical decision making narrative: Interventions / MDM: Differential diagnosis: Threatened miscarriage, second trimester Diagnosis considered but do not suspect: N/A My EKG interpretation: N/A Imaging independently reviewed and interpreted by myself: Transvaginal ultrasound: Pending External documents reviewed: Pelvic ultrasound formally done 2 days ago no placenta previa, posterior placenta. Test considered but not ordered:N/A ED course: Patient records note blood type O+. Bedside ultrasound performed myself heart tone 156, positive movement. 0520: I spoke with covering OB Dr. Brock, discussed her history discussed the ultrasound formally done 2 days ago discussed today's ultrasound. She would like patient cervix checked to make sure it is closed. She discussed this can be done in the ED by myself or the labor and delivery nurse can be sent down. I had plans of doing a pelvic exam. However discussing with the patient, she is concerned with her continued bleeding since coughing. She states she would be very upset if she is sent home. Therefore I will have labor and delivery nurse, evaluate the patient. 0600: Hemoglobin 12.5. Fibrinogen 151. hCG 10,141. I received call back from Dr. Brock, per labor and delivery nurse cervix is closed. She recommended monitoring the ED obtaining a formal ultrasound then calling her back with results. We will observe her bleeding in the ED. Re-evaluation: stable Disposition discussed with patient/family/significant other: Patient and significant other Case discussed with consulting clinician: OB This note was generated with ObserveIT dictation software. It may contain incorrect words, spelling, and punctuation that were not noted in checking the note before signing. Lab Data Labs: Laboratory Results - last 24 hr 01/27/24 05:00 Hgb 12.5 Hct 36.1 L PT 13.0 INR 1.0 APTT 26.1 Fibrinogen 551 H HCG, Quant [id number] H Radiography Diagnostic Testing: Clinical Impression(s) from Imaging Studies Obstetrics Ultrasound 01/27/24 06:04 IMPRESSION: Posterior low-lying placenta. The cervix is closed. Electronically Signed: Fuad Cueva MD at 9:08 EST , <Dr. Juan Yoder, DO - Last Filed: 01/27/24 10:09> MDM MDM Narrative Medical decision making narrative: Interventions / MDM: Differential diagnosis: Threatened miscarriage, second trimester Diagnosis considered but do not suspect: N/A My EKG interpretation: N/A Imaging independently reviewed and interpreted by myself: Transvaginal ultrasound: Pending External documents reviewed: Pelvic ultrasound formally done 2 days ago no placenta previa, posterior placenta. Test considered but not ordered:N/A ED course: Patient records note blood type O+. Bedside ultrasound performed myself heart tone 156, positive movement. 0520: I spoke with covering OB Dr. Brock, discussed her history discussed the ultrasound formally done 2 days ago discussed today's ultrasound. She would like patient cervix checked to make sure it is closed. She discussed this can be done in the ED by myself or the labor and delivery nurse can be sent down. I had plans of doing a pelvic exam. However discussing with the patient, she is concerned with her continued bleeding since coughing. She states she would be very upset if she is sent home. Therefore I will have labor and delivery nurse, evaluate the patient. 0600: Hemoglobin 12.5. Fibrinogen 151. hCG 10,141. I received call back from Dr. Brock, per labor and delivery nurse cervix is closed. She recommended monitoring the ED obtaining a formal ultrasound then calling her back with results. We will observe her bleeding in the ED. Re-evaluation: stable Disposition discussed with patient/family/significant other: Patient and significant other Case discussed with consulting clinician: OB This note was generated with WakingAppation software. It may contain incorrect words, spelling, and punctuation that were not noted in checking the note before signing. Addendum Patient's case was signed out to me Dr. Juan Yoder to follow-up on the transvaginal ultrasound. Patient transvaginal ultrasound was reviewed and showed a posterior low-lying placenta. The cervix is closed. I called back and discussed with her OB Dr. Brock who is recommending pelvic rest and to follow-up with them in the outpatient setting early next week. Patient was advised to return for soaking through a pad more than 1 an hour, passing large clots or any other concerns. She was advised that she could continue to spot through the weekend. She was placed on pelvic rest I discussed this with her. She is agreeable this plan she would like to go home at this point time. All question concerns answered she was discharged home in stable condition. Lab Data Labs: Laboratory Results - last 24 hr 01/27/24 05:00 Hgb 12.5 Hct 36.1 L PT 13.0 INR 1.0 APTT 26.1 Fibrinogen 551 H HCG, Quant [id number] H Radiography Diagnostic Testing: Clinical Impression(s) from Imaging Studies Obstetrics Ultrasound 01/27/24 06:04 IMPRESSION: Posterior low-lying placenta. The cervix is closed. Electronically Signed: Fuad Cueva MD at 9:08 EST , Discharge Plan Triage Chief Complaint: Vag Bld, Preg ED Provider: Ty Younger Dx/Rx/DC Orders Clinical Impression: Threatened miscarriage, Second trimester Instructions: 2nd Trimester Adapt, Miscarriage Threatened Prescriptions: No Action fluoxetine 40 mg capsule 80 mg PO DAILY Qty: 180 1RF DHA 200 mg capsule PO DAILY Rx Instructions: one tablet ondansetron HCl 4 mg tablet 4 mg PO Q6H PRN (Reason: nausea and vomiting) Qty: 60 3RF hydroxyzine HCl 10 mg tablet 10 mg PO TID PRN (Reason: anxiety) Primary Care Provider: Care Physician,No Primary Referrals: Priscilla Clarke DO [Med Staff - Active Staff] - Keep Brandon appointment Care Physician,No Primary [Primary Care Provider] - Activity Restrictions/Additional Instructions: Follow-up with your PROCESS AUTOMATION ENGINEER in the outpatient setting call them on Monday.. You are on pelvic rest no sexual intercourse nothing inserted in your vagina. Return for going through more than 1 pad an hour, passing large clots or any other concerns. Print Language: Mohawk Disposition Disposition: Home, Self Care Discharge Date/Time: 01/27/24 10:17
--- NOTE | 2024-01-27 05:31 | ED.RN ---
Called L&D to request nurse to perform cervical exam on pt. L&D nurse to ER at this time
[2024-01-27] MEDS: Ondansetron 4 MG/2 ML Vial IV (05:50)
[2024-01-27 05:58] LABS: Hematocrit 36.1 % (37-47); Hemoglobin 12.5 g/dL (12.0-15.0)
--- NOTE | 2024-01-27 06:04 | US_ITS ---
INDICATION: vaginal bleeding w/ -- scanned 2 days ago EXAMINATION: Ultrasound US OB Transvaginal TECHNIQUE: Transabdominal pelvic ultrasound was performed. Grayscale, spectral waveform, and color flow Doppler evaluation of the adnexa. COMPARISON: Prior study dated: 01/25/2024 LMP: [09/12/2023 Beta-hCG: Unknown FINDINGS: Intrauterine gestational sac is again seen. heart rate is 136 bpm. The placenta is posterior and low-lying at this time approximately 1 cm away from the cervix. The cervix is closed measuring about 6 cm in length. US/Transvaginal w/Preg US IMPRESSION: Posterior low-lying placenta. The cervix is closed. Electronically Signed: Fuad Cueva MD at 9:08 [facility] ,
[2024-01-27 06:34] LABS: Fibrinogen 551 mg/dl (203-444); Partial Thromboplast Time 26.1 Seconds (24.1-36.2)
[2024-01-27 06:35] LABS: hCG Titer Quant., Serum 10141 mIU/mL (1-3)
[2024-01-27 06:56] VITALS: BP 100/60; PULSE 87; RESP 20; O2SAT 97
[2024-01-27 08:00] VITALS: BP 105/65; PULSE 67; RESP 18
[2024-01-27] MEDS: Acetaminophen 500 MG Tablet 1000 MG PO (09:09)
[2024-01-27 10:16] VITALS: BP 104/76; PULSE 81; RESP 16; TEMP 36.4; O2SAT 98
== END 2024-01-27 10:17 | disposition home or self-care (01) ==
PROVIDERS: Emergency Provider Emergency Medicine; Visit Provider Emergency Medicine
DX: O20.0 Threatened abortion (principal); O44.42 Low lying placenta NOS or without hemorrhage, second trimester; Z87.891 Personal history of nicotine dependence; Z3A.00 Weeks of gestation of pregnancy not specified
CPT/HCPCS: 76817; 84702; 85014; 85018; 85384; 85610; 85730; 96374; 99282; A4216; J2405

== ENCOUNTER 2024-03-20 03:00 | Outpatient (CLI) | payer OTHER, SELFPAY ==
[2024-03-20 03:08] VITALS: BMI 37.0
[2024-03-20 03:13] VITALS: BP 117/65; PULSE 91; O2SAT 98
[2024-03-20 03:14] VITALS: RESP 16; TEMP 36.4
[2024-03-20 03:49] LABS: Color, Urine Yellow (Yellow); Glucose, Dipstick Normal (Normal); Ketone-Dipstick Negative (Negative); Leukocyte Esterase-Dipstick Negative /ul (Negative); Nitrite-Dipstick Negative (Negative); Occult Blood-Urine Negative /ul (Negative); Protein-Dipstick Negative (Negative); Urine Bilirubin Dipstick Negative (Negative); Urine Clarity Clear (Clear); Urine Urobilinogen Normal (Normal)
--- NOTE | 2024-03-20 08:07 | OB.TRI.PN ---
Progress Notes Date of Service: 03/20/24 Progress Note: Patient presents for triage evaluation secondary to contractions FHT: 130 Moderate variability reactive no decelerations category I tracing GA approrpiate [place]: isolated Contractions Assessment and plan: contractions only isolated seen on monitor after 2 hours of monitoring Reactive NST, reassuring maternal and status patient discharged to home to follow-up as scheduled. See problem list details for additional plan information. Laboratory Studies: Laboratory Tests 03/20/24 Range/Units 03:20 Urine Color Yellow (Yellow) Urine Clarity Clear (Clear) Urine pH 7.0 (5.0 - 8.0) Ur Specific [place] 1.010 (1.002-1.030) Urine Protein Negative (Negative) mg/dl Urine Glucose (UA) Normal (Normal) mg/dl Urine Ketones Negative (Negative) mg/dl Urine Occult Blood Negative (Negative) /ul Urine Nitrite Negative (Negative) Urine Bilirubin Negative (Negative) mg/dL Urine Urobilinogen Normal (Normal) mg/dl Ur Leukocyte Esterase Negative (Negative) /ul Charges/Coding Procedures Urinary/Genital 52xxx-59xxx: [id number] non-stress test Interp Assessment & Plan (1) contractions: (2) Placenta previa: QUALIFIERS: Trimester: second trimester Qualified Code(s): O44.02 - Complete placenta previa NOS or without hemorrhage, second trimester COMMENT: complete previa deliver at 37 weeks if not resolved-pelvic rest. Rpt 28 wk. placenta is posterior, previous csection but minimal anterior position so low suspicion for acreata (3) Supervision of high-risk : QUALIFIERS: Trimester: second trimester Qualified Code(s): O09.92 - Supervision of high risk , unspecified, second trimester COMMENT: [id number], NADEGE 06/18/24, PC: Julianna Massey (4) : QUALIFIERS: Weeks of gestation: 25 weeks Qualified Code(s): Z3A.25 - 25 weeks gestation of COMMENT: Discussed genetic/carrier testing - declined (5) H/O: : COMMENT: 2022 - Would likeRCS
== END 2024-03-20 05:00 | disposition home or self-care (01) ==
LOC: WPOUT 03:03 → WP 03:04
PROVIDERS: Referring Provider Obstetrics & Gynecology; Visit Provider Obstetrics & Gynecology
DX: O47.02 False labor before 37 completed weeks of gestation, second trimester (principal); O44.02 Complete placenta previa NOS or without hemorrhage, second trimester; O34.219 Maternal care for unspecified type scar from previous cesarean delivery; Z3A.25 25 weeks gestation of pregnancy
CPT/HCPCS: 59025; 59050; 81002; 99221; G0378

== ENCOUNTER → 2024-03-28 | Outpatient (CLI) | payer OTHER, SELFPAY ==
[2024-03-28 17:22] LABS: Absolute Lymphocyte Count 1.21 X10^3/uL (0.83-4.51); Absolute Neutrophil Count 7.9 X10^3/uL (2.0-7.7); Basophil# 0.02 X10^3/uL; Basophil% 0.2 % (0-1); Eosinophil# 0.08 X10^3/uL; Eosinophils% 0.8 % (0-5); Hemoglobin 11.3 g/dL (12.0-15.0); Lymphocyte # 1.21 X10^3/ul (0.83-4.51); Lymphocyte % 12.5 % (19-41); Mean Corp Hgb Conc 33.2 g/dL (32-36); Mean Corpuscular Hgb 30.7 pg (27.0-32.0); Mean Corpuscular Volume 92.4 fL (81-99); Mean Platelet Vol. 11.5 fl (6.2-12.0); Monocyte# 0.43 X10^3/uL; Monocyte% 4.4 % (0-10); NRBC Flagged by Analyzer 0 % (0-5); Neutrophil # 7.89 X10^3/uL (2.7-7.7); Neutrophil % 81.5 % (47-70); Platelet Count 226 K/mm3 (150-450); RBC Distribution Width CV 13.2 % (11.6-14.6); RBC Distribution Width SD 44.8 fl (35.1-43.9); Red Blood Count 3.68 M/mm3 (4.2-5.4); White Blood Count 9.7 K/mm3 (4.4-11.0)
[2024-03-28 17:25] LABS: Glucose Challenge Gest 1H 50g 189 mg/dL (70-140)
[2024-03-28 17:57] LABS: HIV - WCH Non-Reactive (Nonreactive); Syphilis Antibodies Non-reactive
== END | disposition home or self-care (01) ==
LOC: BWCLAB 13:28
PROVIDERS: Referring Provider Obstetrics & Gynecology; Visit Provider Obstetrics & Gynecology
DX: O09.92 Supervision of high risk pregnancy, unspecified, second trimester (principal); Z13.1 Encounter for screening for diabetes mellitus; Z3A.00 Weeks of gestation of pregnancy not specified
CPT/HCPCS: 36415; 82950; 85025; 86703; 86780

== ENCOUNTER 2024-04-25 17:08 | Emergency (ER) | payer OTHER, SELFPAY ==
[2024-04-25 17:10] VITALS: BP 130/69; PULSE 90; RESP 16; TEMP 36.8; O2SAT 100; BMI 38.0
[2024-04-25 18:02] LABS: Absolute Lymphocyte Count 1.36 X10^3/uL (0.83-4.51); Basophil# 0.02 X10^3/uL; Basophil% 0.3 % (0-1); Eosinophil# 0.05 X10^3/uL; Eosinophils% 0.6 % (0-5); Hematocrit 31.9 % (37-47); Hemoglobin 11.1 g/dL (12.0-15.0); Lymphocyte # 1.36 X10^3/ul (0.83-4.51); Lymphocyte % 17.1 % (19-41); Mean Corp Hgb Conc 34.8 g/dL (32-36); Mean Corpuscular Hgb 31.3 pg (27.0-32.0); Mean Corpuscular Volume 89.9 fL (81-99); Mean Platelet Vol. 11.3 fl (6.2-12.0); Monocyte# 0.47 X10^3/uL; Monocyte% 5.9 % (0-10); NRBC Flagged by Analyzer 0 % (0-5); Neutrophil % 75.5 % (47-70); Platelet Count 192 K/mm3 (150-450); RBC Distribution Width CV 12.9 % (11.6-14.6); RBC Distribution Width SD 42.5 fl (35.1-43.9); Red Blood Count 3.55 M/mm3 (4.2-5.4)
[2024-04-25 19:00] VITALS: BP 119/66; PULSE 82; RESP 16; O2SAT 97
--- NOTE | 2024-04-25 20:37 | EX.ED.DYSGE1 ---
HPI History of Present Illness Chief Complaint: Abd Pain Detail of Chief Complaint: Sent in because of right lower quadrant pain by her fruit and vegetable inspector Informant: patient Onset/Context/Timing Onset: Days Context: Sudden Onset Timing: Continuous Quality: Pain Location: Near the inguinal ligament right side Current Severity: Mild Maximum Severity: Severe Worsened by: Palpation and movement Relieved by: Nothing Associated Symptoms Associated Symptoms: None Narrative Narrative: Patient is a 28-year-old who is 32 weeks gestation. She called her SYSTEMS NAVIGATOR because of pain right lower quadrant. Landscape Technician did not feel this was her ovary. Patient does not believe it is her appendix. She has had change in her appetite for the past 2 to 3 weeks because she was placed on metformin for gestational diabetes. She denies fever, chills night sweats. She denies vomiting or diarrhea. She does report frequency without urgency, hematuria or dysuria. She denies prior episode. She has no other complaints. Prior similar symptoms: No Recent Illness/Hospitalization: No PFSH PFSH Medical History Post depression Gestational diabetes Panic Nicotine use disorder OCD (obsessive compulsive disorder) Nipple pain Supervision of normal Otitis externa of right ear Family history of breast cancer in mother Anxiety Ear discomfort Complete PTSD (post-traumatic stress disorder) Anxiety Home Medications ?Medication ?Instructions ?Recorded ?Last Taken ?Type docosahexaenoic acid 200 mg 1 mg PO DAILY 11/10/23 03/19/24 08:00 History capsule ( DHA) ondansetron HCl 4 mg tablet 4 mg PO Q6H PRN nausea and 12/13/23 Unknown Rx vomiting #60 tabs hydroxyzine HCl 10 mg tablet 10 mg PO TID PRN anxiety 01/27/24 03/04/24 History fluoxetine 40 mg capsule 80 mg (2 x 40 mg) PO DAILY #180 02/26/24 03/19/24 21:11 Rx caps blood sugar diagnostic (Blood #120 ea 04/01/24 Unknown Rx Glucose Test strips) blood-glucose meter #1 ea 04/01/24 Unknown Rx lancets 30 gauge (Droplet Lancets) #200 ea 04/01/24 Unknown Rx ascorbic acid (vitamin C) 500 mg 500 mg PO DAILY 04/25/24 Unknown History tablet (C-500) cephalexin 500 mg capsule 500 mg PO Q6 #27 CAPSULES 04/25/24 Unknown Rx metformin 500 mg tablet 1,000 mg PO QHS 04/25/24 Unknown History Allergy/AdvReac Type Severity Reaction Status Date / Time Penicillins (PCN) AdvReac Nausea/Vom/ Verified 04/25/24 17:13 Diarrhea Family History Mother Breast cancer, Onset Age: 47 Grandmother Myocardial infarction Grandfather Myocardial infarction Surgical History Status post delivery Social History adopted: No household members: significant other housing: house number of children: 1 current occupational status: employed 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 current occupational exposures/hazards: No pets and animals: Yes (Not managing the litter boxes) pets and animals: cat(s) history of recent travel: No sexually active: Yes Smoking Status: Former smoker Electronic Cigarette Use: with nicotine and not used how long ago did patient quit smokin.5mo ago alcohol intake: current alcohol intake frequency: holidays/special occasions only details: not while substance use type: does not use well-balanced diet: about half the time caffeine: Yes Type: coffee Number of servings: 1 eating out: 1-3 times/week during the past year weight has: remained stable what type of physical activity do you participate in: none daniel/buddhism: None seatbelt use: always do you feel safe at home: Yes additional social history: Fiance: Lai RANDOLPH Diving Board Assembler ROS ROS ED Constitutional Constitutional ED: Denies chills, fever(s), subjective, sweats or weight loss Eyes Eyes: Denies blurry vision or change in vision Gastrointestinal Gastrointestinal: Denies abdominal pain, diarrhea, nausea or vomiting Genitourinary Genitourinary ED: Reports LMP (females 10-50) Details: Comment: (32 weeks gestation.) and urinary frequency; Denies dysuria or hematuria Musculoskeletal Musculoskeletal: Denies arthralgias or myalgias Integumentary Denies rash EXAM Physical Exam Const Vital Signs: 04/25/24 17:10 04/25/24 19:00 Temperature 98.2 F Temperature Source Temporal Pulse Rate 90 82 Respiratory Rate 16 16 Blood Pressure 130/69 H 119/66 Blood Pressure Mean 89 83 Pulse Ox 100 97 Oxygen Delivery Method Room Air Room Air Positive well nourished and well developed General Appearance ED: well developed and NAD HEENT Reports moist mucous membranes HEENT Narrative: Head is atraumatic and normocephalic. Ears normal. Nares patent Eyes PERRL and EOMs intact bilaterally General Eye ED: Negative for pale conjunctiva Resp normal respiratory effort Cardio regular rate and regular rhythm GI GI Narrative: There is tenderness near the medial aspect of the inguinal area near the inguinal ligament. In my opinion she has a palpable lymph node. It is mobile firm and tender. Edges are smooth. She does have evidence of folliculitis where she has shaved. Suspect this is the cause of the inguinal lymphadenopathy. Extremity normal to inspection Neuro oriented x3 and CN's II-XII intact bilaterally Sensorium / Orientation: alert Psych mental status grossly normal Skin Skin Narrative: Folliculitis pubis region with inguinal lymphadenopathy on the right MDM MDM MDM Narrative Medical decision making narrative: Clinically patient does not have appendicitis and there is no concern for pathology. Based on history physical exam patient has folliculitis with lymphadenopathy. CBC was obtained. White count is normal. Lab Data Attestation: I reviewed the patient's lab results. Labs: Laboratory Results - last 24 hr 04/25/24 17:53 WBC 8.0 RBC 3.55 L Hgb 11.1 L Hct 31.9 L MCV 89.9 MCH 31.3 MCHC 34.8 RDW Std Deviation 42.5 RDW Coeff of Caitlin 12.9 Plt Count 192 MPV 11.3 Immature Gran % (Auto) 0.600 Neut % (Auto) 75.5 H Lymph % (Auto) 17.1 L [place] % (Auto) 5.9 Eos % (Auto) 0.6 Baso % (Auto) 0.3 Absolute Neuts (auto) 6.0 Absolute Lymphs (auto) 1.36 Nucleated RBC % 0 Treatment and Re-Evaluation :: Patient was treated with cephalexin for 7 days. She reports allergy to penicillin which includes nausea vomiting diarrhea which is not an allergy. Discharge Plan Triage Chief Complaint: Abd Pain ED Provider: PaoloErasmo Dx/Rx/DC Orders Clinical Impression: Folliculitis, Obesity affecting , Gestational diabetes mellitus, Inguinal adenopathy Instructions: ED Folliculitis Prescriptions: New cephalexin 500 mg capsule 500 mg PO Q6 Qty: 27 0RF No Action DHA 200 mg capsule 1 mg PO DAILY Rx Instructions: one tablet ondansetron HCl 4 mg tablet 4 mg PO Q6H PRN (Reason: nausea and vomiting) Qty: 60 3RF fluoxetine 40 mg capsule 80 mg PO DAILY Qty: 180 1RF hydroxyzine HCl 10 mg tablet 10 mg PO TID PRN (Reason: anxiety) ascorbic acid (vitamin C) [C-500] 500 mg tablet 500 mg PO DAILY metformin 500 mg tablet 1,000 mg PO QHS (DME) Blood Glucose Test Strip See Rx Instructions .ROUTE .MEDSUPPLY Qty: 120 6RF Rx Instructions: Check blood sugars Fasting and 2 hours after breakfast, lunch, and dinner. (DME) blood-glucose meter Misc See Rx Instructions .ROUTE .MEDSUPPLY Qty: 1 0RF Rx Instructions: As directed (DME) lancets [Droplet Lancets] 30 gauge misc See Rx Instructions .ROUTE .MEDSUPPLY Qty: 200 6RF Rx Instructions: Check blood sugars fasting and 2 hours after breakfast, lunch, and supper. Primary Care Provider: Care Physician,No Primary Referrals: Landscape Technician [Other] - 04/29/24 Care Physician,No Primary [Primary Care Provider] - Print Language: Albanian Disposition Disposition: Home, Self Care
[2024-04-25 20:52] VITALS: BP 112/80; PULSE 68; RESP 18; TEMP 36.6; O2SAT 100
[2024-04-25] MEDS: Cephalexin 500 MG Capsule PO (20:52)
== END 2024-04-25 20:53 | disposition home or self-care (01) ==
PROVIDERS: Emergency Provider Emergency Medicine; Visit Provider Emergency Medicine
DX: O99.713 Diseases of the skin and subcutaneous tissue complicating pregnancy, third trimester (principal); L73.9 Follicular disorder, unspecified; O99.891 Other specified diseases and conditions complicating pregnancy; R59.0 Localized enlarged lymph nodes; Z3A.32 32 weeks gestation of pregnancy; O24.415 Gestational diabetes mellitus in pregnancy, controlled by oral hypoglycemic drugs; O99.213 Obesity complicating pregnancy, third trimester; E66.9 Obesity, unspecified; Z79.899 Other long term (current) drug therapy; Z87.891 Personal history of nicotine dependence
CPT/HCPCS: 85025; 99282; A4216

== ENCOUNTER 2024-04-29 02:12 | Outpatient (CLI) | payer OTHER, SELFPAY ==
[2024-04-29] VITALS (10 sets, daily range): BP systolic 110–123; BP diastolic 57–71; PULSE 74–94; RESP 16–24; TEMP 36.1–37.3; O2SAT 96–98; BMI 37.7
[2024-04-29] MEDS: Lactated Ringers 1,000 ML 999 ML IV (03:00)
[2024-04-29 03:13] LABS: Color, Urine Yellow (Yellow); Glucose, Dipstick Normal (Normal); Ketone-Dipstick Negative (Negative); Leukocyte Esterase-Dipstick 25 /ul (Negative); Nitrite-Dipstick Negative (Negative); Occult Blood-Urine 10 /ul (Negative); Protein-Dipstick 30 mg/dl (Negative); Specific Gravity, Urine 1.015 (1.002-1.030); Urine Bilirubin Dipstick Negative (Negative); Urine Clarity Cloudy (Clear); Urine Urobilinogen Normal (Normal); Urine pH 6.5 (5.0 - 8.0)
[2024-04-29] MEDS: Lactated Ringers 1,000 ML 150 ML IV ×2 (05:00→12:07)
[2024-04-29 05:09] LABS: Absolute Lymphocyte Count 2.33 X10^3/uL (0.83-4.51); Absolute Neutrophil Count 7.9 X10^3/uL (2.0-7.7); Basophil# 0.04 X10^3/uL; Basophil% 0.4 % (0-1); Eosinophil# 0.15 X10^3/uL; Eosinophils% 1.3 % (0-5); Hematocrit 35.8 % (37-47); Hemoglobin 12.2 g/dL (12.0-15.0); Lymphocyte # 2.33 X10^3/ul (0.83-4.51); Lymphocyte % 20.8 % (19-41); Mean Corp Hgb Conc 34.1 g/dL (32-36); Mean Corpuscular Volume 91.1 fL (81-99); Mean Platelet Vol. 12.3 fl (6.2-12.0); Monocyte# 0.71 X10^3/uL; Monocyte% 6.3 % (0-10); NRBC Flagged by Analyzer 0 % (0-5); Neutrophil # 7.94 X10^3/uL (2.7-7.7); Neutrophil % 70.8 % (47-70); Platelet Count 224 K/mm3 (150-450); RBC Distribution Width CV 12.9 % (11.6-14.6); RBC Distribution Width SD 43.1 fl (35.1-43.9); Red Blood Count 3.93 M/mm3 (4.2-5.4); White Blood Count 11.2 K/mm3 (4.4-11.0)
[2024-04-29] MEDS: NIFEdipine 30 MG Tablet PO (05:21)
[2024-04-29 05:48] LABS: ALB/GLOB Ratio 1.6 RATIO (0.9-2.4); AST(SGOT) 15 U/L (<=31); Alanine Aminotransfer ALT/SGPT 13 U/L (<=34); Albumin, Serum 3.6 g/dL (3.5-5.0); Alkaline Phosphatase 106 U/L (35-104); Anion Gap 13 (5-15); BUN 7 mg/dL (4-19); BUN/Creat Ratio 20.6 RATIO (10-20); Carbon Dioxide 18.1 mmol/L (21.0-32.0); Chloride 104 mmol/L (98-108); Creatinine, Serum 0.35 mg/dL (0.70-1.20); EST Glomerular Filtration Rate 141 (>60); Estimated Creatinine Clearance 231.35 ml/min (50-250); Globulin 2.3 g/dL (2.2-4.2); Glucose 82 mg/dL (70-99); Potassium 3.8 mmol/L (3.3-5.1); Protein, Total 5.8 g/dL (5.9-8.4); Sodium Level 135 mmol/L (133-145); Total Bilirubin 0.19 mg/dL (0.00-1.30)
--- NOTE | 2024-04-29 06:00 | US_ITS ---
EXAM: US Abdomen Complete CLINICAL INDICATION: ABDOMINAL PAIN TECHNIQUE: Real-time ultrasound of the abdomen with image documentation. COMPARISON: No relevant prior studies available. FINDINGS: LIVER: Hepatopetal blood flow main portal vein. Liver measures up to 15.7 cm. No intrahepatic bile duct dilation. GALLBLADDER: Negative Horvath's sign was reported by the adult parole officer. No gallstones. COMMON BILE DUCT: Unremarkable as visualized. No stones. No dilation. Common bile duct measures 0.5 cm in diameter. PANCREAS: Unremarkable as visualized. KIDNEYS: Unremarkable. No stones. No hydronephrosis. The right kidney measures 12.0 x 6.2 x 5.3 cm. The left kidney measures 11.6 x 5.6 x 7.3 cm. SPLEEN: Spleen measures up to 11.3 cm. AORTA: Unremarkable. No aneurysm. INFERIOR VENA CAVA: Unremarkable. OTHER FINDINGS: Urinary bladder appears normal for the size of the distension. Prevoid volume 44 cc. US/Abdomen Complete IMPRESSION: No acute findings in the abdomen. Reading Location: [facility]
--- NOTE | 2024-04-29 08:51 | US_ITS ---
EXAM: US Second or Third Trimester , Transabdominal CLINICAL INDICATION: DECELS TECHNIQUE: Real-time transabdominal obstetrical ultrasound of the maternal pelvis and a second or third trimester with image documentation. COMPARISON: No relevant prior studies available. FINDINGS: FETUS: Gestation age 32 weeks and 6 days gestation. HEART RATE: heart rate 140 beats per minute. PRESENTATION: Cephalic presentation. PLACENTA: Posterior. AMNIOTIC FLUID: Unremarkable. Amniotic fluid index (SCOTT) is 9.2 cm. MATERNAL: UTERUS: Unremarkable. No myometrial mass. CERVIX: Unremarkable as visualized. Closed. FREE FLUID: No free fluid. OTHER FINDINGS: BPP 8/8. US/Biophysical Prof W/O Non Stres IMPRESSION: BPP 8/8. Reading Location[facility]
[2024-04-29] MEDS: Cephalexin 500 MG Capsule PO ×3 (08:59→20:58)
[2024-04-29 09:21] LABS: Bedside Glucose 78 mg/dL (74-106)
[2024-04-29] MEDS: Betamethasone/Betamethasone 30 MG/5 ML Vial 12 MG IM (09:53)
[2024-04-29] MEDS: Acetaminophen 500 MG Tablet 1000 MG PO ×2 (15:08→22:43)
--- NOTE | 2024-04-29 17:33 | OB.TRI.HP_ITS ---
HPI - General HPI Narrative LESLY RAMSEY, is a 28 y/o @ 32 weeks 6 days who presented to L&D early this am (4:30) with contractions and RLQ pain. Cx was noted to be internally closed by the nurse. The patient is on keflex since Monday for folliculitis with lymph node involvement . CMP and CBC were normal. The patient has a history of a 37 week abruption. During observation her tracing showed 3 late decelerations between the hours of 7:00 am and 5:00 pm. She has been given IV fluids today and contractions slowed down. She was also given a dose of steroids. She is here for observation until at least her second dose of celestone. Maternal Data Information NADEGE Calculator Estimated Delivery Date Method Current WG Current Estimate 06/18/24 LMP (Certain) 32w 6d PFSH PFSH Medical History Post depression Gestational diabetes Panic Nicotine use disorder OCD (obsessive compulsive disorder) Nipple pain Supervision of normal Otitis externa of right ear Family history of breast cancer in mother Anxiety Ear discomfort Complete PTSD (post-traumatic stress disorder) Anxiety Home Medications ?Medication ?Instructions ?Recorded ?Last Taken ?Type docosahexaenoic acid 200 mg 1 mg PO DAILY 04/28/24 History capsule ( DHA) ondansetron HCl 4 mg tablet 4 mg PO Q6H PRN nausea and 12/13/23 Unknown Rx vomiting #60 tabs hydroxyzine HCl 10 mg tablet 10 mg PO TID PRN anxiety 01/27/24 03/04/24 History fluoxetine 40 mg capsule 80 mg (2 x 40 mg) PO DAILY a nxiety 02/26/24 04/28/24 Rx #180 caps blood sugar diagnostic (Blood #120 ea 04/01/24 Unknown Rx Glucose Test strips) blood-glucose meter #1 ea 04/01/24 Unknown Rx lancets 30 gauge (Droplet Lancets) #200 ea 04/01/24 Un known Rx ascorbic acid (vitamin C) 500 mg 500 mg PO DAILY suppl ement 04/25/24 04/27/24 History tablet (C-500) cephalexin 500 mg capsule 500 mg PO Q6 abd pain #27 CA PSULES 04/25/24 04/28/24 Rx metformin 500 mg tablet 1,000 mg PO QHS GDM 04/25/24 04/28/24 History Allergy/AdvReac Type Severity Reaction Status Date / Time Penicillins (PCN) AdvReac Nausea/Vom/ Verified 04/29/24 02:36 Diarrhea Family History Mother Breast cancer, Onset Age: 47 Grandmother Myocardial infarction Grandfather Myocardial infarction Surgical History Status post delivery Social History adopted: No household members: significant other housing: house number of children: 1 current occupational status: employed 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 current occupational exposures/hazards: No pets and animals: Yes (Not managing the litter boxes) pets and animals: cat(s) history of recent travel: No sexually active: Yes Smoking Status: Former smoker Electronic Cigarette Use: with nicotine and not used how long ago did patient quit smokin.5mo ago alcohol intake: current alcohol intake frequency: holidays/special occasions only details: not while substance use type: does not use well-balanced diet: about half the time caffeine: Yes Type: coffee Number of servings: 1 eating out: 1-3 times/week during the past year weight has: remained stable what type of physical activity do you participate in: none daniel/moravian: None seatbelt use: always do you feel safe at home: Yes additional social history: Fiance: Lai - [employer] History 3 Elective abortions Hx Para 1 Spontaneous abortions 1 Hx # Term Pregnancies Ectopic pregnancies Hx # Pregnancies Multiple births # of living children 1 Past Pregnancies Del. Date Name GA/Weeks Outcome Route Bth Weight Gen Labor Lgth Anesthesia Del Locatn Provider FOB Unknown 2020 Chemical 04/08/22 [facility] 39 live - full term 7lbs 10 .2 oz Male epidural [facility] NikitaV Lai Delivery Date: 04/08/22 Last Updated by: Elvira Ceron, RN See problem list for complications Visit Details Expected Delivery Route/Plan plan RLTCS patient counseled regarding risks/benefits of trial of labor versus repeat blair arean. ACOG/uptodate education given to patient. 37 % likelihood of success per calculator TOLAC consent form signed: [] Patient wants R C/S Plans Covid status: [] Flu vaccine: [] Tdap vaccine: [] Rhogam: [] LARC form signed: [] Problem list reviewed and updated with the most current plan of care details and appropriate orders placed. Relevant counseling for the gestational age provided. Continue routine care and follow up unless otherwise noted in visit notes/problem list details OB Flowsheet Initial Weight: Not Recorded Date -?-?-?-?-?-?-?-?-?-?-?-?- EGA Weight BP Urine Prot -?-?-?-?-?-?-?-?-?-?-?-?- Glucose FHR FuHt Pres Dilation -?-?-?-?-?-?-?-?-?-?-?-?- Effaced St Visit Note 12/13/23 -?-?-?-?-?-?-?-?-?-?-?-?- 13w 1d 179 lb 8 oz 103/70 Nega tive -?-?-?-?-?-?-?-?-?-?-?-?- Negative 147 -?-?-?-?-?-?-?-?-?-?-?-?- JV- CRL consiste nt with LMP. long discussion about . calculated at 37% success. 01/10/24 -?-?-?-?-?-?-?-?-?-?-?-?- 17w 1d 178 lb 8 oz 116/68 Nega tive -?-?--?-?-?-?-?-?-?-?-?-?- Negative 153 -?-?-?-?-?-?-?-?-?-?-?-?- MH-No VB, LOF. N o flutters yet. Nausea improving. MFM US scheduled 01/2902/05/24 -?-?--?-?-?-?-?-?-?-?-?-?- 20w 6d 180 lb 4 oz 108/64 Nega tive -?-?-?-?-?-?-?-?-?-?-?-?- Negative 146 -?-?-?-?-?-?-?-?-?-?-?-?- -Had brown dis charge this weekend. No further bleeding. Confirmed complete previa. Reviewed pelvic rest, lifting restrictions. Rpt US 28 wk. 03/06/24 -?-?-?-?-?-?-?-?-?-?-?-?- 25w 1d 186 lb 6 oz 110/73 Trac e -?-?-?-?-?-?-?-?-?-?-?-?- Negative 161 27 -?-?-?-?-?-?-?-?-?-?-?-?- JV- only complai nt is fatigue. glucola and ultrasound coming up next coupel of weeks. no lof, vaginal bleeding, or dec fm. 03/28/24 -?-?-?-?-?-?-?-?-?-?-?-?- 28w 2d 193 lb 108/72 Trace -?-?-?-?-?-?-?-?-?-?-?-?- 100 g/dL 1,455 145 29 -?-?-?-?-?-?-?-?-?-?-?-?- SM- no vb lof go od fm no regular ctx 04/09/24 -?-?-?-?-?-?-?-?-?-?-?-?- 30w 0d 193 lb 4 oz 115/78 -?-?-?-?-?-?-?-?-?-?-?-?- 140 30 -?-?-?-?-?-?-?-?-?-?-?-?- JV- fasting leve ls are 105 and 102, starting metformin 500 mg qhs. has director machine appt today. plan twice weekly nsts. will add bpp to the 2 growth scan appts to cut down on 2 nsts 04/23/24 -?-?-?-?-?-?-?-?-?-?-?-?- 32w 0d 195 lb 125/75 Negative -?-?-?-?-?-?-?-?-?-?--?-?- Negative 130 -?-?-?-?-?-?-?-?-?-?-?-?- SM- increasing m etformin to 1000mg at night no vb lof good fm no reuglar ctx some headaches nl bps 04/26/24 -?-?-?-?-?-?-?-?-?-?-?-?- 32w 3d 194 lb 6 oz 115/78 Nega tive -?-?-?-?-?-?-?-?-?-?-?-?- Negative 125 -?-?-?-?-?-?-?-?-?-?-?-?- KW- NST only. re active ROS Constitutional Constitutional: Reports systems reviewed and no addt'l complaints, except as documented Gastrointestinal Gastrointestinal: Denies bloating, constipation, cramping, diarrhea, nausea or vomiting Genitourinary Genitourinary: Reports other Details: Denies vaginal odor, vaginal bleeding, or vaginal discharge ; Denies difficulty urinating or flank pain Physical Exam HEENT normocephalic Resp normal respiratory effort and normal air movement no CVA tenderness Extremity normal to inspection General Extremity: edema bilateral (trace ) NST FHR Rate Baby A Baseline: 120-130 Variability:: Moderate Accelerations:: 15 x 15 Decelerations:: Late (3 times from 7 am to 5pm. ) NST Reactive:: Yes FHR Category:: Category I Uterine Activity:: currently occasional contractions Assessment & Plan (1) heart rate decelerations affecting management of mother: (2) Gestational diabetes mellitus: COMMENT: metformin 1000mg at night. twice weekly nsts delivery at 39 weeks (3) contractions: (4) Obesity affecting : QUALIFIERS: Trimester: second trimester Obesity type affecting : unspecified obesity Qualified Code(s): O99.212 - Obesity complicating , second trimester COMMENT: HgBA1C ordered in NOB labs (5) H/O depression, currently : COMMENT: on fluoxetine. stable (6) H/O nicotine dependence: COMMENT: Stopped in September 2023 (7) H/O gestational diabetes in prior , currently : COMMENT: hbga1c added (8) H/O: : COMMENT: x1, 2022 - RLTCS scheduled for 06/11 with JV (9) Supervision of high-risk : QUALIFIERS: Trimester: second trimester Qualified Code(s): O09.92 - Supervision of high risk , unspecified, second trimester COMMENT: [id number], NADEGE 06/18/24, [facility]: Shaquille Massey: Lai (10) : QUALIFIERS: Weeks of gestation: 32 weeks Qualified Code(s): Z3A.32 - 32 weeks gestation of COMMENT: Discussed genetic/carrier testing - declined (11) Left lower quadrant abdominal pain affecting : (12) Panic: (13) OCD (obsessive compulsive disorder): QUALIFIERS: Obsessive-compulsive disorder type: mixed obsessional thoughts and acts Qualified Code(s): F42.2 - Mixed obsessional thoughts and acts (14) Depression: QUALIFIERS: Depression Type: unspecified Qualified Code(s): F32.A - Depression, unspecified COMMENT: treated with Prozac/stable (15) Personal history of scoliosis: COMMENT: s curve in spine (16) Anxiety: PLAN: Plan plan to continue observation through the night. will continue home meds and order fasting and 2 hr post prandials glucose Charges/Coding Multi Select Codes Visit Charges Office Visit/Consults: 32933 OV L3 Est 20min Urinary/Genital Urinary/Genital CPT Codes: 18425-29 non-stress test Interp
[2024-04-29] MEDS: Fluoxetine HCl 40 MG CAPSULE 80 MG PO (19:48)
[2024-04-29] MEDS: 0.9% Saline Lock 10 ML Syringe IV (20:58)
[2024-04-29] MEDS: hydrOXYzine 10 MG Tablet PO (20:58)
[2024-04-29] MEDS: metFORMIN HCl 1,000 MG Tablet 1000 MG PO (20:59)
[2024-04-29] MEDS: NIFEdipine 10 MG Capsule PO (20:59)
[2024-04-29 21:09] LABS: Bedside Glucose 110 mg/dL (74-106)
[2024-04-29] MEDS: Calcium Carbonate 500 MG Tablet 1000 MG PO (21:48)
[2024-04-30 00:27] VITALS: BP 120/56; PULSE 103; RESP 16; TEMP 36.9; O2SAT 97
[2024-04-30 01:41] VITALS: PULSE 92; O2SAT 97
[2024-04-30 01:46] VITALS: PULSE 105; O2SAT 97
[2024-04-30] MEDS: Cephalexin 500 MG Capsule PO ×2 (03:21→08:10)
[2024-04-30 03:26] VITALS: BP 112/64; PULSE 108; RESP 16; TEMP 36.7
[2024-04-30 06:15] LABS: Bedside Glucose 108 mg/dL (74-106)
[2024-04-30 07:29] VITALS: BP 117/70; PULSE 86
[2024-04-30 07:30] VITALS: PULSE 85; O2SAT 99
[2024-04-30] MEDS: NIFEdipine 10 MG Capsule PO (07:52)
[2024-04-30] MEDS: 0.9% Saline Lock 10 ML Syringe IV (07:52)
[2024-04-30] MEDS: Betamethasone/Betamethasone 30 MG/5 ML Vial 12 MG IM (07:52)
--- NOTE | 2024-04-30 08:34 | NURSING ---
Report called to Rocio OLIVO at [facility], update from our alumnae secretary transport called to say they would be at 0920.
--- NOTE | 2024-04-30 14:31 | PN.OBGYN_ITS ---
Subjective Subjective Patient doing well without complaints. Tolerating PO. Ambulating and voiding without difficulty. Feeding well. Denies chest pain, shortness of breath, calf pain/swelling, fevers, chills, lightheadedness. Objective Data Objective Data Vital Signs: Vital Signs Temp Pulse Resp BP Pulse Ox 98.1 F 85 16 117/70 99 04/30/24 03:26 04/30/24 07:30 04/30/24 03:26 04/30/24 07:29 04/30/24 07:30 Weight: 193 lb 3.2 oz Body Mass Index (BMI) 37.7 Intake & Output: Intake and Output for Last 24 Hours 04/28/24 04/29/24 04/30/24 23:59 23:59 23:59 Intake Total 2957.5 / 2957.5 Balance 2957.5 / 2957.5 Lab / Micro Data 04/29/24 03:00 04/29/24 04:58 Labs: Laboratory Results - last 24 hr 04/29/24 20:40: POC Glucose 110 H 04/30/24 05:57: POC Glucose 108 H ROS Constitutional Constitutional: Denies chills, fatigue, fever(s), poor appetite or weakness Eyes Eyes: Denies blurry vision, change in vision, seeing flashes or spots in vision ENT HEENT: Denies dizziness, headache(s), loss taste/smell or sore throat Cardiovascular Cardiovascular: Denies chest pain, dizziness, dyspnea, irregular heart rhythm, palpitations or rapid heart rate Respiratory/Chest Respiratory/Chest: Denies chest tightness, cough, dyspnea or breast pain Gastrointestinal Gastrointestinal: Denies abdominal pain, constipation or vomiting Genitourinary Genitourinary: Denies dysuria or flank pain Musculoskeletal Musculoskeletal: Denies difficulty walking, joint pain, limited range of motion or numbness Neurologic Neurologic: Denies abnormal movements, abnormal speech, dizziness, numbness, seizure-like activity or syncope Psychiatric Psychiatric: Denies anxiety, behavioral changes, change in appetite, confusion, depression or suicidal thoughts Physical Exam Const alert, oriented x3 and no apparent distress General Appearance: cooperative and comfortable Resp normal respiratory effort Cardio regular rate GI Palpation: soft Back/Spine no CVA tenderness and thoraco-lumbar ROM normal Extremity normal to inspection, no clubbing, cyanosis or edema, no calf tenderness and no pedal edema Psych mental status grossly normal, thought process normal, cooperative, affect normal, speech normal, activity/motor behavior normal, denies homicidal ideation and denies suicidal ideation NST FHR Rate Baby A Baseline: 120-130 Variability:: Moderate Accelerations:: 15 x 15 Decelerations:: Late and Prolonged NST Reactive:: Yes FHR Category:: Category II Uterine Activity:: irregular contractions that are anywhere from 2 minutes to 30 minutes apart. Assessment & Plan (1) heart rate decelerations affecting management of mother: (2) Inguinal adenopathy: (3) Folliculitis: (4) Polyhydramnios affecting : COMMENT: Mild. Recheck SCOTT 4 wk (5) Gestational diabetes mellitus: COMMENT: metformin 1000mg at night. twice weekly nsts delivery at 39 weeks (6) contractions: (7) Obesity affecting : QUALIFIERS: Trimester: second trimester Obesity type affecting : unspecified obesity Qualified Code(s): O99.212 - Obesity complicating , second trimester COMMENT: HgBA1C ordered in NOB labs (8) H/O depression, currently : COMMENT: on fluoxetine. stable (9) H/O nicotine dependence: COMMENT: Stopped in September 2023 (10) H/O gestational diabetes in prior , currently : COMMENT: hbga1c added (11) H/O: : COMMENT: 2022 - RLTCS scheduled for 06/11 with JV (12) Supervision of high-risk : QUALIFIERS: Trimester: second trimester Qualified Code(s): O09.92 - Supervision of high risk , unspecified, second trimester COMMENT: [id number], NADEGE 06/18/24, [facility]: Shaquille Massey: Lai (13) : QUALIFIERS: Weeks of gestation: 32 weeks Qualified Code(s): Z 3A.32 - 32 weeks gestation of COMMENT: Discussed genetic/carrier testing - declined (14) Left lower quadrant abdominal pain affecting : (15) Panic: (16) OCD (obsessive compulsive disorder): QUALIFIERS: Obsessive-compulsive disorder type: mixed obsessional thoughts and acts Qualified Code(s): F42.2 - Mixed obsessional thoughts and acts (17) Depression: QUALIFIERS: Depression Type: unspecified Qualified Code(s): F32.A - Depression, unspecified COMMENT: treated with Prozac/stable (18) Personal history of scoliosis: COMMENT: s curve in spine (19) Anxiety: PLAN: Plan 3 decels over night and one prolonged decel down to 50's x 6 minutes. Just this am had 2 more late decelerations. after discussion with [facility], decision made to transport to [place] for possible delivery to avoid mom and baby.
== END 2024-04-30 09:05 | disposition home or self-care (01) ==
LOC: WPOUT 02:15 → WP 02:15
PROVIDERS: Referring Provider Registered Nurse; Visit Provider Registered Nurse
DX: O76 Abnormality in fetal heart rate and rhythm complicating labor and delivery (principal); F60.5 Obsessive-compulsive personality disorder; O34.211 Maternal care for low transverse scar from previous cesarean delivery; O26.893 Other specified pregnancy related conditions, third trimester; R10.31 Right lower quadrant pain; R10.32 Left lower quadrant pain; O99.343 Other mental disorders complicating pregnancy, third trimester; O24.415 Gestational diabetes mellitus in pregnancy, controlled by oral hypoglycemic drugs; O99.213 Obesity complicating pregnancy, third trimester; Z3A.32 32 weeks gestation of pregnancy; Z87.891 Personal history of nicotine dependence; Z79.899 Other long term (current) drug therapy
CPT/HCPCS: 96360; 96361; 36415; 59025; 59050; 76700; 76819; 80053; 81002; 82962; 85025; 87086; 96372; A4216; J0702

== ENCOUNTER 2024-05-09 17:10 | Outpatient (CLI) | payer OTHER, SELFPAY ==
[2024-05-09 17:20] VITALS: BP 138/68; PULSE 107
[2024-05-09 17:29] VITALS: BMI 36.8
[2024-05-09 17:49] LABS: Color, Urine Yellow (Yellow); Glucose, Dipstick Normal (Normal); Ketone-Dipstick 50 mg/dl (Negative); Leukocyte Esterase-Dipstick 25 /ul (Negative); Nitrite-Dipstick Negative (Negative); Occult Blood-Urine 10 /ul (Negative); Protein-Dipstick 30 mg/dl (Negative); Urine Bilirubin Dipstick Negative (Negative); Urine Clarity Cloudy (Clear); Urine Urobilinogen 1 mg/dl (Normal)
[2024-05-09] MEDS: Lactated Ringers 500 ML 999 ML IV (18:40)
[2024-05-09] MEDS: Acetaminophen 500 MG Tablet 1000 MG PO (19:03)
[2024-05-09 19:26] VITALS: BP 119/69; PULSE 81; RESP 16; TEMP 37.1; O2SAT 98
[2024-05-09 20:17] LABS: Absolute Lymphocyte Count 1.77 X10^3/uL (0.83-4.51); Absolute Neutrophil Count 7.5 X10^3/uL (2.0-7.7); Basophil# 0.02 X10^3/uL; Basophil% 0.2 % (0-1); Eosinophil# 0.08 X10^3/uL; Eosinophils% 0.8 % (0-5); Hematocrit 33.7 % (37-47); Hemoglobin 11.8 g/dL (12.0-15.0); Lymphocyte # 1.77 X10^3/ul (0.83-4.51); Lymphocyte % 17.6 % (19-41); Mean Corpuscular Hgb 31.5 pg (27.0-32.0); Mean Corpuscular Volume 89.9 fL (81-99); Mean Platelet Vol. 11.5 fl (6.2-12.0); Monocyte# 0.61 X10^3/uL; Monocyte% 6.1 % (0-10); NRBC Flagged by Analyzer 0 % (0-5); Neutrophil # 7.52 X10^3/uL (2.7-7.7); Neutrophil % 74.8 % (47-70); Platelet Count 194 K/mm3 (150-450); RBC Distribution Width CV 13.2 % (11.6-14.6); RBC Distribution Width SD 43.1 fl (35.1-43.9); Red Blood Count 3.75 M/mm3 (4.2-5.4); White Blood Count 10.1 K/mm3 (4.4-11.0)
--- NOTE | 2024-05-09 23:32 | OB.TRI.NOTE ---
HPI - General HPI Narrative LESLY RAMSEY, is a 28 y/o @ 34 weeks 2 days who presents to L&D with contractions. PFSH PFSH Medical History (Updated 05/11/24 @ 00:05 by Kristi Gibson) Post depression Gestational diabetes Panic Nicotine use disorder OCD (obsessive compulsive disorder) Nipple pain Supervision of normal Otitis externa of right ear Family history of breast cancer in mother Anxiety Ear discomfort Complete PTSD (post-traumatic stress disorder) Anxiety Home Medications ?Medication ?Instructions ?Recorded ?Last Taken ?Type docosahexaenoic acid 200 mg 1 mg PO DAILY 11/10/23 05/09/24 21:00 History capsule ( DHA) 200 mg ondansetron HCl 4 mg tablet 4 mg PO Q6H PRN nausea and 12/13/23 Unknown Rx vomiting #60 tabs hydroxyzine HCl 10 mg tablet 10 mg PO TID PRN anxiety 01/27/24 05/08/24 21:00 History 10 mg fluoxetine 40 mg capsule 80 mg (2 x 40 mg) PO DAILY anxiety 02/26/24 05/09/24 21:00 Rx #180 caps 40 mg blood sugar diagnostic (Blood #120 ea 04/01/24 Unknown Rx Glucose Test strips) blood-glucose meter #1 ea 04/01/24 Unknown Rx lancets 30 gauge (Droplet Lancets) #200 ea 04/01/24 Unknown Rx ascorbic acid (vitamin C) 500 mg 500 mg PO DAILY supplement 04/25/24 05/09/24 21:00 History tablet (C-500) 500 mg metformin 500 mg tablet 1,000 mg PO QHS GDM 04/25/24 05/09/24 21:00 History 500 mg ibuprofen 800 mg tablet 800 mg PO Q8H PRN pain #30 tabs 05/10/24 Unknown Rx oxycodone-acetaminophen 5 mg-325 1 tab PO Q4H PRN pain 7 days #20 05/10/24 Unknown Rx mg tablet (Percocet) tabs Allergy/AdvReac Type Severity Reaction Status Date / Time Penicillins (PCN) AdvReac Nausea/Vom/ Verified 05/10/24 12:15 Diarrhea Family History Mother Breast cancer, Onset Age: 47 Grandmother Myocardial infarction Grandfather Myocardial infarction Surgical History (Updated 05/11/24 @ 00:05 by Kristi Gibson) Status post delivery Social History adopted: No household members: significant other housing: house number of children: 1 current occupational status: employed 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 occupational exposures/hazards: No pets and animals: Yes (Not managing the litter boxes) pets and animals: cat(s) history of recent travel: No sexually active: Yes Smoking Status: Former smoker Electronic Cigarette Use: with nicotine and not used how long ago did patient quit smokin.5mo ago alcohol intake: current alcohol intake frequency: holidays/special occasions only details: not while substance use type: does not use well-balanced diet: about half the time caffeine: Yes Type: coffee Number of servings: 1 eating out: 1-3 times/week during the past year weight has: remained stable what type of physical activity do you participate in: none daniel/sabianism: None seatbelt use: always do you feel safe at home: Yes additional social history: Fiance: Lai [employer] History 3 Elective abortions Hx Para 2 Spontaneous abortions 1 Hx # Term Pregnancies 2 Ectopic pregnancies Hx # Pregnancies 1 Multiple births # of living children 2 Past Pregnancies Del. Date Name GA/Weeks Outcome Route Bth Weight Infant Gen Labor Lgth Anesthesia Del Locatn Provider FOB Unknown 2020 [employer] 04/08/22 [facility] 39 live - full term 7lbs 10.2 oz Male epidural [facility] Lai 05/10/24 [facility] 34 live - Male spinal [facility] Fiance: Lai Delivery Date: 04/08/22 Last Updated by: Elvira Ceron RN See problem list for complications Delivery Date: 05/10/24 Last Updated by: Elvira Ceron RN Repeat Csec ROS Constitutional Constitutional: Reports systems reviewed and no addt'l complaints, except as documented Gastrointestinal Gastrointestinal: Denies bloating, constipation, cramping, diarrhea, nausea or vomiting Genitourinary Genitourinary: Reports other Details: Denies vaginal odor, vaginal bleeding, or vaginal discharge ; Denies difficulty urinating or flank pain NST FHR Rate Baby A Baseline: 140 Variability:: Moderate Accelerations:: 15 x 15 Decelerations:: None NST Reactive:: Yes FHR Category:: Category I Assessment & Plan (1) contractions: (2) H/O gestational diabetes in prior , currently : COMMENT: hbga1c added (3) Supervision of high-risk : QUALIFIERS: Trimester: second trimester Qualified Code(s): O09.92 - Supervision of high risk , unspecified, second trimester COMMENT: [id number], NADEGE 06/18/24, [facility]: Julianna Massey PLAN: Plan patient was monitored for 207 min. Her cervix did not change and contractions improved (decreased) with drinking fluids. Charges/Coding Multi Select Codes Urinary/Genital Urinary/Genital CPT Codes: 25872-01 non-stress test Interp
== END 2024-05-09 21:00 | disposition home or self-care (01) ==
LOC: WPOUT 17:12 → WP 17:12
PROVIDERS: Referring Provider Obstetrics & Gynecology; Visit Provider Obstetrics & Gynecology
DX: O47.03 False labor before 37 completed weeks of gestation, third trimester (principal); Z3A.34 34 weeks gestation of pregnancy; Z79.84 Long term (current) use of oral hypoglycemic drugs; Z79.899 Other long term (current) drug therapy; Z87.891 Personal history of nicotine dependence; Z86.32 Personal history of gestational diabetes
CPT/HCPCS: 96360; 36415; 59025; 59050; 81002; 85025; 87086; 87088; 99221; G0378

== ENCOUNTER 2024-05-10 14:00 | Inpatient (IN) | payer OTHER, SELFPAY ==
[2024-05-10] VITALS (16 sets, daily range): BP systolic 109–140; BP diastolic 60–87; PULSE 77–95; RESP 15–21; TEMP 36.1–36.9; O2SAT 97–100; BMI 37.3
[2024-05-10] MEDS: Lactated Ringers 1,000 ML 999 ML IV (14:15)
[2024-05-10 14:39] LABS: Absolute Neutrophil Count 7.2 X10^3/uL (2.0-7.7); Basophil# 0.04 X10^3/uL; Basophil% 0.4 % (0-1); Eosinophil# 0.07 X10^3/uL; Eosinophils% 0.7 % (0-5); Hematocrit 37.4 % (37-47); Hemoglobin 12.8 g/dL (12.0-15.0); Lymphocyte % 15.9 % (19-41); Mean Corp Hgb Conc 34.2 g/dL (32-36); Mean Corpuscular Hgb 31.1 pg (27.0-32.0); Mean Platelet Vol. 12.1 fl (6.2-12.0); Monocyte# 0.54 X10^3/uL; Monocyte% 5.7 % (0-10); NRBC Flagged by Analyzer 0 % (0-5); Neutrophil # 7.22 X10^3/uL (2.7-7.7); Neutrophil % 76.7 % (47-70); Platelet Count 207 K/mm3 (150-450); RBC Distribution Width CV 13.1 % (11.6-14.6); RBC Distribution Width SD 43.2 fl (35.1-43.9); Red Blood Count 4.11 M/mm3 (4.2-5.4); White Blood Count 9.4 K/mm3 (4.4-11.0)
[2024-05-10] MEDS: Sodium Citrate/Citric Acid 30 ML UDC PO (14:50)
[2024-05-10] MEDS: Acetaminophen 500 MG Tablet 1000 MG PO ×2 (14:50→20:59)
[2024-05-10] MEDS: Clindamycin 900 MG/50 ML BAG 75 MG IV (15:00)
[2024-05-10 15:01] LABS: Bedside Glucose 80 mg/dL (74-106)
[2024-05-10 15:19] LABS: Syphilis Antibodies Nonreactive (Nonreactive)
[2024-05-10] MEDS: Gentamicin IV 310 MG in Dextrose 5%-Water (50mL Bag) 50 ML 100 MG IVPB (15:20)
[2024-05-10] MEDS: Oxytocin 15 Units/NS 250ml 15 UNITS/250 ML IV.SOLN 83 UNITS IV (16:23)
--- NOTE | 2024-05-10 16:30 | HP.PCM.OB_ITS ---
HPI - General General Date of Admission: 05/10/24 HPI Narrative LESLY RAMSEY, is a 28 y/o @ 34 weeks 2 days who was sent to L&D for variable decel in our office on NST. NST's are being performed for decelerations that started occuring around 32 weeks. The patient has been monitored on L&D for several days between 32 and 33 weeks and then was transported to [facility] at 33 weeks for prolonged decelerations and late decelerations that were intermittent. There they watched her for 24 hours and performed growth scans and monitoring. They did not observe decelerations at that time. The patient has also been in and out of L&D for frequent triage visits due to contraction and back pain. She received 2 doses of Celestone between 32 and 33 weeks. While in triage today at 1235 she had another late deceleration and states I can't do this anymore, I am too nervous that something is wrong I agreed with her that after 34 weeks and after steroids, there is little to gain and a lot to lose if we continue just observation. The plan is for a repeat section today. Maternal Data Information NADEGE Calculator Estimated Delivery Date Method Current WG Current Estimate 06/18/24 LMP (Certain) 34w 3d [facility] Medical History Post depression Gestational diabetes Panic Nicotine use disorder OCD (obsessive compulsive disorder) Nipple pain Supervision of normal Otitis externa of right ear Family history of breast cancer in mother Anxiety Ear discomfort Complete PTSD (post-traumatic stress disorder) Anxiety Home Medications ?Medication ?Instructions ?Recorded ?Last Taken ?Type docosahexaenoic acid 200 mg 1 mg PO DAILY 05/09/24 21:00 History capsule ( DHA) 200 mg ondansetron HCl 4 mg tablet 4 mg PO Q6H PRN nausea and 12/13/23 Unknown Rx vomiting #60 tabs hydroxyzine HCl 10 mg tablet 10 mg PO TID PRN anxiety 01/27/24 05/08/24 21:00 History 10 mg fluoxetine 40 mg capsule 80 mg (2 x 40 mg) PO DAILY a nxiety 02/26/24 05/09/24 21:00 Rx #180 caps 40 mg blood sugar diagnostic (Blood #120 ea 04/01/24 Unknown Rx Glucose Test strips) blood-glucose meter #1 ea 04/01/24 Unknown Rx lancets 30 gauge (Droplet Lancets) #200 ea 04/01/24 Un known Rx ascorbic acid (vitamin C) 500 mg 500 mg PO DAILY suppl ement 04/25/24 05/09/24 21:00 History tablet (C-500) 500 mg metformin 500 mg tablet 1,000 mg PO QHS GDM 04/25/24 05/09/24 21:00 History 500 mg insulin NPH isoph U-100 human 100 10 unit (0.1 mL) sub cut QPM #15 mL 05/07/24 Unknown Rx unit/mL (3 mL) subcutaneous pen (Humulin N NPH U-100 Insulin KwikPen) Allergy/AdvReac Type Severity Reaction Status Date / Time Penicillins (PCN) AdvReac Nausea/Vom/ Verified 05/10/24 12:15 Diarrhea Family History Mother Breast cancer, Onset Age: 47 Grandmother Myocardial infarction Grandfather Myocardial infarction Surgical History Status post delivery Social History adopted: No household members: significant other housing: house number of children: 1 current occupational status: employed 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 current occupational exposures/hazards: No pets and animals: Yes (Not managing the litter boxes) pets and animals: cat(s) history of recent travel: No sexually active: Yes Smoking Status: Former smoker Electronic Cigarette Use: with nicotine and not used how long ago did patient quit smokin.5mo ago alcohol intake: current alcohol intake frequency: holidays/special occasions only details: not while substance use type: does not use well-balanced diet: about half the time caffeine: Yes Type: coffee Number of servings: 1 eating out: 1-3 times/week during the past year weight has: remained stable what type of physical activity do you participate in: none daniel/zoroastrian: None seatbelt use: always do you feel safe at home: Yes additional social history: Fiance: Lai Liconaer Climber History 3 Elective abortions Hx Para 1 Spontaneous abortions 1 Hx # Term Pregnancies Ectopic pregnancies Hx # Pregnancies Multiple births # of living children 1 Past Pregnancies Del. Date Name GA/Weeks Outcome Route Bth Weight Infant Gen Labor Lgth Anesthesia Del Locatn Provider FOB Unknown 2020 Chemical 04/08/22 Bryson Monge 39 live - full term 7lbs 10 .2 oz Male epidural [facility] Lai Delivery Date: 04/08/22 Last Updated by: Elvira Ceron RN See problem list for complications Visit Details Expected Delivery Route/Plan plan RLTCS patient counseled regarding risks/benefits of trial of labor versus repeat . ACOG/uptodate education given to patient. 37 % likelihood of success per calculator TOLAC consent form signed: [] Patient wants R C/S Plans Covid status: [] Flu vaccine: [] Tdap vaccine: [] Rhogam: [] LARC form signed: [] Problem list reviewed and updated with the most current plan of care details and appropriate orders placed. Relevant counseling for the gestational age provided. Continue routine care and follow up unless otherwise noted in visit notes/problem list details OB Flowsheet Initial Weight: 179 lb Date -?-?-?-?-?-?-?-?-?-?-?-?- EGA Weight BP Urine Prot -?-?-?-?-?-?-?-?-?-?-?-?- Glucose FHR FuHt Pres Dilation -?-?-?-?-?-?-?-?-?-?-?-?- Effaced St Visit Note 12/13/23 -?-?-?-?-?-?-?-?-?-?-?-?- 13w 1d 179 lb 8 oz (+8 oz) 103/70 Negative -?-?-?-?-?-?-?-?-?-?-?-?- Negative 147 -?-?-?-?-?-?-?-?-?-?-?-?- JV- CRL consiste nt with LMP. long discussion about . calculated at 37% success. 01/10/24 -?-?-?-?-?-?-?-?-?-?-?-?- 17w 1d 178 lb 8 oz (-8 oz) 116/68 Negative -?-?-?-?-?-?-?-?-?-?-?-?- Negative 153 -?-?-?-?-?-?-?-?-?-?-?-?- MH-No VB, LOF. N o flutters yet. Nausea improving. MFM US scheduled 01/2902/05/24 -?-?-?-?-?-?-?-?-?-?-?-?- 20w 6d 180 lb 4 oz (+1 lb 4 oz) 108/64 Negative -?-?-?-?-?-?-?-?-?-?-?-?- Negative 146 -?-?-?-?-?-?-?-?-?-?-?-?- -Had maria del rosario dis charge this weekend. No further bleeding. Confirmed complete previa. Reviewed pelvic rest, lifting restrictions. Rpt US 28 wk. 03/06/24 -?-?-?-?-?-?-?-?-?-?-?-?- 25w 1d 186 lb 6 oz (+7 lb 6 oz) 110/73 Trace -?-?-?-?-?-?-?-?--?-?-?-?- Negative 161 27 -?-?-?-?-?-?-?-?-?-?-?-?- JV- only complai nt is fatigue. glucola and ultrasound coming up next coupel of weeks. no lof, vaginal bleeding, or dec fm. 03/28/24 -?-?-?-?-?-?-?-?-?-?-?-?- 28w 2d 193 lb (+14 lb) 108/72 Trace -?-?-?-?-?-?-?-?-?-?-?-?- 100 g/dL 1,455 145 29 -?-?-?-?-?-?-?-?-?-?-?-?- SM- no vb lof go od fm no regular ctx 04/09/24 -?-?-?-?-?-?-?-?-?-?-?-?- 30w 0d 193 lb 4 oz (+14 lb 4 oz) 115/78 -?-?-?-?-?-?-?-?-?-?-?-?- 140 30 -?-?-?-?-?-?-?-?-?-?-?-?- JV- fasting cristiana ls are 105 and 102, starting metformin 500 mg qhs. has loom checker appt today. plan twice weekly nsts. will add bpp to the 2 growth scan appts to cut down on 2 nsts 04/23/24 -?-?-?-?-?-?-?-?-?-?-?-?- 32w 0d 195 lb (+16 lb) 125/75 Negative -?-?-?-?-?-?-?-?-?-?-?-?- Negative 130 -?-?-?-?-?-?-?-?-?-?-?-?- SM- increasing m etformin to 1000mg at night no vb lof good fm no reuglar ctx some headaches nl bps 04/26/24 -?-?-?-?-?-?-?-?-?-?-?-?- 32w 3d 194 lb 6 oz (+15 lb 6 oz) 115/78 Negative -?-?-?-?-?-?-?-?-?-?-?-?- Negative 125 -?-?-?-?-?-?-?-?-?-?-?-?- KW- NST only. re active 05/03/24 -?-?-?-?-?-?-?-?-?-?-?-?- 33w 3d 190 lb 6 oz (+11 lb 6 oz) 133/83 Negative -?-?-?-?-?-?-?-?-?-?-?-?- Negative 145 -?-?-?-?-?-?-?-?-?-?-?-?- MH-NST only reac tive 05/07/24 -?-?-?-?-?-?-?-?-?-?-?-?- 34w 0d 190 lb 2 oz (+11 lb 2 oz) 115/74 Negative -?-?-?-?-?-?-?-?-?-?-?-?- Negative 120 -?-?-?-?-?-?-?-?-?-?-?-?- JV- nst reactive . fasting glucose levels are elevated and 2 hrpp are also starting to creep up. will start NPH at night time. 05/10/24 -?--?-?-?-?-?-?-?-?-?-?-?- 34w 3d 191 lb 6 oz (+12 lb 6 oz) 117/77 Negative -?-?-?-?-?-?-?-?-?-?-?-?- Negative 130 -?-?-?-?-?-?-?-?-?-?-?-?- KW- 2 variables noted on NST-to WP for BPP and monitoring. insulin that was ordered last visit was denied by insurance and patient was able to just sheepskin pickler today. ROS Constitutional Constitutional: Denies change in weight, fatigue, fever(s), headache(s), poor appetite or weakness Eyes Eyes: Denies blurry vision, change in vision, seeing flashes or spots in vision ENT HEENT: Denies dizziness, headache(s), loss taste/smell or sore throat Cardiovascular Cardiovascular: Denies chest pain, dizziness, dyspnea, irregular heart rhythm, leg edema, palpitations, rapid heart rate or vomiting Respiratory/Chest Respiratory/Chest: Denies chest tightness, cough, dyspnea or breast pain Gastrointestinal Gastrointestinal: Denies abdominal pain, anorexia, constipation, cramping, diarrhea, hemorrhoids, vomiting or weight changes Genitourinary Genitourinary: Denies dysuria, flank pain, genital lesions, genital pain, urinary frequency or urinary urgency Musculoskeletal Musculoskeletal: Denies back pain, difficulty walking, joint pain, limited range of motion, muscle cramps or numbness Integumentary Integumentary: Denies lesions or unusual bruising Neurologic Neurologic: Denies abnormal movements, abnormal speech, dizziness, numbness, seizure-like activity or syncope Psychiatric Psychiatric: Denies anxiety, behavioral changes, change in appetite, change in libido, cognitive impairment, confusion, depression, difficulty concentrating, hallucinations or suicidal thoughts Endocrine Endocrinology: Denies excessive sweating, polydipsia or polyuria Hematologic/Lymphatic Hematologic/Lymphatic: Denies easy bleeding, easy bruising or lymphadenopathy Allergic/Immunologic Allergic/Immunologic: Denies itchy eyes, lip swelling, seasonal rhinorrhea, rhinitis, throat swelling, tongue swelling, eczemia, wheezing or asthma Vital Signs Vital Signs Vital Signs: 05/10/24 12:19 05/10/24 12:19 05/10/24 12:19 Temperature 97.5 F L Temperature Source Temporal Pulse Rate Respiratory Rate 16 Blood Pressure Blood Pressure Mean BP Systolic BP Diastolic Blood Pressure Source Blood Pressure Position Blood Pressure Location Pulse Ox Oxygen Delivery Method 05/10/24 12:25 05/10/24 12:25 05/10/24 12:26 Temperature Temperature Source Pulse Rate 90 85 Respiratory Rate Blood Pressure 118/76 Blood Pressure Mean BP Systolic 118 BP Diastolic 76 Blood Pressure Source Blood Pressure Position Blood Pressure Location Pulse Ox Oxygen Delivery Method 05/10/24 12:26 05/10/24 14:36 Temperature 98.3 F Temperature Source Temporal Pulse Rate 90 Respiratory Rate 17 Blood Pressure 122/84 H Blood Pressure Mean 96 BP Systolic BP Diastolic Blood Pressure Source Monitor Blood Pressure Position Semi-Fowlers Blood Pressure Location Left Arm Pulse Ox 98 100 Oxygen Delivery Method Room Air Weight Weight: 191 lb 2.252 oz Body Mass Index (BMI) 37.3 Physical Exam Const alert, oriented x3, no apparent distress and healthy appearing General Appearance: cooperative; Negative for anxious HEENT normocephalic Face and Sinus: normal facial exam Eyes EOMs intact bilaterally and no scleral icterus General Eye: normal appearance of both eyes Neck full ROM and supple Lymph Lymphatic: no lymphadenopathy noted Chest Chest: abnormal inspection of the chest Resp normal respiratory effort Effort and Inspection: able to speak in complete sentences Cardio regular rate GI soft to palpation and non-tender Inspection: gravid Palpation: soft; Negative for tender Back/Spine no CVA tenderness Extremity normal to inspection, full ROM and no clubbing, cyanosis or edema General Extremity: Negative for calf tenderness or edema Skin Lesions: no lesions Rashes: no rashes Psych mental status grossly normal Labs Labs Labs: Blood Type O POSITIVE Antibody Screen NEGATIVE Hct 37.4 % (37-47) Hgb 12.8 g/dL (12.0-15.0) Obstetrics Ultrasound Syphilis Total Ab Nonreactive (Nonreactive) Rubella IgG Antibody Reactive (Nonreactive) Hep Bs Antigen Non-Reactive (Nonreactive) Hepatitis C Antibody Non-Reactive (Nonreactive) Chlamydia DNA (YUNIER) Negative (Negative) N.gonorrhoeae DNA (YUNIER) Negative (Negative) HIV 1&2 Antibody Non-Reactive (Nonreactive) Glucose 1 Hr 50 gm 189 mg/dL (70-140) H Assessment & Plan (1) heart rate decelerations affecting management of mother: (2) Polyhydramnios affecting : COMMENT: Mild. Recheck SCOTT 4 wk (3) Gestational diabetes mellitus: QUALIFIERS: Gestational diabetes mellitus control: oral hypoglycemic-controlled Trimester: third trimester Qualified Code(s): O24.415 - Gestational diabetes mellitus in , controlled by oral hypoglycemic drugs COMMENT: 10 units NPH at bedtime and metformin 1000mg at night. twice weekly nsts delivery at 39 weeks or sooner for uncontrolled glucose levels. (4) contractions: (5) Obesity affecting : QUALIFIERS: Trimester: second trimester Obesity type affecting : unspecified obesity Qualified Code(s): O99.212 - Obesity complicating , second trimester COMMENT: HgBA1C ordered in NOB labs (6) H/O depression, currently : COMMENT: on fluoxetine. stable (7) H/O nicotine dependence: COMMENT: Stopped in September 2023 (8) H/O gestational diabetes in prior , currently : COMMENT: hbga1c added (9) H/O: : COMMENT: 2022 - RLTCS scheduled for 06/11 with JV (10) Supervision of high-risk : QUALIFIERS: Trimester: second trimester Qualified Code(s): O09.92 - Supervision of high risk , unspecified, second trimester COMMENT: [id number], NADEGE 06/18/24, [facility]: Shaquille Massey: Lai (11) : QUALIFIERS: Weeks of gestation: 34 weeks Qualified Code(s): Z3A.34 - 34 weeks gestation of COMMENT: Discussed genetic/carrier testing - declined (12) Left lower quadrant abdominal pain affecting : PLAN: Plan After discussing the patient's diagnosis and treatment plan options, patient wishes to proceed with surgical management. I have discussed with the patient the risks, benefits, and alternatives of the procedure which include but are not limited to risks of anesthesia, bleeding, infection, possible damage to bowel, bladder, or surrounding vasculature which could lead to additional surgery to evaluate any complications. plan for eron section
--- NOTE | 2024-05-10 16:36 | OP.PCM_ITS ---
Assessment & Plan (1) heart rate decelerations affecting management of mother: (2) Polyhydramnios affecting : COMMENT: Mild. Recheck SCOTT 4 wk (3) Gestational diabetes mellitus: QUALIFIERS: Gestational diabetes mellitus control: oral hypoglycemic-controlled Trimester: third trimester Qualified Code(s): O24.415 - Gestational diabetes mellitus in , controlled by oral hypoglycemic drugs COMMENT: 10 units NPH at bedtime and metformin 1000mg at night. twice weekly nsts delivery at 39 weeks or sooner for uncontrolled glucose levels. (4) contractions: (5) H/O depression, currently : COMMENT: on fluoxetine. stable (6) H/O nicotine dependence: COMMENT: Stopped in September 2023 (7) H/O gestational diabetes in prior , currently : COMMENT: hbga1c added (8) H/O: : COMMENT: [id number] - RLTCS scheduled for 06/11 with NikitaV (9) Supervision of high-risk : QUALIFIERS: Trimester: second trimester Qualified Code(s): O09.92 - Supervision of high risk , unspecified, second trimester COMMENT: [id number], NADEGE 06/18/24, [facility]: Shaquille Massey: Lai (10) : QUALIFIERS: Weeks of gestation: 34 weeks Qualified Code(s): Z3A.34 - 34 weeks gestation of COMMENT: Discussed genetic/carrier testing - declined (11) Left lower quadrant abdominal pain affecting : Maternal Data Information NADEGE Calculator Estimated Delivery Date Method Current WG Current Estimate 06/18/24 LMP (Certain) 34w 3d Final NADEGE: 06/18/24 Gestational age: 34 weeks 3 days [place] Doctor Who Attended Delivery: Shilpa Bautista Operative Report (OB) Details Procedure Type: low transverse Date of Procedure: 05/10/24 Procedure Start Time: 15:22 Procedure Stop Time: 16:08 Time of Delivery: 15:29 Pre-Operative Diagnosis: Repeat Elective and Nonreassuring Status Post-Operative Diagnosis: Same as Pre-operative diagnosis Classification: JAYNE Type of Anesthesia: Spinal Antibiotic Given: Clindamycin 600mg IV x1 and Gentamicin 1.5mg/kg IV x1 Drain: Bains to straight drain Estimated Blood Loss: 500cc Findings Description of surgery: The patient is a 28 y/o @ 34 weeks 3 days presented for repeat for decelerations. (see H&P for details) . Spinal anesthesia was placed without difficulty. Bains catheter was placed. The patient was placed in the dorsal supine position with leftward tilt. Patient was prepped and draped in the normal sterile fashion. Pfannenstiel skin incision was made with the scalpel and carried through to the underlying layer of fascia with the scalpel. Fascia was nicked in the midline and the incision extended laterally. The rectus bellies were dissected off superiorly and inferiorly with out complication both sharply and bluntly. The peritoneum was entered digitally. The incision was stretched and a low transverse uterine incision was made with the scalpel. The 's head was delivered atraumatically followed by the anterior and posterior shoulders without complication the rest of the infant delivered. The cord was clamped and cut and the was handed off to awaiting nurse. The placenta was delivered spontaneously immediately following and was noted to be intact and have a three-vessel cord. The uterus was exteriorized cleared of all clots and debris, and the incision was closed in a double layer closure using #1 Vicryl and #1 Monocryl. The ovaries and fallopian tubes were noted to be within normal limits. The uterus was returned to the maternal abdomen and gutters were cleared of all clots and debris. The peritoneum was closed with 3-0 Monocryl in a running fashion. Fascia was closed with 0 PDS in a running fashion. Subcutaneous tissue was copiously irrigated and the skin was closed with 3-0 Monocryl in a subcuticular fashion. Mepilex dressing was applied without complication. Patient was taken to recovery in stable condition. It was discussed with the patient that based on the clinical information obtained during this encounter, combined with her history, at this time I would recommend repeat sections for future deliveries if further pregnancies are desired. Surgical findings: viable male infant Jesus Presentation: Vertex Amniotic Membrane Rupture Type: Artificial Amniotic Fluid Description: Clear Placental Delivery Description: Spontaneous Placenta Disposition: [facility] Specimen collected: No Cord Vessel Description: 3 Vessels Cord Entanglement: None A gender: Male Delayed Cord Clamping: Yes Brush Fabrication Supervisor tool polisher: Yes Veterinary Receptionist: Regina Graff Tasks completed by early childhood teacher assistant: Closing and Retracting Additional bilingual administrative assistant?: Yes Additional Portal Developer #2: Anastasia Hagan Tasks completed by bilingual administrative assistant #2: Closing and Retracting Additional bilingual administrative assistant?: No Complications Complications: No Multi Select Codes Urinary/Genital Urinary/Genital CPT Codes: 77262 delivery only
--- NOTE | 2024-05-10 16:40 | DCINST_ITS ---
Discharge Instructions Diet Discharge Diet: No restrictions DC O2, CPAP, BIPAP needs Home O2 Discharge instructions: No Dressing / Incision Discharge Activity: May Not Drive (for 2 weeks or while taking narcotic pain medications.), May Shower and May Take a Tub Bath (in 7 days.) May resume sexual activity in: 4-6 weeks Weight Bearing Status: Full weight bearing Lifting Restrictions: 20 pounds Dressing / Incision Call your doctor if your incision/area has: Continuous Slow Oozing, Sudden Increased Bleeding, Increased Pain/ Swelling, Increased Redness and Foul Smelling Discharge Call your doctor if you observe: Fever of 101 or Higher and Using more than 1 pad per hour Suture Line Care: Avoid Pulling/Pushing and Avoid Pinching/Bending Cleanse incision/area with: Soap & Water and Keep Dressing Clean & Dry Follow Up Care Please Follow Up With: Priscilla Clarke DO When: Call [phone] to make an appointment for an incision check in 1-2 weeks. Test Results: Test results from this visit will be discussed in further detail at your follow- up appointment, if applicable. Discharge Plan Admission Admit Date/Time: 05/10/24 14:00 Primary Reason for Your Visit: Attending Provider: Priscilla Clarke Primary Care Provider: Care Physician,Gianna Primary Discharge Orders/Prescriptions Prescriptions: New ibuprofen 800 mg tablet 800 mg PO Q8H PRN (Reason: pain) Qty: 30 0RF oxycodone-acetaminophen [Percocet] 5-325 mg tablet 1 tab PO Q4H PRN (Reason: pain) 7 Days Qty: 20 0RF Continued DHA 200 mg capsule 1 mg PO DAILY Rx Instructions: one tablet ondansetron HCl 4 mg tablet 4 mg PO Q6H PRN (Reason: nausea and vomiting) Qty: 60 3RF fluoxetine 40 mg capsule 80 mg PO DAILY Qty: 180 1RF hydroxyzine HCl 10 mg tablet 10 mg PO TID PRN (Reason: anxiety) ascorbic acid (vitamin C) [C-500] 500 mg tablet 500 mg PO DAILY metformin 500 mg tablet 1,000 mg PO QHS (DME) Blood Glucose Test Strip See Rx Instructions .ROUTE .MEDSUPPLY Qty: 120 6RF Rx Instructions: Check blood sugars Fasting and 2 hours after breakfast, lunch, and dinner. (DME) blood-glucose meter Misc See Rx Instructions .ROUTE .MEDSUPPLY Qty: 1 0RF Rx Instructions: As directed (DME) lancets [Droplet Lancets] 30 gauge misc See Rx Instructions .ROUTE .MEDSUPPLY Qty: 200 6RF Rx Instructions: Check blood sugars fasting and 2 hours after breakfast, lunch, and supper. Discontinued Humulin N NPH Insulin KwikPen 100 unit/mL (3 mL) insulin pen 10 unit subcut QPM Qty: 15 4RF Referrals / Follow Up: Care Physician,No Primary [Primary Care Provider] - Disposition Disposition (needs filled in before D/C Order can be placed): Home, Self Care
[2024-05-10 17:12] LABS: Bedside Glucose 84 mg/dL (74-106)
[2024-05-10] MEDS: Lactated Ringers 1,000 ML 100 ML IV (17:28)
[2024-05-10] MEDS: Ketorolac 30 MG/ML Syringe IV ×2 (17:42→23:49)
[2024-05-10] MEDS: metFORMIN HCl 500 MG Tablet PO (19:04)
[2024-05-10] MEDS: SimETHICONE 80 MG Chewable Tablet PO (19:04)
[2024-05-10] MEDS: 0.9% Saline Lock 10 ML Syringe IV (23:50)
[2024-05-11] MEDS: Fluoxetine HCl 40 MG CAPSULE 80 MG PO ×2 (01:04→21:39)
[2024-05-11 01:20] VITALS: BP 134/70; PULSE 73; RESP 16; TEMP 36.9; O2SAT 99
[2024-05-11] MEDS: Acetaminophen 500 MG Tablet 1000 MG PO ×4 (03:09→21:39)
[2024-05-11 05:45] VITALS: PULSE 70; RESP 18; O2SAT 98
[2024-05-11] MEDS: 0.9% Saline Lock 10 ML Syringe IV ×2 (05:49→12:07)
[2024-05-11] MEDS: Ketorolac 30 MG/ML Syringe IV ×2 (05:50→12:07)
[2024-05-11] MEDS: SimETHICONE 80 MG Chewable Tablet PO ×3 (05:51→23:59)
[2024-05-11 06:43] LABS: Bedside Glucose 78 mg/dL (74-106)
[2024-05-11 06:44] LABS: Hematocrit 31.2 % (37-47); Hemoglobin 10.6 g/dL (12.0-15.0); Mean Corpuscular Hgb 31.4 pg (27.0-32.0); Mean Corpuscular Volume 92.3 fL (81-99); Mean Platelet Vol. 12.3 fl (6.2-12.0); Platelet Count 168 K/mm3 (150-450); RBC Distribution Width CV 13.2 % (11.6-14.6); RBC Distribution Width SD 44.6 fl (35.1-43.9); Red Blood Count 3.38 M/mm3 (4.2-5.4); White Blood Count 12.3 K/mm3 (4.4-11.0)
[2024-05-11] MEDS: metFORMIN HCl 500 MG Tablet PO ×2 (08:11→17:20)
--- NOTE | 2024-05-11 08:40 | PN.OBGYN_ITS ---
Subjective Subjective Patient doing well without complaints. Tolerating PO. Ambulating and voiding without difficulty. Feeding well. Denies chest pain, shortness of breath, calf pain/swelling, fevers, chills, lightheadedness. Objective Data Objective Data Vital Signs: Vital Signs Temp Pulse Resp BP Pulse Ox O2 Del Method 98.4 F 70 18 134/70 H 98 Room Air 05/11/24 01:20 05/11/24 05:45 05/11/24 05:45 05/11/24 01:20 05/11/24 05:45 05/11/24 05:45 Oxygen Delivery Method Room Air Weight: 191 lb 2.252 oz Body Mass Index (BMI) 37.3 Intake & Output: Intake and Output for Last 24 Hours 05/09/24 05/10/24 05/11/24 23:59 23:59 23:59 Intake Total 1357.75 / 1357.75 988.33 / 988.33 Output Total 700 / 900 500 / 500 Balance 657.75 / 457.75 488.33 / 488.33 Lab / Micro Data 05/11/24 06:10 Labs: Laboratory Results - last 24 hr 05/10/24 14:15: WBC 9.4, RBC 4.11 L, Hgb 12.8, Hct 37.4, MCV 91.0, MCH 31.1, MCHC 34.2, RDW Std Deviation 43.2, RDW Coeff of Caitlin 13.1, Plt Count 207, MPV 12.1 H, Immature Gran % (Auto) 0.600, Neut % (Auto) 76.7 H, Lymph % (Auto) 15.9 L, [place] % (Auto) 5.7, Eos % (Auto) 0.7, Baso % (Auto) 0.4, Absolute Neuts (auto) 7.2, Absolute Lymphs (auto) 1.50, Nucleated RBC % 0, Syphilis Total Ab Nonreactive, Blood Type O POSITIVE, Antibody Screen NEGATIVE 05/10/24 14:41: POC Glucose 80 05/10/24 16:52: POC Glucose 84 05/11/24 06:10: WBC 12.3 H, RBC 3.38 L, Hgb 10.6 L, Hct 31.2 L, MCV 92.3, MCH 31.4, MCHC 34.0, RDW Std Deviation 44.6 H, RDW Coeff of Caitlin 13.2, Plt Count 168, MPV 12.3 H 05/11/24 06:18: POC Glucose 78 Physical Exam Const alert and oriented x3 Chest inspection of chest normal and inspection of breasts normal Resp normal respiratory effort, normal air movement and no use of accessory muscles Effort and Inspection: able to speak in complete sentences GI normal to inspection, nondistended, normoactive bowel sounds Uterus Palpation: uterus fundus firm Extremity normal to inspection, full ROM and no calf tenderness Skin no rashes or lesions noted Skin Narrative: dressing with small marked areas, no increase drainage. intact Psych mental status grossly normal Assessment & Plan (1) Status post delivery: COMMENT: bby #1 status post eron section for intolerance to labor, abruption- JV baby boy aurelia Baby #2 cs for decels with JV- baby ronny Lee (2) Gestational diabetes mellitus: QUALIFIERS: Gestational diabetes mellitus control: oral hypoglycemic-controlled Trimester: third trimester Qualified Code(s): O24.415 - Gestational diabetes mellitus in , controlled by oral hypoglycemic drugs COMMENT: 10 units NPH at bedtime and metformin 1000mg at night. twice weekly nsts delivery at 39 weeks or sooner for uncontrolled glucose levels. PLAN: pp 6 week glucose tolerance (3) H/O depression, currently : COMMENT: on fluoxetine. stable PLAN: Plan s/p LTCS PPD # 1 1. routine post care 2. breast feeding- support given 3. rh positive 4. rubella immune
[2024-05-11 08:45] VITALS: BP 115/66; PULSE 99; RESP 14; TEMP 36.6; O2SAT 98
[2024-05-11] MEDS: Senna/Docusate Sodium 1 Tablet PO (09:04)
[2024-05-11 12:13] VITALS: BP 115/70; PULSE 74; RESP 14; TEMP 36.9; O2SAT 99
[2024-05-11] MEDS: Ibuprofen 600 MG Tablet PO ×2 (17:20→23:53)
[2024-05-11] MEDS: oxyCODONE 5 MG Tablet PO ×2 (18:47→22:47)
[2024-05-11 20:00] VITALS: BP 124/72; PULSE 91; RESP 16; TEMP 36.6; O2SAT 99
[2024-05-11 23:50] VITALS: BP 119/75; PULSE 92; RESP 16; TEMP 36.6; O2SAT 98
[2024-05-12 03:34] VITALS: BP 118/88; PULSE 100; RESP 16; TEMP 36.7; O2SAT 97
[2024-05-12] MEDS: Acetaminophen 500 MG Tablet 1000 MG PO ×3 (05:40→17:58)
[2024-05-12] MEDS: Ibuprofen 600 MG Tablet PO ×3 (06:34→17:57)
--- NOTE | 2024-05-12 08:06 | PCM.PN.CNM ---
Subjective Subjective Patient doing well without complaints, except for burning sensation to the right lower quadrant around dressing. Tolerating PO. Ambulating and voiding without difficulty. Feeding well. Denies chest pain, shortness of breath, calf pain/swelling, fevers, chills, lightheadedness. Objective Data Objective Data Vital Signs: Vital Signs Temp Pulse Resp BP Pulse Ox O2 Del Method 98.1 F 100 16 118/88 H 97 Room Air 05/12/24 03:34 05/12/24 03:34 05/12/24 03:34 05/12/24 03:34 05/12/24 03:34 05/12/24 03:34 Oxygen Delivery Method Room Air Weight: 191 lb 2.252 oz Body Mass Index (BMI) 37.3 Intake & Output: Intake and Output for Last 24 Hours 05/10/24 05/11/24 05/12/24 23:59 23:59 23:59 Intake Total 1357.75 / 1357.75 988.33 / 988.33 Output Total 700 / 900 500 / 500 Balance 657.75 / 457.75 488.33 / 488.33 Lab / Micro Data 05/11/24 06:10 Physical Exam Const alert and oriented x3 Chest inspection of chest normal and inspection of breasts normal Resp normal respiratory effort, normal air movement and no use of accessory muscles Effort and Inspection: able to speak in complete sentences GI normal to inspection, nondistended, normoactive bowel sounds Uterus Palpation: uterus fundus firm Extremity normal to inspection, full ROM and no calf tenderness Skin no rashes or lesions noted Skin Narrative: dressing with small marked areas, no increase drainage. intact, erythema to dressing borders. erythema to skin on antecubital where bandaid adhesive was Psych mental status grossly normal Assessment & Plan (1) Status post delivery: COMMENT: bby #1 status post eron section for intolerance to labor, abruption- JV baby boy aurelia Baby #2 cs for decels with JV- baby ronny Lee PLAN: s/p LTCS PPD # 2 1. routine post care 2. breast feeding- support given 3. rh positive 4. rubella immune 5. remove mepliex dressing, cleanse and apply ABD pad with paper tape. 6. plan d/c home later this evening
[2024-05-12] MEDS: Senna/Docusate Sodium 1 Tablet PO (09:27)
[2024-05-12] MEDS: metFORMIN HCl 500 MG Tablet PO ×2 (09:27→17:46)
[2024-05-12 09:29] VITALS: BP 115/88; PULSE 96; RESP 16; TEMP 36.8; O2SAT 99
--- NOTE | 2024-05-12 10:45 | CASEMGMT ---
Social Work Assessment Labor and Delivery Unit Patient Address: [address] [place], [place] [address] [address] Phone number: [phone] Date of Referral: 05/10/2024 Time of Referral: 22:44 Referred By: Priscilla Clarke Date of Intervention: 05/12/2024 Time of Intervention: 10:45 Reason for Referral: Mental Health History obtained from: Medical records, mother of baby (MOB) and father of baby (FOB).? Household composition: MOB, FOB (Nuno Monge), their 2 year old son Bryson Monge and son Jesus Monge, born 05/10/2024. Patient's parent/guardian status: MOB and FOB have been together for years 7 and are not . ???Both are actively involved and will be providing care for baby. MOB denied any concerns with domestic violence and described a positive and supportive relationship with the FOB. Medical History: ?: 3, Para, now 2.? RADHA had 1 SAB in 2020. RADHA received PNC through [facility] beginning at 13 weeks and 1 day. Apgars: 9 and 9. Weight: 4lbs, 14oz.Porcelain Enamel Repairer: Dr. Holland Educational Status: MOB and FOB denied any issues or concerns with reading or writing. MOB and FOB both earned their HS diploma. Financial Status: MOB and FOB reported their income is sufficient to meet the needs of their family at this time. 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 Company is [employer]. RADHA stated she is able to take as much time off for maternity leave as she needs to. The FOB also works full-time as an [employer]. The FOB is taking the next 2 months off to be at home with MOB and . Supplies: MOB and FOB reported they have all the supplies they need for baby at this time including but not limited to: Car Seat, bassinet, pack-n-play, crib, diapers, breast pump, bottles and clothing. RADHA stated she is in the process of trying to get a new breast pump. Childcare/Caregiver(s):? RADHA identified herself as the person who will be the primary caregiver as she will be able to care for while working from home and described her job as very flexible. The FOB will also provide care for during the times he?s home. Transportation:? MOB and FOB reported they are both licensed drivers and have a reliable vehicle to take baby to and from all medical appointments. No transportation issues identified. Programs/Agencies Involved: RADHA is currently connected with a psychiatrist Dr. Gómez, who prescribes and monitors her medications. ?MOB reported she?s previously been in and out of ?a lot? of counseling, however is not currently seeing a mental health therapist. Children Services/Legal Issues:? Denied. Behavioral Health Issues: ??Mental Health History: RADHA has a history of anxiety, depression, PPD, OCD, PTSD and a history of panic attacks. MOB reported her symptoms are effectively managed at this time however did report that she had a panic attack last night that lasted for roughly 10-15 minutes however was able to work through it successfully.? MOB reported she was having difficulty feeling torn between being here the at the hospital and being away from her son at home. MOB reported that prior to last night, it has ?been a long time? since she had had a panic attack. MOB denied any current depression. ?FOB denied any mental health history. ?Substance Use History:?? MOB and FOB denied any history of drug or alcohol abuse.? RADHA used to smoke cigarettes however quit in August of 2021. RADHA used to vape however stated she quit in or 2023 as soon as she found out she was . ???Family History: ?s maternal grandfather (MGF) is an alcoholic however is not involved. MOB reported her family history of mental health is unknown and the FOB denied any family history of drug or alcohol abuse or mental health on his side of the family. ???Drug Screens: ?None obtained at the time of this admission. ? Family/Social Stressors: ?MOB and FOB denied any current family or social stressors. Support Systems: Ample.? RADHA identified her biggest supports as the FOB, her sister Clementina and ?s paternal grandmother (PGM). Depression/Shaken Baby/Safe Sleeping: soda worker provided verbal and written education on PPD, Safe Sleeping and Shaken Baby.? Parents verbalized an understanding. ??? ASSESSMENT:? MOB and FOB provided consent to social work visit. Upon arrival, RADHA was in the hospital bed and the FOB was close-by on the couch. Baby was not in the room and was in the special care nursery (SCN). MOB and FOB were both verbally engaged and very cooperative.? soda worker observed positive interaction between the MOB and FOB and MOB verbalized what time she needed to go feed in the SCN. Both verbalized excitement towards being able to spend time with and eventually being able to bring home though anticipated discharge date is unknown at this time. At the end of the assessment, certified social workers in health care requested to speak with the MOB alone which MOB and FOB were both agreeable to. MOB reported feeling safe, denied any previous or current domestic violence. Drug or alcohol abuse or unmanaged mental health issues with either herself of the FOB. Safe Plan of Care for infant related to substance use: N/A; not needed. ? PLAN:? Baby to be discharged home when ready.? soda worker also provided written information on depression, depression resources and Help Me Grow as additional resources offered by certified social workers in health care which MOB and FOB accepted. No other services requested or indicated. Priscilla Luong, SOLAR SALES CONSULTANT, [employer]LEPHANT [employer]
[2024-05-12] MEDS: SimETHICONE 80 MG Chewable Tablet PO (11:55)
[2024-05-12 11:56] VITALS: BP 132/85; PULSE 89; RESP 16; TEMP 36.7; O2SAT 98
[2024-05-12 18:00] VITALS: BP 133/83; PULSE 78; RESP 16; TEMP 36.8; O2SAT 99
== END 2024-05-12 18:10 | disposition home or self-care (01) | DRG 788 ==
LOC: WPOUT 14:18 → WP 14:19
PROVIDERS: Registered Nurse; Admitting Provider Obstetrics & Gynecology; Referring Provider Obstetrics & Gynecology; Visit Provider Obstetrics & Gynecology
DX: O76 Abnormality in fetal heart rate and rhythm complicating labor and delivery (principal); E66.9 Obesity, unspecified; F32.A Depression, unspecified; O24.425 Gestational diabetes mellitus in childbirth, controlled by oral hypoglycemic drugs; O99.214 Obesity complicating childbirth; O34.211 Maternal care for low transverse scar from previous cesarean delivery; O26.893 Other specified pregnancy related conditions, third trimester; R10.32 Left lower quadrant pain; Z3A.34 34 weeks gestation of pregnancy; O99.344 Other mental disorders complicating childbirth; O99.892 Other specified diseases and conditions complicating childbirth; Z37.0 Single live birth; Z87.891 Personal history of nicotine dependence
CPT/HCPCS: 59025; 59050; 82962; 85025; 85027; 86780; 86850; 86900; 86901; 99221; A4216; G0378; J2405

== ENCOUNTER → 2024-06-18 | Outpatient (CLI) | payer OTHER, SELFPAY ==
[2024-06-21 22:07] LABS: HPV APTIMA, High Risk Positive (Negative); HPV Genotype 16, Aptima Negative (Negative); HPV Genotype 18,45 Aptima Negative (Negative)
== END | disposition home or self-care (01) ==
LOC: LABSPEC 14:07
PROVIDERS: Referring Provider Obstetrics & Gynecology; Visit Provider Obstetrics & Gynecology
DX: Z12.4 Encounter for screening for malignant neoplasm of cervix (principal)
CPT/HCPCS: 87624; 88175; G0145

== ENCOUNTER → 2024-08-27 | Outpatient (CLI) | payer SELFPAY | END | disposition home or self-care (01) | LOC: LAB 15:23 | PROVIDERS: Referring Provider Student in an Organized Health Care Education/Training Program; Visit Provider Student in an Organized Health Care Education/Training Program | DX: F42.2 Mixed obsessional thoughts and acts (principal) | CPT/HCPCS: 36415; 84439; 84443 ==

== ENCOUNTER → 2025-01-07 | Outpatient (CLI) | payer SELFPAY | END | disposition home or self-care (01) | LOC: LABSPEC 16:15 | PROVIDERS: Visit Provider Nurse Practitioner Women's Health | DX: N89.8 Other specified noninflammatory disorders of vagina (principal) | CPT/HCPCS: 87070; 87205 ==